=== PATIENT | male | born 1945 | race Caucasian/White ===

== ENCOUNTER 2025-02-17 05:58 | Emergency (ER) | payer MEDICARE, SELFPAY ==
--- NOTE | ~2025-02-17 | CT_ITS ---
EXAMINATION: CT brain wo con DATE: 02/17/2025 06:28 INDICATION: Fall with right frontal scalp hematoma. TECHNIQUE: Computed tomography (CT) of the head was performed without intravenous contrast. Sagittal and coronal reconstructions were performed. The mA was adjusted according to patient size. Iterative reconstruction technique was employed. The dose-length product was 681.00 mGy-cm. COMPARISON: None FINDINGS: Small right frontal scalp hematoma. No fracture. No acute intracranial hemorrhage, acute infarction o r abnormal extra axial fluid collection. There is mild scattered white matter hypoattenuation consist ent with chronic small vessel ischemic disease. Symmetric prominence of the sulci and ventricles cons istent with moderate to severe age-appropriate diffuse cerebral volume loss. No mass/mass effect. Com plete opacification of the right maxillary sinus which demonstrates thickened sclerotic [place] consist ent with chronic sinusitis. Small amount of mucus versus mucosal thickening at the dependent aspect o f the remaining sphenoid sinus change of prior bilateral ethmoidectomies, right-sided turbinectomy wi th resection of the anterior [place] of the bilateral sphenoid sinuses. Changes of bilateral intraocula r lens replacement. The orbits and mastoid air cells are normal. IMPRESSION: 1. No fracture or acute intracranial process. 2. Age-related changes including moderate to severe diffuse volume loss and mild scattered white rene er hypoattenuation consistent with chronic small vessel ischemic disease. 3. Postoperative change of the paranasal sinuses chronic right maxillary sinusitis. Reviewed, dictated and finalized at location A. IMPRESSION: 1. No fracture or acute intracranial process. 2. Age-related changes including moderate to severe diffuse volume loss and mil d scattered white matter hypoattenuation consistent with chronic small vessel i schemic disease. 3. Postoperative change of the paranasal sinuses chronic right maxillary sinusi tis.
--- NOTE | ~2025-02-17 | CT_ITS ---
EXAMINATION: CT cervical spine wo con DATE: 02/17/2025 06:29 INDICATION: Neck pain post fall one day prior TECHNIQUE: Computed tomography (CT) of the cervical spine was performed without intravenous contrast. Automated exposure control and iterative reconstruction technique were employed. The dose-length pro duct was 526.55 mGy-cm. COMPARISON: None FINDINGS: Slight dextrocurvature. 2 mm anterolisthesis of C3 on C4 and slight reversal of the more caudal cervi rohan spine. Severe osteoarthritis at the atlantoaxial articulation. Vertebral body heights are normal with anterior fusion at C6-C7. No acute fracture. There is moderate disc height loss at C5-C6, T2-3 a nd visualized portion of T3-T4. Mild disc height loss at C3-C4, C4-C5, C7-T1 and T1-T2. Mild central canal stenosis resulting from the spondylolisthesis at C3-C4, related to hypertrophic change at the f used C6-C7 disc space and small disc bulges at the intervening C4-C5 and C5-C6 levels. There is moder ate to severe multilevel bilateral cervical facet and uncovertebral osteoarthritis. This contributes to mild multilevel bilateral cervical neural foraminal stenosis. Atherosclerotic calcifications at th e bilateral carotid bulbs. Cervical soft tissues are otherwise unremarkable. Visualized apices of leana gs are clear. IMPRESSION: 1. Moderate to severe cervical spondylosis with no acute osseous abnormality. Reviewed, dictated and finalized at location A.
[2025-02-17 06:03] VITALS: BP 152/69; PULSE 67; RESP 18; TEMP 36.1; O2SAT 98
--- NOTE | 2025-02-17 06:03 | ED.HEATRA ---
HPI - Head Injury General Chief complaint: Fall Stated complaint: Altered mental status after fall Time Seen by Provider: 02/17/25 06:01 Source: patient Mode of arrival: wheelchair Limitations: dementia History of Present Illness HPI Narrative: Patient is an 79-year-old male from the nursing facility who walked right into a wall last night per his history. Nursing facility found him this morning with a goose egg on his right forehead. He is not on blood thinners beyond aspirin. He does have severe dementia. Patient does have a headache. MD Complaint: head injury and head pain Onset (ago): hour(s) ( In the past 6-10 hours) Mechanism of Injury: fall Place: home Loss of Consciousness: unsure Location of injury: frontal ( right forehead) and face Severity: mild Severity scale (1-10): 3 Quality: sharp and aching Radiation: none Other Injuries: none Context: on aspirin Associated symptoms: denies other symptoms Review of Systems Review of Systems: All systems reviewed & are unremarkable except as noted in HPI and below Constitutional: Constitutional: Reports no additional constitutional complaints Eyes: Eyes: Reports no additional eye complaints ENT: Reports system reviewed and no additional complaints, except as documented Cardiovascular: Cardiovascular: Reports no additional cardiovascular complaints Respiratory: Respiratory: Reports no additional respiratory complaints Gastrointestinal: Gastrointestinal: Reports no additional gastrointestinal complaints Genitourinary: Genitourinary: Reports no additional male genitourinary complaints Musculoskeletal: Musculoskeletal: Reports no additional musculoskeletal complaints Integumentary/Breasts: Skin/Breast: Reports system reviewed and no additional complaints, except as docu Neurologic: Reports system reviewed and no additional complaints, except as documented Psychiatric: Psychiatric: Reports no additional psychiatric complaints Endocrine: Endocrine: Reports no additional endocrine complaints Hematologic/Lymphatic: Hematologic/Lymphatic: Reports no additional hematologic/lymphatic complaints Allergic/Immunologic: Allergic/Immunologic: Reports no additional allergic/immunologic complaints Exam Const: General: healthy appearing Nutritional Appearance: well nourished Limitations: other limitations ( severe dementia) HENMT: Head: normal to inspection Ears: external ears normal Face/Nose/Sinus: Normal external nose present Eyes: Conjunctivae: conjunctivae normal Pupils: Equal, round and reactive pupils present EOM: EOMs intact bilaterally Neck: Neck: normal visual inspection Chest: Chest palpation & inspection: normal inspection of the chest Resp: Effort & Inspection: normal respiratory effort and not labored Auscultation: clear to auscultation bilaterally and no crackles Cardio: Rate: regular rate Rhythm: regular rhythm Heart sounds: no murmurs GI: Inspection: non-distended GI Palp: Yes Soft to palpation and No Tenderness to palpation present (GI) Auscultation: normal bowel sounds : General: Yes bladder normal to palpation Back/Spine/Pelvis: Back: no CVA tenderness Skin: General skin exam: normal color Rashes: no rashes Wounds: wound noted and wounds noted Other: right forehead has a large hematoma formation with localized ecchymosis and superficial laceration in the middle Neuro: General: moves all extremities, no meningeal signs and no focal motor deficits Cranial nerves: Yes CN's II-XII intact bilaterally Speech: normal speech Gait exam (Neuro): Normal gait present Extrem: General: normal to inspection Psych: Mental Status: mental status grossly normal Affect: normal affect Attitude: cooperative Course Vital Signs Vital signs: Vital Signs Temperature 36.1 C L 02/17/25 06:03 Pulse Rate 67 02/17/25 06:03 Respiratory Rate 18 02/17/25 06:03 Blood Pressure 152/69 H 02/17/25 06:03 Pulse Oximetry 98 02/17/25 06:03 Oxygen Delivery Room Air 02/17/25 06:03 Temperature 36.1 C L 02/17/25 06:03 Pulse Rate 67 02/17/25 06:03 Respiratory Rate 18 02/17/25 06:03 Blood Pressure 152/69 H 02/17/25 06:03 Pulse Oximetry 98 02/17/25 06:03 Oxygen Delivery Room Air 02/17/25 06:03 MDM - Head Injury MDM Narrative Medical decision making narrative: patient is an 79-year-old male with a fall and head injury last night at the nursing facility. We will do CT scans this time. Imaging Data Attestation: I personally reviewed and interpreted this imaging study as follows: Radiologist's impression: CT scan of the head is negative for acute process Discharge Plan Discharge Clinical Impression: Head injury, Fall Patient Disposition: Home Condition: Stable Instructions: Head Injury (ED) Patient Language: Kyrgyz Follow-up/Referrals: David Reyes MD [Primary Care Provider] -
--- OUTSIDE RECORDS SUMMARY | 2025-02-17 06:03 | XMS_ITS ---
Author Organization [facility] Care Team Providers Care Professional Tutor Name Role Phone Cesia Domínguez Unavailable Unavailable David Reyes Unavailable Unavailable Shruthi Zuñiga Unavailable Unavailable Chirag Earl Unavailable Unavailable Allergies and adverse reactions Code CodeSystem Substance Reaction Severity StartDate Concern Status 468048403 SNOMED CT Cephalosporins Unknown 02/02/2025 ac tive 2180 RXNORM ceFAZolin Unknown 02/02/2025 active Care Team Name Role Address Phone Organization Dates David Reyes PCP [address] [place], [address], [facility] (Office): : : : [facility] 02/02/2025 - present Cesia Domínguez [address] [place] [address], [address], [facility] (Cell): [facility] 02/02/2025 - present Shruthi Zuñiga [address], [place], [place], [facility], [place] (Office): [facility] 02/02/2025 - present Chirag Earl [address], [place], [address], [place] (Office): [facility] 02/02/2025 - present Goals Section Description Status Target Date Decrease risk of fall and/or minimize injuries from falls X 90 days Active 02/22/2025 Jose Daniel will participate in 5 activities of their choosing, per week, through the next review. Active 02/22/2025 Mr. Chin have no nutritio nal/weight problems during review period. Active 02/22/2025 My personal preferences will be assessed and addressed by facility staff as reasonable through the review date. Active Resident will continue to pe rform current level of ADL function through review date Active 02/22/2025 Resident will maintain accep table quality of life through next review Active 02/22/2025 Resident will participate wi th ADL's daily and ADL status will improve by target date Active 02/22/2025 Resident will remain safely in facility through next review Active 02/22/2025 Resident wishes will be hono red through next review Code Status reviewed: Active 02/22/2025 Resident wishes will be honored thru next review Active 02/22/2025 Residents spiritual needs wi ll be met, as identified by the resident through the next review. Active 02/22/2025 The resident will not have a n interruption in normal activities due to pain through next review Active 02/22/2025 The resident will receive tr eatment as ordered without complications Active 02/22/2025 The resident will verbalize adequate pain relief of pain or ability to cope with incompletely relieved pain through next review Active 02/22/2025 Will adjust to facility as e videnced by coming out of room thru next review Active 02/22/2025 Will adjust to facility as e videnced by participating in activities thru next review Active 02/22/2025 Functional Status Code Name Recorded Time Value Entered By Chair/xnc-iv-abqfk transfer 02/17/2025 Partial/moder ate assistance [facility] Eating 02/17/2025 Not assessed [facility] Feeding or Eating 02/16/2025 Independent bpittman Indicate the type of wheelch air or scooter used 02/17/2025 Not assessed [facility] Lying to sitting on side of bed 02/17/2025 Partial/m oderate assistance [facility] Oral hygiene 02/17/2025 Not assessed [facility] Personal hygiene 02/17/2025 Not assessed [facility] Roll left and right 02/17/2025 Not assessed [facility] Sit to lying 02/17/2025 Partial/moderate assistance [facility] Sit to stand 02/17/2025 Partial/moderate assistance [facility] Toilet transfer 02/17/2025 Not assessed [facility] Toileting hygiene 02/17/2025 Dependent [facility] Walk 10 feet 02/17/2025 Not assessed [facility] Walk 150 feet 02/17/2025 Not assessed [facility] Wheel 150 feet 02/17/2025 Not assessed [facility] Immunizations Immunization Status Vaccine Details Vaccine Code CodeSystem Date Notes TB 2 Step Mantoux Skin Test completed tuberculin skin test; unspecified formulation lotNumber: [id number] expiry: 10/27/2027 Mfg: TURBERSOL Given 0.1 ml Right Forearm intradermally Step 1 of Multi-step with next step required 98 CVX created date: 02/06/2025 consent date: 02/05/2025 administer ed date: 02/05/2025 Prevnar 20 completed Pneumococcal conjugate vaccine 20-valent (PCV20), polysaccharide [id number] conjugate, adjuvant, preservative free Given 0.5 ml intramuscularly 216 CVX created date: 02/09/2025 consent date: 02/08/2025 administer ed date: 02/09/2025 Educated by on 02/08/2025 COVID-19, mRNA, LNP-S, PF, 30 mcg/0.3 mL dose, bonilla-sucrose completed SARS-COV-2 (COVID-19) vaccine, mRNA, spike protein, LNP, preservative free, 30 mcg/0.3mL dose, bonilla-sucrose formulation expiry: 02/06/2026 Mfg: Comirnaty Given 0.3 ml Left Deltoid intramuscularly 217 CVX created date: 02/13/2025 consent date: 02/12/2025 administer ed date: 02/12/2025 Medications Section Medication Name Status Code CodeSystem Dose Route Frequency Admin Type Sig Text Start Date End Date Levothyroxine Sodium Oral Tablet 50 MCG active 539698 RXNORM 50 mcg Oral one time a day Routine Give 50 mcg by mouth one time a day for thyroi d 2024 - Furosemide Oral Tablet 80 MG aborted 915492 RXNORM 80 mg Oral one time a day Routine Give 80 mg by mouth one time a day for edema 02/08 Nystatin Powder active n/a n/a Topical as needed PRN Apply to affect ed area topica lly every 12 hours as needed for affect ed area 2024 - Potassium Chloride Jessica ER Oral Tablet Extended Release 20 MEQ aborted 322770 4 RXNORM 2 tablet Oral one time a day Routine Give 2 tablet by mouth one time a day for supple ment 02/08 Carvedilol Oral Tablet 12.5 MG active 19991127 RXNORM 12.5 mg Oral two times a day Routine Give 12.5 mg by mouth two times a day for HTN 2024 - Citalopram Hydrobromide Oral Tablet 40 MG aborted 259950 RXNORM 40 mg Oral one time a day Routine Give 40 mg by mouth one time a day for depres abhay/a nxiety 02/08 Betamethasone Valerate External Cream 0.1 % active 101406 RXNORM n/a n/a Topical two times a day Routine Apply to affect ed area topica lly two times a day for skin care 2024 - Magnesium Oxide Oral Tablet 400 MG aborted 1 tablet Oral one time a day Routine Give 1 tablet by mouth one time a day for supple ment 02/05 Insulin Glargine Subcutaneous Solution 100 UNIT/ML aborted 928203 RXNORM 25 unit Subcuta neous at bedtime Routine Inject 25 unit subcut aneous ly at bedtim e for DM 02/02 hydrOXYzine Pamoate Oral Capsule 25 MG aborted 592272 RXNORM 25 mg Oral as needed PRN Give 25 mg by mouth every 6 hours as needed for itchin g 02/06 Vitamin D3 Oral Tablet 25 MCG aborted 1 tablet Oral one time a day Routine Give 1 tablet by mouth one time a day for supple ment 02/08 Magnesium Oxide Tablet 400 MG aborted 869265 RXNORM 1 tablet Oral one time a day Routine Give 1 tablet by mouth one time a day for supple ment 02/08 Aspirin 81 Oral Tablet Chewable aborted 81 millig hector Oral one time a day Routine Give 81 millig hector by mouth one time a day for supple ment 02/08 Nystatin External Cream 617503 UNIT/GM active 868860 RXNORM n/a n/a Topical as needed PRN Apply to affect ed area topica lly every 12 hours as needed for dry skin 2024 - QUEtiapine Fumarate Oral Tablet 25 MG active 392285 RXNORM 12.5 mg Oral at bedtime Routine Give 12.5 mg by mouth at bedtim e for behavi ors 2024 - Atorvastatin Calcium Oral Tablet 20 MG active 459137 RXNORM 20 mg Oral at bedtime Routine Give 20 mg by mouth at bedtim e for choles terol 2024 - Artificial Tears Ophthalmic Ointment 83-15 % active 1 ribbon Ophthal sydney as needed PRN Instil l 1 ribbon in both eyes every 24 hours as needed for dry eyes 2024 - Gabapentin Oral Tablet 600 MG active 239752 RXNORM 600 mg Oral two times a day Routine Give 600 mg by mouth two times a day for neurop athy 2024 - Omeprazole Oral Capsule Delayed Release 40 MG aborted 20021105 RXNORM 40 mg Oral one time a day Routine Give 40 mg by mouth one time a day for GERD 02/08 Insulin Glargine-yfgn 100 UNIT/ML Solution pen-injector active 714787 1 RXNORM 25 unit Subcuta neous at bedtime Routine Inject 25 unit subcut aneous ly at bedtim e relate d to TYPE 2 DIABET ES MELLIT US WITH UNSPEC IFIED DIABET IC RETINO YAS WITHOU T MACULA R EDEMA (E11.3 19) 2024 - Methocarbamol Oral Tablet 1000 MG active 750453 4 RXNORM 1000 mg Oral four times a day Routine Give 1000 mg by mouth four times a day relate d to OTHER MUSCLE SPASM (M62.8 38) 2024 - hydrOXYzine Pamoate Oral Capsule 25 MG active 427945 RXNORM 25 mg Oral as needed PRN Give 25 mg by mouth every 6 hours as needed for itchin g for 180 Days 08/05 Prevnar 20 Intramuscular Suspension Prefilled Syringe 0.5 ML complete d 974760 4 RXNORM 1 dose Intramu scular at bedtime Routine Inject 1 dose intram uscula rly at bedtim e for immuni zation for 1 Day 02/10 Arexvy Intramuscular Suspension Reconstituted 120 MCG/0.5ML aborted 887441 9 RXNORM 1 dose Intramu scular at bedtime Routine Inject 1 dose intram uscula rly at bedtim e for immuni zation for 1 Day 02/17 Comirnaty Intramuscular Suspension Prefilled Syringe 30 MCG/0.3ML complete d 376364 1 RXNORM 1 dose Intramu scular at bedtime Routine Inject 1 dose intram uscula rly at bedtim e for immuni zation for 1 Day 02/14 Potassium Chloride Jessica ER Oral Tablet Extended Release 20 MEQ active 667168 4 RXNORM 2 tablet Oral in the morning Routine Give 2 tablet by mouth in the mornin g for supple ment 2024 - Vitamin D3 Oral Tablet 25 MCG active 1 tablet Oral in the morning Routine Give 1 tablet by mouth in the mornin g for supple ment 2024 - Citalopram Hydrobromide Oral Tablet 40 MG active 096727 RXNORM 40 mg Oral in the morning Routine Give 40 mg by mouth in the mornin g for depres abhay/a nxiety 2024 - Furosemide Oral Tablet 80 MG active 19761126 RXNORM 80 mg Oral in the morning Routine Give 80 mg by mouth in the mornin g for edema 2024 - Magnesium Oxide Tablet 400 MG active 19861226 RXNORM 1 tablet Oral in the morning Routine Give 1 tablet by mouth in the mornin g for supple ment 2024 - Omeprazole Oral Capsule Delayed Release 40 MG active 20021105 RXNORM 40 mg Oral in the morning Routine Give 40 mg by mouth in the mornin g for GERD 2024 - Aspirin 81 Oral Tablet Chewable active 81 millig hector Oral in the morning Routine Give 81 millig hector by mouth in the mornin g for supple ment 2024 - Arexvy Intramuscular Suspension Reconstituted 120 MCG/0.5ML active 133264 9 RXNORM 1 dose Intramu scular in the morning Routine Inject 1 dose intram uscula rly in the mornin g for immuni zation for 1 Day 02/18 Mental Status Section Date Assessment Total Score Description 02/04/2025 BIMS 06 severe cognitiv e impairment CAM 0 No delirium ind icated PHQ-9 09 mild depression Problems Problem # Description Date of onset Resolved Date Code CodeSystem Concern Status 1 ATHEROSCLEROTIC HEART DISEASE OF [place] CORONARY ARTERY WITHOUT ANGINA PECTORIS 02/03/[address] active 2 ATRIOVENTRICULAR BLOCK, SECOND DEGREE 02/03/[address] active 3 BENIGN PROSTATIC HYPERPLASIA WITHOUT LOWER URINARY TRACT SYMPTOMS 02/03/[address] active 4 BODY MASS INDEX [BMI] 35.0-35.9, ADULT 02/03/[address] active 5 CEREBRAL ISCHEMIA 02/03/[address] active 6 CHRONIC KIDNEY DISEASE, STAGE 3 UNSPECIFIED 02/03/[address] active 7 CHRONIC MAXILLARY SINUSITIS 02/03/[address] active 8 CHRONIC TOTAL OCCLUSION OF CORONARY ARTERY 02/03/[address] active 9 DEPRESSION, UNSPECIFIED 02/03/[address] active 10 DISORDER OF KIDNEY AND URETER, UNSPECIFIED 02/03/[address] active 11 GASTRO-ESOPHAGEAL REFLUX DISEASE WITHOUT ESOPHAGITIS 02/03/[address] active 12 GOUT, UNSPECIFIED 02/03/[address] active 13 HYPOKALEMIA 02/03/[address] active 14 MALIGNANT NEOPLASM OF UNSPECIFIED KIDNEY, EXCEPT RENAL PELVIS 02/03/[address] active 15 OTHER MUSCLE SPASM 02/03/[address] active 16 OTHER PERSISTENT ATRIAL FIBRILLATION 02/03/[address] active 17 OTHER SPECIFIED DISORDERS OF MUSCLE 02/03/[address] active 18 PEPTIC ULCER, SITE UNSPECIFIED, UNSPECIFIED ACUTE OR CHRONIC, WITHOUT HEMORRHAGE OR PERFORATION 02/03/[address] active 19 PRESENCE OF CARDIAC PACEMAKER 02/03/[address] active 20 REPEATED FALLS 02/03/[address] active 21 SENILE DEGENERATION OF BRAIN, NOT ELSEWHERE CLASSIFIED 02/03/[address] active 22 SICK SINUS SYNDROME 02/03/[address] active 23 TYPE 2 DIABETES MELLITUS WITH DIABETIC NEUROPATHY, UNSPECIFIED 02/03/[address] active 24 TYPE 2 DIABETES MELLITUS WITH UNSPECIFIED DIABETIC RETINOPATHY WITHOUT MACULAR EDEMA 02/03/[address] active 25 UNSPECIFIED DEMENTIA, UNSPECIFIED SEVERITY, WITHOUT BEHAVIORAL DISTURBANCE, PSYCHOTIC DISTURBANCE, MOOD DISTURBANCE, AND ANXIETY 02/03/[address] active 26 UNSPECIFIED DIASTOLIC (CONGESTIVE) HEART FAILURE 02/03/[address] active 27 UNSTEADINESS ON FEET 02/03/[address] active 28 VENOUS INSUFFICIENCY (CHRONIC) (PERIPHERAL) 02/03/[address] active Reason for Referral No Reasons for Referral Entered Social History Social History Observation Description Start Date End Date Code Code System Current Smoking Status Tobacco smoking consumption unknown 067805486 SNOMED CT Sex Assigned At Male 1945 [address][birth year]-4 [facility] Gender Identity Vital Signs Code Code System Vitals Name Values and Units Timing Information 2339-0 [facility] Blood Sugar Vuxfk=030.0 Units=mg/dL 02/17/2025 44591-4 [facility] Pain Level Value=4.0 02/17/2025 66943-5 [facility] O2 % BldC Oximetry Value=97.0 Units= % 02/16/2025 9279-1 [facility] Respiratory Rate Value=18.0 Units=/m in 02/16/2025 8462-4 [facility] Blood Pressure-Diastolic Value=67 Un its=mmHg 02/16/2025 8480-6 [facility] Blood Pressure-Systolic Rusaf=032 Un its=mmHg 02/16/2025 8310-5 [facility] Body Temperature Value=97.4 Units= F 02/16/2025 8867-4 [facility] Heart rate Value=66.0 Units=/min 92853-0 [facility] Weight Iahmf=117.0 Units=Lbs 07/2025 8302-2 [facility] Height Value=65.0 Units=Inches 02/02/2025
--- NOTE | 2025-02-17 06:38 | PC.NURSE ---
Received a call from KRISHAN Mckeon from [facility], she stated that the patient did not actually fall, their note states that around 18:00 last night patient was walking down the hallway and bumped the right side of his forehead on the door frame, he did not lose balance or fall, was walked back to his chair. The bruising was present from a different fall at a different time, not this occurrence. [facility] staff stated that he wasn't himself this morning so they sent him over for evaluation, not fall.
[2025-02-17 07:47] VITALS: BP 150/60; PULSE 60; RESP 18; TEMP 36.6; O2SAT 98
== END 2025-02-17 07:47 ==
LOC: CHSED 07:44
PROVIDERS: Emergency Provider Emergency Medicine; PCP Family Medicine
DX: S09.90XA Unspecified injury of head, initial encounter (principal); F03.90 Unspecified dementia, unspecified severity, without behavioral disturbance, psychotic disturbance, mood disturbance, and anxiety; Z79.82 Long term (current) use of aspirin; W19.XXXA Unspecified fall, initial encounter
CPT/HCPCS: 70450; 72125; 99284

== ENCOUNTER 2025-02-21 08:32 | Outpatient (CLI) | payer MEDICARE, SELFPAY ==
[2025-02-21 09:06] LABS: Basophils Absolute Auto 0.07 K/mm3 (0.00-0.10); Basophils Percent Auto 0.9 % (0.0-1.0); Eosinophils Absolute Auto 0.48 K/mm3 (0.02-0.50); Hematocrit 35.2 % (37.0-46.0); Hemoglobin 11.1 g/dL (12.4-15.3); Immature Granulocyte Absolute 0.09 K/mm3 (0.00-0.00); Immature Granulocyte Percent A 1.1 % (0.0-0.0); Lymphocytes Absolute Auto 1.46 K/mm3 (1.10-4.50); Lymphocytes Percent Auto 18.2 % (18.0-42.0); Mean Corpuscular HGB Conc 31.5 g/dL (32-36); Mean Corpuscular Volume 88.9 fL (78.0-102.0); Mean Platelet Volume 9.8 fl (8.7-11.0); Monocytes Absolute Auto 0.53 K/mm3 (0.10-0.90); Monocytes Percent Auto 6.6 % (2.0-11.0); Neutrophils Absolute Auto 5.38 K/mm3 (1.70-7.20); Neutrophils Percent Auto 67.2 % (50.0-70.0); Platelet Count Result 251 K/mm3 (150-420); Red Blood Count 3.96 M/mm3 (4.70-6.10); Red Cell Distribution Width 13.7 % (11.6-14.4)
[2025-02-21 10:15] LABS: Anion Gap 7 mmol/L (4-12); Blood Urea Nitrogen 33 mg/dL (9-20); Calcium 8.4 mg/dL (8.4-10.2); Carbon Dioxide 28 mmol/L (22-30); Chloride 103 mmol/L (98-107); Estimated Glomerular Filt Rate 45; Glucose 96 mg/dL (65-110); Osmolality Calculated 293 mOsm/kg (285-295); Potassium 4.1 mmol/L (3.4-5.0); Sodium 138 mmol/L (137-145)
[2025-02-21 15:43] LABS: Magnesium 1.9 mg/dL (1.6-2.3)
[2025-02-21 15:54] LABS: NT Pro B Type Natriuretic Pept 3780 pg/mL (19.9-100)
== END 2025-02-21 08:33 | disposition home or self-care (01) ==
LOC: CHSLAB 08:37
PROVIDERS: PCP Family Medicine; Visit Provider Family Medicine
DX: I10 Essential (primary) hypertension (principal); R53.81 Other malaise; M79.89 Other specified soft tissue disorders; I50.9 Heart failure, unspecified
CPT/HCPCS: 36415; 80048; 83735; 83880; 85025

== ENCOUNTER 2025-02-27 13:40 | Outpatient (CLI) | payer MEDICARE, SELFPAY ==
--- NOTE | ~2025-02-27 | US_ITS ---
EXAMINATION:US venous doppler LE RT INDICATION:Chronic venous hypertension TECHNIQUE: Multiple grayscale, color flow and Doppler images of the right lower extremity deep venous systems were obtained and reviewed. COMPARISON:No prior studies for comparison. FINDINGS: The common femoral, superficial femoral and popliteal veins demonstrate normal respiratory variation, augmentation and compressibility. Color flow is also seen within the posterior tibial, pe roneal, greater saphenous and profunda veins. Reflux is demonstrated in the right femoral vein. IMPRESSION: 1: No lower extremity deep venous thrombosis. Reviewed, dictated and finalized at location A.
--- NOTE | ~2025-02-27 | US_ITS ---
US arterial ankle brachial ind INDICATION: Chronic venous hypertension TECHNIQUE: Segmental pressures and plethysmographic and Doppler waveforms of the brachial and lower e xtremity arteries were obtained. COMPARISON: None. FINDINGS: Right and left brachial artery pressures of 139 mm Hg and 141 mm Hg, respectively, are concordant (no rmal difference <= 30 mmHg). The right ankle-brachial index (HILTON) is 1.09 (normal >= 0.9-1.0). The right great toe-brachial index (TBI) is 0.89 (normal >= 0.60). The left HILTON is 1.11. The left TBI is 0.79. IMPRESSION: 1. Normal ankle-brachial indices Reviewed, dictated and finalized at location A.
== END 2025-02-27 13:41 | disposition home or self-care (01) ==
PROVIDERS: PCP Family Medicine
DX: I87.311 Chronic venous hypertension (idiopathic) with ulcer of right lower extremity (principal); R09.89 Other specified symptoms and signs involving the circulatory and respiratory systems
CPT/HCPCS: 93922; 93971

== ENCOUNTER 2025-03-27 13:12 | Outpatient (CLI) | payer MEDICARE, SELFPAY ==
[2025-03-27 13:46] LABS: Hemoglobin A1C. 7.3 % (<5.7)
[2025-03-27 13:57] LABS: Alanine Aminotransferase 18 U/L (6-50); Albumin Level 3.5 g/dL (3.5-5.1); Alkaline Phosphatase 122 U/L (38-126); Anion Gap 6 mmol/L (4-12); Aspartate Amino Transferase 37 U/L (17-59); Bilirubin,Total 0.5 mg/dL (0.2-1.3); Blood Urea Nitrogen 32 mg/dL (9-20); Calcium 8.7 mg/dL (8.4-10.2); Carbon Dioxide 31 mmol/L (22-30); Chloride 99 mmol/L (98-107); Estimated Glomerular Filt Rate 37; Glucose 194 mg/dL (65-110); Osmolality Calculated 293 mOsm/kg (285-295); Potassium 4.6 mmol/L (3.4-5.0); Sodium 136 mmol/L (137-145); Total Protein 6.3 g/dL (6.3-8.2)
== END 2025-03-27 13:13 | disposition home or self-care (01) ==
LOC: CHSLAB 13:15
PROVIDERS: PCP Family Medicine; Visit Provider Family Medicine
DX: N18.30 Chronic kidney disease, stage 3 unspecified (principal); E11.65 Type 2 diabetes mellitus with hyperglycemia
CPT/HCPCS: 36415; 80053; 83036

== ENCOUNTER 2025-04-15 07:22 | Outpatient (NON) | payer MEDICARE, SELFPAY ==
--- OUTSIDE RECORDS SUMMARY | 2025-04-15 07:27 | XMS_ITS | Encounter Summary ---
Author Organization [facility] Address [address] [place] [address] Care Team Providers Care Editor Magazine Name Role Phone Eran Masterson MD Primary Care Provider [phone] Yvonne Mosqueda MD Unavailable Sohail Stafford MD Unavailable Unavail able Hailee Watts MD Unavailable [phone] Loni Ang MD Unavailable Monica Gauthier MD, Devin Unavailable [phone] Jori MATHIAS MD, Courtney Unavailable [phone] Noemi Huynh MD Unavailable Mario Salazar MD Unavailable [phone] Marti Arreola RN Unavailable Unavailable Encounter Details Date Type Department Care Team (Late st Contact Info) Description 09/23/2016 Abstract [facility] [address] [place] [address] Yvonne Mosqueda MD [address] [place] [address] Social History Tobacco Use Types Packs/Day Years Used Date Smoking Tobacco: Former Smokeless Tobacco: Current Chew Comments:Past smoker, regina hooper uses smokeless tobacco ([place]). Alcohol Use Standard Drinks/Week Comments No 0 (1 standard drink = 0.6 oz pur e alcohol) Sex and Gender Information Value Date Recorded Sex Assigned at Male 03/13/2019 9:11 AM CDT Legal Sex Male 10:43 PM CDT Gender Identity Male 03/13/2019 9:11 AM CDT Sexual Orientation Straight 01/28/2025 4: 06 AM CDT Occupation Industry Job Start Date Job End Date Retired Not on file Not on file Not on file documented as of this encounter Plan of Treatment Upcoming Encounters Date Type Department Care Team (Late st Contact Info) Description 06/27/2025 2:30 AM CDT Allied Health/Nurse Visit [facility] [address] [place] [address] Yvonne Mosqueda MD [address] [place] [address] documented as of this encounter Procedures Procedure Name Priority Date/Time Associated Diagnosis Comments CMP (OUTSIDE LAB) Routine 09/10/2016 documented in this encounter Results * CMP (OUTSIDE LAB) (09/10/2016) SODIUM S/P/B 140 POTASSIUM S/P/B 4.5 CHLORIDE S/P/B 94 BUN 30 CREATININE S/P/B 1.43 EGFR NON-AFR. AMER. 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 COVID-19 Rule Out 12/14/2020 12/14/2020 12/15/2020 8:06 PM CDT COVID-19 Rule Out 01/18/2021 01/18/2021 01/19/2021 4:32 PM CDT COVID-19 Rule Out 02/04/2021 02/04/2021 02/04/2021 7:31 PM CDT COVID-19 Rule Out 04/13/2021 04/13/2021 04/13/2021 6:31 PM CDT COVID-19 Rule Out 05/17/2021 05/17/2021 05/17/2021 8:43 PM CDT COVID-19 Rule Out 06/21/2021 06/21/2021 06/21/2021 9:20 PM CDT COVID-19 Rule Out 08/23/2021 08/23/2021 08/23/2021 7:52 PM STATIONARY ENGINEER APPRENTICE COVID-19 Rule Out 10/04/2021 10/04/2021 10/04/2021 8:30 PM STATIONARY ENGINEER APPRENTICE COVID-19 Rule Out 11/08/2021 11/08/2021 11/08/2021 6:51 PM STATIONARY ENGINEER APPRENTICE COVID-19 Rule Out 12/13/2021 12/13/2021 12/13/2021 7:13 PM CDT COVID-19 Rule Out 12/30/2021 12/30/2021 12/30/2021 8:06 PM CDT COVID-19 Rule Out 06/21/2022 06/21/2022 06/21/2022 9:41 PM CDT documented as of this encounter Care Teams Editor Magazine Relationship Specialty Start Date End Date Eran Masterson MD [address] [place] [address] PCP - General FAMILY PRACTICE 07/03/16 vYonne Mosqueda MD [address] [place] [address] CLINICAL CARDIAC ELECTROPHYSIOLOGY 07/03/16 Sohail Stafford MD [address] [place] [phone] CARDIOVASCULAR DISEASE 11/03/16 11/12/24 Hailee Watts MD [address] [place] [address] ENDOCRINOLOGY 09/13/19 05/18/22 Loni Ang MD [address] [place] [address] INTERNAL MEDICINE 09/13/19 11/25/20 Oscar Anderson MD [facility] NE[facility]OSURGERY [address] [place] [address] NEUROLOGICAL SURGERY 11/26/20 11/22/22 Theresa Hsieh III, MD [facility] DEPT OF SURGERY - NEUROSURGERY [address] [place] [address] Consulting Physician UROLOGY 01/22/21 11/22/22 Noemi Huynh MD [address] [place] [address] OTOLARYNGOLOGY 01/22/21 11/22/22 Mario Salazar MD [address] [place] [phone] UROLOGY 11/23/22 Marti Arreola, KRISHAN Registered Nurse CARE MANAGEMENT 01/29/25 02/26/25 documented as of this encounter
--- OUTSIDE RECORDS SUMMARY | 2025-04-15 07:27 | XMS_ITS | Encounter Summary ---
Author Organization [facility] Address [address] [place] [address] Care Team Providers Care Public Records Officer Name Role Phone Eran Masterson MD Primary Care Provider [phone] Yvonne Mosqueda MD Unavailable Sohail Stafford MD Unavailable Unavail able Hailee Watts MD Unavailable [phone] Loni Ang MD Unavailable Monica Gauthier MD, Devin Unavailable [phone] Jori MATHIAS MD, Courtney Unavailable [phone] Noemi Huynh MD Unavailable Mario Salazar MD Unavailable [phone] Marti Arreola RN Unavailable Unavailable Encounter Details Date Type Department Care Team (Late st Contact Info) Description 02/28/2014 Abstract [facility] AT [address] [place] [address] Sohail Stafford MD Social History Tobacco Use Types Packs/Day Years Used Date Smoking Tobacco: Former Smokeless Tobacco: Current Chew Comments:Past smoker, regnia hooper uses smokeless tobacco ([place]). Alcohol Use Standard Drinks/Week Comments No 0 [...] 06/27/2025 2:30 AM CDT Allied Health[facility] [address] [place] [phone] Yvonne Mosqueda MD [address] [place] [address] documented as of this encounter Visit Diagnoses Not on filedocumented [...] Rule Out 08/23/2021 08/23/2021 08/23/2021 7:52 PM DATA INTEGRATION ANALYST COVID-19 Rule Out 10/04/2021 10/04/2021 10/04/2021 8:30 PM DATA INTEGRATION ANALYST COVID-19 Rule Out 11/08/2021 11/08/2021 11/08/2021 6:51 PM DATA INTEGRATION ANALYST COVID-19 Rule Out 12/13/2021 12/13/2021 12/13/2021 7:13 PM CDT COVID-19 Rule Out 12/30/2021 12/30/2021 12/30/2021 8:06 PM CDT COVID-19 Rule Out 06/21/2022 06/21/2022 06/21/2022 9:41 PM CDT documented as of this encounter Care Teams Public Records Officer Relationship Specialty Start Date End Date Eran Masterson MD [address] [facility] [place] [address] PCP - General FAMILY PRACTICE 07/03/16 Yvonne Mosqueda MD [address] [place] [phone] CLINICAL CARDIAC ELECTROPHYSIOLOGY 07/03/16 Sohail Stafford MD [address] [place] [address] CARDIOVASCULAR DISEASE 11/03/16 11/12/24 Hailee Watts MD [address] [place], [place] [phone] ENDOCRINOLOGY 09/13/19 05/18/22 Loni Ang MD [address] [place], [place] [address] INTERNAL MEDICINE 09/13/19 11/25/20 Oscar Anderson MD [facility] - NEUROSURGERY [address] [place], [place] [address] NEUROLOGICAL SURGERY 11/26/20 11/22/22 Theresa Hsieh III, MD [facility] - NEUROSURGERY [address] [place], [place] [address] Consulting Physician UROLOGY 01/22/21 11/22/22 Noemi Huynh MD [address] [place] [address] OTOLARYNGOLOGY 01/22/21 11/22/22 Mario Salazar MD [address] [phone] UROLOGY 11/23/22 Marti Arreola RN Registered Nurse CARE MANAGEMENT 01/29/25 02/26/25 documented as of this encounter
--- OUTSIDE RECORDS SUMMARY | 2025-04-15 07:27 | XMS_ITS | Encounter Summary ---
Author Organization [facility] Address [address] [place] [address] Care Team Providers Care Help Desk Analyst Name Role Phone Eran Masterson MD Primary Care Provider [phone] Yvonne Mosqueda MD Unavailable Sohail Stafford MD Unavailable Unavail able Hailee Watts MD Unavailable [phone] Monica Gauthier MD, Devin Unavailable [phone] Jori MATHIAS MD, Courtney Unavailable [phone] Noemi Huynh MD Unavailable Mario Salazar MD Unavailable [phone] Marti Arreola RN Unavailable Unavailable Encounter Details Date Type Department Care Team (Late st Contact Info) Description 01/06/2022 Hospital Follow-up Call [facility] [address] [place] [address] Davina Walters, RN Social History Tobacco Use Types Packs/Day Years Used Date Smoking Tobacco: Former Cigarettes 3 3 1 11/09/1962 - 09/08/1966 Smokeless Tobacco: Former Chew Quit: 09/08/1963 Comments:Past smoker, regina hooper uses smokeless tobacco ([place]). Alcohol Use Standard Drinks/Week Comments No 0 (1 standard drink = 0.6 oz pur e alcohol) Education Answer Date Recorded What is the highest level of school you have completed or the highest degree you have received? 8th grade 09/08/2021 Sex and Gender Information Value Date Recorded Sex Assigned at Male 03/13/2019 9:11 AM CDT Legal Sex Male 10:43 PM CDT Gender Identity Male 03/13/2019 9:11 AM CDT Sexual Orientation Straight 01/28/2025 4: 06 AM CDT Occupation Industry Job Start Date Job End Date Retired Not on file Not on file Not on file COVID-19 Exposure Response Date Recorded In the last 10 days, have yo u been in contact with someone who was confirmed or suspected to have Coronavirus/COVID-19? No / Unsure 01/02/2022 10:25 AM CDT documented as of this encounter Functional Status * RETIRED Are you deaf or do you have serious difficulty hearing Answer Date of Assessment Author Status No 01/03/2022 2:00 AM CDT Activ e * RETIRED Are you blind or do you have serious difficulty seeing, even when wearing glasses? Answer Date of Assessment Author Status No 01/03/2022 2:00 AM CDT Activ e * Do you have serious difficulty walking or climbing stairs? Answer Date of Assessment Author Status No 01/03/2022 2:00 AM CDT Yefri Benitez RN Active * Do you have difficulty dressing or bathing? Answer Date of Assessment Author Status No 01/03/2022 2:00 AM CDT Yefri Benitez RN Active * Because of a physical, mental, or emotional condition, do you have difficulty doing errands alone such as visiting a doctor's office or shopping? Answer Date of Assessment Author Status No 01/03/2022 2:00 AM CDT Yefri Benitez RN Active documented as of this encounter Mental Status * Because of a physical, mental, or emotional condition, do you have serious difficulty concentrating, remembering, or making decisions? Answer Entry Date Author Status No 01/03/2022 2:00 AM SANDYT Yefri Benitez RN Active documented in this encounter Plan of Treatment Upcoming Encounters Date Type Department Care Team (Late st Contact Info) Description 06/27/2025 2:30 AM CDT Allied Health/Nurse Visit [facility] [address] [place] [phone] Yvonne Mosqueda MD [address] [place] [address] documented as of this encounter Goals Goal Patient Goal Type Associated Problems Recent Progress Patient-Stated? 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 COVID-19 Rule Out 06/21/2022 06/21/2022 06/21/2022 9:41 PM CDT documented as of this encounter Care Teams Help Desk Analyst Relationship Specialty Start Date End Date Eran Masterson MD [address] [facility] [place] [phone] PCP - General FAMILY PRACTICE 07/03/16 Yvonne Mosqueda MD [address] [place] [phone] CLINICAL CARDIAC ELECTROPHYSIOLOGY 07/03/16 Sohail Stafford MD [address] [place] [phone] CARDIOVASCULAR DISEASE 11/03/16 11/12/24 Hailee Watts MD [address] [address] ENDOCRINOLOGY 09/13/19 05/18/22 Oscar Anderson MD [facility] DEPT OF SURGERY - NEUROS[place] [address] NEUROLOGICAL SURGERY 11/26/20 11/22/22 Theresa Hsieh III, MD [facility] DEPT OF SURGERY - NEUROS[place]GERY [place] [address] Consulting Physician UROLOGY 01/22/21 11/22/22 Noemi Huynh MD [address] [place] [phone] OTOLARYNGOLOGY 01/22/21 11/22/22 Mario Salazar MD [address] [place] [phone] UROLOGY 11/23/22 Marti Arreola RN Registered Nurse CARE MANAGEMENT 01/29/25 02/26/25 documented as of this encounter
--- OUTSIDE RECORDS SUMMARY | 2025-04-15 07:27 | XMS_ITS | Encounter Summary ---
Author Organization [facility] Address [address] [place] [address] Care Team Providers Care Blood Bank Laboratory Technologist Name Role Phone Eran Masterson MD Primary Care Provider [phone] Yvonne Mosqueda MD Unavailable [facility] Unavailable Unavail able Hailee Watts MD Unavailable [phone] Loni Ang MD Unavailable Monica Gauthier MD, Devin Unavailable [phone] Jori MATHIAS MD, Courtney Unavailable [phone] Noemi Huynh MD Unavailable Mario Salazar MD Unavailable [phone] Marti Arreola RN Unavailable Unavailable Encounter Details Date Type Department Care Team (Late st Contact Info) Description 07/16/2016 Abstract [facility] AT [facility] [address] [place] [address] Yvonne Mosqueda MD [address] [place] [address] Social History Tobacco Use Types Packs/Day Years Used Date Smoking Tobacco: Former Smokeless Tobacco: Current Chew Comments:Past smoker, regina hooper uses smokeless tobacco ([place]). Alcohol Use Standard Drinks/Week Comments No 0 [...] 06/27/2025 2:30 AM CDT Allied Health/Nurse Visit [facility] [address] [place] [address] Yvonne Mosqueda MD [address] [place] [address] documented as of this encounter Procedures Procedure Name Priority Date/Time Associated Diagnosis Comments CMP (ABSTRACTED LAB) Routine 06/25/2016 documented in this encounter Results * CMP (ABSTRACTED LAB) (06/25/2016) POTASSIUM S/P/B 5.0 CHLORIDE S/P/B 102 CO2 25 BUN 40 CREATININE S/P/B 1.83 EGFR AFR. AMER. 42 EGFR NON-AFR. AMER. 36 CALCIUM S/P/B 9.1 GLUCOSE 58 TOTAL PROTEIN S/P/B 6.1 ALBUMIN S/P/B 4.0 3.5 - 5.0 AST 19 ALT 17 ALKALINE PHOSPHATASE S/P/B 96 BILIRUBIN TOTAL S/P/B 0.5 06/25/2016 us Eran Masterson MD LAB-OUTSIDE/ABSTRACTED Final R esult documented in this encounter Visit Diagnoses Not [...] Rule Out 08/23/2021 08/23/2021 08/23/2021 7:52 PM CDL SERVICE TECHNICIAN COVID-19 Rule Out 10/04/2021 10/04/2021 10/04/2021 8:30 PM CDL SERVICE TECHNICIAN COVID-19 Rule Out 11/08/2021 11/08/2021 11/08/2021 6:51 PM CDL SERVICE TECHNICIAN COVID-19 Rule Out 12/13/2021 12/13/2021 12/13/2021 7:13 PM CDT COVID-19 Rule Out 12/30/2021 12/30/2021 12/30/2021 8:06 PM CDT COVID-19 Rule Out 06/21/2022 06/21/2022 06/21/2022 9:41 PM CDT documented as of this encounter Care Teams Blood Bank Laboratory Technologist Relationship Specialty Start Date End Date Eran Masterson MD [address] [facility] [place] [address] PCP - General FAMILY PRACTICE 07/03/16 Yvonne Mosqueda MD [address] [place] [phone] CLINICAL CARDIAC ELECTROPHYSIOLOGY 07/03/16 Sohail Stafford MD [address] [place] [phone] CARDIOVASCULAR DISEASE 11/03/16 11/12/24 Hailee Watts MD [address] [place] [address] ENDOCRINOLOGY 09/13/19 05/18/22 Loni Ang MD [address] [place] [address] INTERNAL MEDICINE 09/13/19 11/25/20 Oscar Anderson MD [facility] DEPT OF SURGERY - NEUROSURGERY [address] [address] NEUROLOGICAL SURGERY 11/26/20 11/22/22 Theresa Hsieh III, MD [facility] DEPT OF SURGERY - NEUROSURGERY [address] [place] [address] Consulting Physician UROLOGY 01/22/21 11/22/22 Noemi Huynh MD [address] [place] [address] OTOLARYNGOLOGY 01/22/21 11/22/22 Mario Salazar MD [address] [place] [phone] UROLOGY 11/23/22 Marti Arreola RN Registered Nurse CARE MANAGEMENT 01/29/25 02/26/25 documented as of this encounter
--- OUTSIDE RECORDS SUMMARY | 2025-04-15 07:27 | XMS_ITS | Encounter Summary ---
Author Organization [facility] Address [address] [place] [address] Care Team Providers Care Magician/Illusionist Name Role Phone Eran Masterson MD Primary Care Provider [phone] Yvonne Mosqueda MD Unavailable [facility] Unavailable Unavail able Hailee Watts MD Unavailable [phone] Loni Ang MD Unavailable Monica Gauthier MD, Devin Unavailable [phone] Jori MATHIAS MD, Courtney Unavailable [phone] Noemi Huynh MD Unavailable Mario Salazar MD Unavailable [phone] Marti Arreola RN Unavailable Unavailable Encounter Details Date Type Department Care Team (Late st Contact Info) Description 12/11/2017 Abstract [facility] [address] [place] [address] , Leeanna Chavarria MD Social History Tobacco Use Types Packs/Day Years Used Date Smoking Tobacco: Former Smokeless Tobacco: Former Chew Comments:Past smoker, regina hooper uses smokeless tobacco ([place]). Alcohol Use Standard Drinks/Week Comments No 0 [...] 06/27/2025 2:30 AM CDT Allied Health/Nurse Visit [facility] [address] [place] [address] Yvonne Mosqueda MD [address] [place] [address] documented as of this encounter [...] Rule Out 08/23/2021 08/23/2021 08/23/2021 7:52 PM USER INTERFACE ENGINEER COVID-19 Rule Out 10/04/2021 10/04/2021 10/04/2021 8:30 PM USER INTERFACE ENGINEER COVID-19 Rule Out 11/08/2021 11/08/2021 11/08/2021 6:51 PM USER INTERFACE ENGINEER COVID-19 Rule Out 12/13/2021 12/13/2021 12/13/2021 7:13 PM CDT COVID-19 Rule Out 12/30/2021 12/30/2021 12/30/2021 8:06 PM CDT COVID-19 Rule Out 06/21/2022 06/21/2022 06/21/2022 9:41 PM CDT documented as of this encounter Care Teams Magician/Illusionist Relationship Specialty Start Date End Date Eran Masterson MD [address] [facility] [place] [address] PCP - General FAMILY PRACTICE 07/03/16 Yvonne Mosqueda MD [address] [place] [address] CLINICAL CARDIAC ELECTROPHYSIOLOGY 07/03/16 Sohail Stafford MD [address] [place] [address] CARDIOVASCULAR DISEASE 11/03/16 11/12/24 Hailee Watts MD [address] [place], [place] [address] ENDOCRINOLOGY 09/13/19 05/18/22 Loni Ang MD [address] [place], [place] [address] INTERNAL MEDICINE 09/13/19 11/25/20 Oscar Anderson MD [facility] - NEUROSURGERY [address] [place], [place] [address] NEUROLOGICAL SURGERY 11/26/20 11/22/22 Theresa Hsieh III, MD [facility] - NEUROSURGERY [address] [place], [place] [address] Consulting Physician UROLOGY 01/22/21 11/22/22 Noemi Huynh MD [address] [place] [address] OTOLARYNGOLOGY 01/22/21 11/22/22 Mario Salazar MD [address] [phone] UROLOGY 11/23/22 Marti Arreola RN Registered Nurse CARE MANAGEMENT 01/29/25 02/26/25 documented as of this encounter
--- OUTSIDE RECORDS SUMMARY | 2025-04-15 07:27 | XMS_ITS | Clinical Summary ---
Author Organization [facility] Address [address] [place] [address] Care Team Providers Care Burn Nurse Name Role Phone Eran Peña MD Primary Care Provider [phone] Yvonne Mosqueda MD Unavailable Rosario Galvan MD Unavailable [phone] Allergies Active Allergy Reactions Criticality Noted Date Comments Cefazolin Rash Low 06/12/2016 Cephalosporins Unknown 11/29/2020 Tolerates Augmentin and zosyn Medications nystatin cream Apply topically 2 (two) times daily as needed for Dry skin. Active gabapentin (NEURONTIN) 600 MG tablet Take 1 tablet (600 mg total) by mouth 2 (two) times daily. Active carvedilol 12.5 MG tablet Take 1 tablet (12.5 mg total) by mouth 2 (two) times daily. 60 tablet 6 1 Active aspirin 81 MG chewable tablet Chew 1 tablet (81 mg total) by mouth daily. Active atorvastatin (LIPITOR) 20 MG tablet Take 1 tablet (20 mg total) by mouth nightly at bedtime. Active levothyroxine (SYNTHROID) 25 MCG tablet Take 2 tablets (50 mcg total) by mouth daily. 3 Active omeprazole (PRILOSEC) 40 MG capsule Take 1 capsule (40 mg total) by mouth daily. 4 Active citalopram (CELEXA) 40 MG tablet Take 1 tablet (40 mg total) by mouth daily. Active furosemide (LASIX) 40 MG tablet Take 2 tablets (80 mg total) by mouth daily. Active QUEtiapine (SEROQUEL) 25 MG tablet Take 0.5 tablets (12.5 mg total) by mouth nightly at bedtime. Active vitamin D3 (CHOLECALCIFERO L) 25 mcg tablet Take 1 tablet (25 mcg total) by mouth daily. Active insulin glargine (LANTUS) 100 UNIT/ML injection (PEN) Inject 25 Units into the skin nightly at bedtime. Active magnesium oxide (MAG-OX) 400 (240 Mg) MG tablet Take 1 tablet (400 mg total) by mouth daily. Active methocarbamol (ROBAXIN) 500 MG tablet Take 2 tablets (1,000 mg total) by mouth 4 (four) times daily. Active nystatin (MYCOSTATIN) powder Apply topically 2 (two) times daily. Active betamethasone valerate cream (VALISONE) 0.1 % cream Apply topically 2 (two) times daily. Active artificial tears (LUBRIFRESH PM) 83-15 % ophthalmic ointment Place into both eyes as needed. Active hydrOXYzine (VISTARIL) 25 MG capsule Take 1 capsule (25 mg total) by mouth every 6 (six) hours as needed for Itching. Active potassium chloride CR (KLOR-CON M) 20 MEQ tablet Take 2 tablets (40 mEq total) by mouth daily. 90 tablet 3 Active Active Problems Problem Noted Date Diagnosed Date Acute on chronic renal insufficiency 01/29/2025 Hypokalemia 01/28/2025 Falls frequently 01/28/2025 Benign prostatic hyperplasia 11/10/2024 Dementia 11/10/2024 Depression 11/10/2024 Diabetic neuropathy ([facility]) 11/10/2024 Diabetic retinopathy associa duglas with type 2 diabetes mellitus ([facility]) 11/10/2024 Bryon hematuria 11/10/2024 Gastroesophageal reflux disease 11/10/2024 Renal cell carcinoma ([facility]) Type 2 diabetes mellitus ([facility]) 11/10 Overview (11/10/2024): Jun 04, 2020 Entered By: YONNY MANTILLA Comment: no longer on insulin or pills after losing 125# Vitamin D deficiency 11/10/2024 Carcinoma of prostate ([facility]) 03/01/20 24 Renal mass 04/16/2023 Right kidney mass 01/18/2023 Malignant neoplasm of colon, unspecified part of colon ([facility]) 10/06/2022 Severe sepsis ([facility]) 06/21/2022 GI bleed 06/21/2022 Presence of Amulet left atrial appendage closure device 01/03/2022 Fecal occult blood test positive 09/09/2021 Acute posterior epistaxis 04/24/2021 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 02/14/2021 Coronary artery disease invo lving [place] coronary artery of [place] heart without angina pectoris 02/07/2021 Other retention of urine 12/11/2020 Overview (12/11/2020): Added automatically from request for surgery [id number] Atrial flutter ([facility]) 11/14/2019 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 ([facility]) 07/09/2019 Secondary male hypogonadism 07/09/2019 Biventricular cardiac pacemaker in situ 09/17/20 17 2nd degree atrioventricular block 08/27/2016 Persistent atrial fibrillation ([facility]) 08/11/2016 Sinus node dysfunction ([facility]) 016 Muscle weakness 12/27/2012 Hypertension Hyperlipidemia Stage 3 chronic kidney disease Heart failure with preserved ejection fraction ([facility]) Resolved Problems Problem Noted Date Diagnosed Date Resolved Date Fall 01/28/2025 01/28/2025 Overview (01/28/2025): Patient has fallen multiple times recently. Family concerned regarding safety at home. 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/19/2022 11/10/2024 Symptomatic anemia 09/08/2021 rn long term care current use of antiarrhythmic drug 6 11/10/2024 Chronic anticoagulation 07/03/201610/28 Nonischemic cardiomyopathy ([facility] HHS/HCC) 12/17/2017 Diastolic heart failure ([facility]) 12/17/2017 Encounters Date Type Department Care Team Description 02/28/2025 1:15 AM CDT [facility] [address] [place] [address] Yvonne Mosqueda MD 02/27/2025 Patient Outreach [address] [phone] Marti Arreola RN Hospital Follow Up (Discharge to [facility] 02/02/2025 from [facility]) 02/27/2025 Patient Outreach [address] [phone] Marti Arreola RN Hospital Follow Up (Discharge SFL 02/02/2025. Client currently in Rehab.) 02/14/2025 Patient Outreach [address] [phone] Marti Arreola RN 02/13/2025 Patient Outreach [address] [phone] Marti Arreola RN 02/06/2025 Patient Outreach [address] [address] Marti Arreola, [facility] (Discharged to [facility] 02/02/25. Weekly contact with rehab facility for update.) 02/05/2025 Patient Outreach [address] [address] Tonia Lora, RN TCM (TCM SFL 01/28/25-02/02/25) 01/29/2025 Patient Outreach [address] [address] Marti Arreola, KRISHAN Hospital Follow Up ([facility] admission notification) 01/28/2025 1:10 AM CDT - 02/02/2025 11:56 AM CDT Hospital Encounter [facility] [address] [place] [address] Rosario Yanez DO Wujek, Eran Bland MD Fall Discharge Disposition: [facility] Facility 01/28/2025 Travel from Last 3 Months Immunizations Immunization Administration Dates Next Due Influenza Adult (Generic) 07/22/2021,,08/23/2019,2017,09/10/2017 PFIZER COVID-19 (ORIGINAL FORMULATION, PURPLE CAP) mRNA, LNP-S, PF, 30 MCG/0.3 ML DOSE 07/31/2021,11/20/2020,2020 Td, Adsorbed, Preservative F ree, Adult Use, Lf Unspecified 04/01/2020 Tdap (Boostrix) 04/29/2022 Family History Medical History Relation Comments Diabetes Brother Heart Disease Father Hypertension Father [place] Father Heart Disease Mother Hypertension Mother [place] Mother Coronary artery disease Other Relation Status Comments Brother Father Maternal Grandfather Maternal Grandmother Mother Other Other Positive for pre mature coronary artery disease Paternal Grandfather Paternal Grandmother Social History Tobacco Use Types Packs/Day Years Used Date Smoking Tobacco: Former Cigarettes 3 3 1 11/09/1962 - 09/08/1966 Smokeless Tobacco: Former Chew Quit: 09/08/1963 Tobacco Cessation:Counseling Given: Not Answered Alcohol Use Standard Drinks/Week Comments No 0 (1 standard drink = 0.6 oz pur e alcohol) B1300 Health Literacy Answer Date Recor ded How often do you need to hav e someone help you when you read instructions, pamphlets, or other written material from your doctor or pharmacy? Often 01/28/2025 [facility] Utilities Answer Date Recorded In the past 12 months has e [employer], gas, oil, or water Cynny threatened to shut off services in your home? No 01/28/2025 Humiliation, Afraid, Rape, and Kick questionnair e Answer Date Recorded Within the last year, have y ou been afraid of your partner or ex-partner? No 01/28/2025 Within the last year, have y ou been humiliated or emotionally abused in other ways by your partner or ex-partner? No Within the last year, have y ou been kicked, hit, slapped, or otherwise physically hurt by your partner or ex-partner? No 01/28/2025 Within the last year, have y ou been raped or forced to have any kind of sexual activity by your partner or ex-partner? No 01/28/2025 Social Connection and Isolation Panel [NHANES] A nswer Date Recorded In a typical week, how many times do you talk on the phone with family, friends, or neighbors? Once a week 01/28/2025 How often do you get together with friends or re latives? Once a week 01/28/2025 How often do you attend mandaen or shinto serv ices? Never 01/28/2025 Do you belong to any clubs o r organizations such as mandaen groups, unions, fraternal or athletic groups, or school groups? No 01/28/2025 How often do you attend meet ings of the clubs or organizations you belong to? Never 01/28/2025 Are you , , di vorced, , never , or living with a partner? 01/28/2025 AUDIT-C Answer Date Recorded Q1: How often do you have a drink containing alcohol? Never 01/28/2025 Q2: How many drinks containi ng alcohol do you have on a typical day when you are drinking? Patient does not drink Q3: How often do you have si x or more drinks on one occasion? Never 01/28/2025 Overall Financial Resource Strain (CARDIA) Answe r Date Recorded How hard is it for you to pa y for the very basics like food, housing, medical care, and heating? Not hard at all 01/28/2025 PHQ-2 Answer Date Recorded PHQ-2 Score - If the patient scores above 3, please move on to questions 3-9 0 02/18/2022 [facility] [place] of Occupat ional Health - Occupational Stress Questionnaire Answer Date Recorded Do you feel stress - tense, restless, nervous, or anxious, or unable to sleep at night because your mind is troubled all the time - these days? To some extent 01/28/2025 Exercise Vital Sign Answer Date Recorde d On average, how many days pe r week do you engage in moderate to strenuous exercise (like a brisk walk)? 0 days 01/28/2025 On average, how many minutes do you engage in exercise at this level? 0 min 01/28/2025 Hunger Vital Sign Answer Date Recorded Within the past 12 months, y ou worried that your food would run out before you got the money to buy more. Never true 01/29/20 25 Within the past 12 months, t he food you bought just didn't last and you didn't have money to get more. Never true 01/28/2025 PRAPARE - Transportation Answer Date Re corded In the past 12 months, has l ack of transportation kept you from medical appointments or from getting medications? No 12/2024 In the past 12 months, has l ack of transportation kept you from meetings, work, or from getting things needed for daily living? No 01/28/2025 Housing Stability Vital Sign Answer Lb e Recorded In the last 12 months, was t here a time when you were not able to pay the mortgage or rent on time? No 04/17/2023 In the last 12 months, how many places have you lived? 1 04/17/2023 In the last 12 months, was t here a time when you did not have a steady place to sleep or slept in a nursing home (including now)? No 04/17/2023 Housing Stability Vital Sign Answer Lb e Recorded In the last 12 months, was t here a time when you were not able to pay the mortgage or rent on time? No 01/28/2025 In the past 12 months, how m any times have you moved where you were living? 1 01/28/2025 At any time in the past 12 m [place], were you homeless or living in a nursing home (including now)? No 01/28/2025 Education Answer Date Recorded What is the [...] file Not on file Not on file Last Filed Vital Signs Vital Sign Reading Time Taken Comments Blood Pressure 126/67 02/02/2025 9:03 AM CDT Pulse 70 02/02/2025 9:03 AM CDT Temperature 35.2 C (95.3 F) 02/02/2025 5:00 AM CDT Respiratory Rate 18 02/02/2025 9:03 AM CDT Oxygen Saturation 95% 02/02/2025 9:03 AM CDT Inhaled Oxygen Concentration - - Weight 95.4 kg (210 lb 6.4 oz) 02/02/2025 5:00 A M CDT Height 165.1 cm (5' 5) 01/28/2025 1:41 AM CDT Body Mass Index 35.01 01/28/2025 1:41 AM CDT Plan of Treatment Upcoming Encounters Date Type Department Care Team (Late st Contact Info) Description 06/27/2025 2:30 AM CDT Allied Health/Nurse Visit [facility] [address] [place] [phone] Yvonne Mosqueda MD [address] [place] [phone] Health Maintenance Due Date Last Done Comments ASCVD LDL 1944 ASCVD Statin 1944 Kidney Health Evaluation 1944 Lipid Panel 1944 Diabetes: Retinopathy Eye Exam 1962 Annual Medicare Wellness Visit 2009 RSV Immunization or 60+ Years (1 - 1-dose 75+ series) 2019 Hemoglobin A1C 12/22/2022 06/24/2022, 06/0 11/2021, 10/12/2019, Additional history exists COVID-19 Vaccine ( season) 2024 07/23/2022, 07/31/2021, 11/20/2020, Additional history exists PHQ-2 (Physician [place]) 09/27/2024 DTaP, Tdap and Td Vaccines (4 - Td or Tdap) 04/29/2032 04/29/2022, 04/01/2020, 01/07/2016, Additional history exists Pneumococcal Vaccine: 50+ Years Completed 09/03/2021, 06/12/2016, 05/28/2002 Zoster Vaccines Completed 02/04/2022, 04/2021, 05/03/2012 AAA SCREENING Completed 10/01/2022, 11/2021, 06/21/2022, Additional history exists Colorectal Cancer Screening Colonoscopy (10 Years) Discontinued 07/14/2023, 07/14/2023, 06/26/2022, Additional history exists Meningococcal B Vaccine Aged Out No l onger eligible based on patient's age to complete this topic Meningococcal Vaccine Aged Out No gurmeet leandro eligible based on patient's age to complete this topic RSV Immunizations Under 20 Months Aged Out No longer eligible based on patient's age to complete this topic Goals Goal Patient Goal Type Associated Problems Recent Progress Patient-Stated? Author Medications - able to self-administer medications General Marita Hanks RN Health - patient able to perform ADLs independently General Marita Hanks RN Patient will return to prior living situation and remain independent in ADLs upon discharge from hospital General Marita Hanks RN Family - family caregiver with be involved in care transitions and discharge planning Lifestyle Malinda Babin RN Family - family caregiver with be involved in care transitions and discharge planning Lifestyle No Malinda Barillas RN Medical Devices Implanted Type Area Open Claims Representative Device Identifier Shelf Expiration Date Model / Serial / Lot Barakat Amplatzer Amulet Left Atrial Appendage Occluder- [id number] Implanted:04/2022 by Yvonne Mosqueda MD (Quantity not on file) Closure Device Heart [employer] 06/26/2026 [id number] / / [id number] St Brad Dual Chamber Pacemaker Implanted:06/29 by Yvonne Mosqueda MD (Quantity not on file) Pacemaker [facility] [employer] - DIV [employer] BRAD [id number] / [id number] / Barakat Quadra Allure Biv Ppm-06/21/2024 Implanted:05/29 by Yvonne Mosqueda MD (Quantity not on file) Pacemaker BARAKAT PACER 09/26/2025 [id number] / [id number] / Agent Hemostatic Surgiflo 8 Ml Kit - [id number] Implanted:Qty: 1 on 04/16/2023 by Rosario Galvan MD at [facility] Sealant Right: Kidney [employer] 05/27/2024 [id number] / / [id number] Right Ventricular Lead Replacement- Implanted:07/29 by Yvonne Mosqueda MD (Quantity not on file) Explanted Type Area Open Claims Representative Device Identifier Shelf Expiration Date Model / Serial / Lot St Brad Bi-Ventricular Pacemaker- 016 Implanted:2015 by Yvonne Mosqueda MD (Quantity not on file) Explanted:2023 by Yvonne Mosqueda MD (Quantity not on file) Procedures Procedure Name Priority Date/Time Associated Diagnosis Comments XR CHEST PORTABLE STAT 02/02/2025 8:1 4 AM CDT COMPREHENSIVE METABOLIC PANEL Routine 02/02/2025 5:39 AM CDT CBC W/DIFF AUTOMATED Routine 02/02/2025 5:39 AM CDT MAGNESIUM Routine 02/02/2025 5:39 AM CDT CBC W/DIFF AUTOMATED Routine 02/01/2025 4:40 AM CDT BASIC METABOLIC PANEL Routine 02/01/2025 4:40 AM CDT CBC W/DIFF AUTOMATED Routine 01/31/2025 4:56 AM CDT BASIC METABOLIC PANEL Routine 01/31/2025 4:56 AM CDT MAGNESIUM Routine 01/30/2025 5:17 AM CDT BASIC METABOLIC PANEL Routine 01/30/2025 5:17 AM CDT CBC W/DIFF AUTOMATED Routine 01/30/2025 5:17 AM CDT CBC W/DIFF AUTOMATED Routine 01/29/2025 8:26 AM CDT BASIC METABOLIC PANEL Routine 01/29/2025 8:26 AM CDT ECG 12-LEAD STAT 01/28/2025 1:38 PM CDT BASIC METABOLIC PANEL STAT 01/28/2025 7:10 AM CDT CBC W/DIFF AUTOMATED STAT 01/28/2025 7:10 AM CDT ECG 12-LEAD STAT 01/28/2025 2:[address] HEAD WO CON STAT 01/28/2025 2:19 AM CDT XR CHEST PORTABLE STAT 01/28/2025 2:1 9 AM CDT HC URINALYSIS AUTO W/MICRO STAT 01/28/2025 2:05 AM CDT CBC W/DIFF AUTOMATED STAT 01/28/2025 1:53 AM CDT BETA-HYDROXYBUTYRATE STAT 01/28/2025 1:34 AM CDT TROPONIN, QUANT STAT 01/28/2025 1:28 AM CDT COMPREHENSIVE METABOLIC PANEL STAT 01/28/2025 1:28 AM CDT COLONOSCOPY Routine 07/14/2023 11:[address] ABD+PEL WWO CON Routine 10/01/2022 2: 31 PM [employer] Hematuria, microscopic HEMOGLOBIN, GLYCOSYLATED Routine 06/24/2022 9:18 AM CDT from Last 3 Months or Most Recently Relevant to Health Maintenance Results * XR CHEST PORTABLE (02/02/2025 8:14 AM CDT) Only the most recent of2 resultswithin the time period is included. Anatomical Region Laterality Modality Chest Radiographic Dede ging 02/02/2025 8:18 AM CDT Impressions 02/02/2025 8:19 AM CDT IMPRESSION: No acute findings Ordered By: ERAN PEÑA Interpreted By: Niels Mcdonald MD, 02/02/2025 8:18 AM Narrative 02/02/2025 8:19 AM CDT [address] [place] [address] SINGLE VIEW OF THE CHEST Clinical history: Possible aspiration Comparison: January 28, 2025 A single view of the chest demonstrates the cardiac silhouette to be stable in size and appearance. A multilead pacemaker stable from a left-sided approach. The pulmonary vessels appear normal. The Lungs are clear. No consolidations or effusions are seen. Procedure Note Niels Mcdonald MD - 02/02/[address] [place] [address] SINGLE VIEW OF THE CHEST Clinical history: Possible aspiration Comparison: January 28, 2025 A single view of the chest demonstrates the cardiac silhouette to bestable in size and appearance. A multilead pacemaker stable from aleft-sided approach. The pulmonary vessels appear normal. The Lungs areclear. No consolidations or effusions are seen. IMPRESSION: No acute findings Ordered By: ERAN PEÑA Interpreted By: Niels Mcdonald MD, 02/02/2025 8:18 AM us Eran Peña MD GENERAL IMAGING Final Result * (ABNORMAL) COMPREHENSIVE METABOLIC PANEL (02/02/2025 5:39 AM CDT) Only the most recent of2 resultswithin the time period is included. SODIUM S/P/B 137 136 - 145 MMOL/L 02/02/2025 6:19 AM CDT [facility] POTASSIUM S/P/B 3.4(L) 3.5 - 5.1 MMOL/L 02/02/2025 6:19 AM [facility] CHLORIDE S/P/B 98 98 - 107 MMOL/L 02/02/2025 6:19 AM [facility] CO2 34.4(H) 21.0 - 32.0 MMOL/L 02/02/2025 6:19 AM [facility] GLUCOSE 186(H) 70 - 99 MG/DL 02/02/2025 6:19 AM [facility] Comment: FASTING GLUCOSE 100 TO 125 MG/DL IS CONSISTENT WITH IMPAIRED FASTING GLUCOSE. FASTING GLUCOSE >125 MG/DL IS CONSISTENT WITH DIABETES. RANDOM GLUCOSE >200 MG/DL WITH HYPERGLYCEMIC SYMPTOMS IS CONSISTENT WITH DIABETES. PER ADA GUIDELINES BUN 50(H) 6 - 24 MG/DL 02/02/2025 6:19 AM [facility] CREATININE S/P/B 2.52(H) 0.70 - 1.30 MG/DL 02/02/2025 6:19 AM [facility] CALCIUM S/P/B 9.0 8.4 - 10.5 MG/DL 02/02/2025 6:19 AM [facility] BILIRUBIN TOTAL S/P/B 0.5 0.2 - 1.0 MG/DL 02/02/2025 6:19 AM [facility] Comment: THIS ASSAY IS NOT RECOMMENDED FOR PATIENTS UNDERGOING TREATMENT WITH ELTROMBOPAG DUE TO THE POTENTIAL FOR FALSELY ELEVATED RESULTS. ALKALINE PHOSPHATASE S/P/B 119(H) 45 - 115 U/L 02/02/2025 6:19 AM [facility] AST 30 15 - 37 U/L 02/02/2025 6:19 AM [facility] ALT 20 16 - 63 U/L 02/02/2025 6:19 AM [facility] TOTAL PROTEIN S/P/B 6.8 6.4 - 8.2 G/DL 02/02/2025 6:19 AM [facility] ALBUMIN S/P/B 3.1(L) 3.4 - 5.0 G/DL 02/02/2025 6:19 AM CDT [facility] ANION GAP 4.6(L) 5.0 - 15.0 MMOL/L 02/02/2025 6:19 AM CDT [facility] OSMOLALITY (CALC) 302 MOSM/KG 025 6:19 AM CDT [facility] Comment:REFERENCE RANGE NOT ESTABLISHED GFR ESTIMATE 25(L) >89 ML/MIN/1. 73 M2 02/02/2025 6:19 AM CDT [facility] GFR NOTES GFR REFERENCE S: 02/02/2025 6:19 AM CDT [facility] Comment: THE ESTIMATED GFR IS CALCULATED USING THE 2020 CKD-EPI EQUATION. THE FOLLOWING CATEGORIES FOR GRADING RENAL FUNCTION ARE RECOMMENDED BY THE INTERNATIONAL SOCIETY OF NEPHROLOGY (KDIGO 2012 CLINICAL PRACTICE GUIDELINE). G1,NORMAL OR HIGH: >89 ml/min/1.73 m2 G2,MILDLY DECREASED: 60-89 ml/min/1.73 m2 G3A,MILDLY TO MODERATELY DECREASED: 45-59 ml/min/1.73 m2 G3B,MODERATELY TO SEVERELY DECREASED: 30-44 ml/min/1.73 m2 G4,SEVERELY DECREASED: 15-29 ml/min/1.73 m2 G5,KIDNEY FAILURE: <15 ml/min/1.73 m2 02/02/2025 5:39 AM CDT Eran Peña MD LABORATORY Final Result [facility] [address] [place] [address], * (ABNORMAL) CBC W/DIFF AUTOMATED (02/02/2025 5:39 AM CDT) Only the most recent of7 resultswithin the time period is included. WBC 6.71 4.00 - 10.80 x10'3/uL 02/02/2025 6:03 AM CDT [facility] RBC 4.06(L) 4.50 - 6.10 x10'6/uL 02/02/2025 6:03 AM CDT [facility] HGB 11.6(L) 13.0 - 18.0 G/DL 02/02/2025 6:03 AM CDT [facility] HCT 35.0(L) 37.0 - 52.0 % 02/02/2025 6:03 AM CDT [facility] MCV 86.2 78.0 - 100.0 FL 02/02/2025 6:03 AM CDT [facility] MCH 28.6 27.0 - 31.0 PG 02/02/2025 6:03 AM CDT [facility] MCHC 33.1 33.0 - 36.0 G/DL 02/02/2025 6:03 AM CDT [facility] RDW 13.0 11.5 - 14.5 % 02/02/2025 6:03 AM CDT [facility] PLT 227 150 - 350 x10'3/uL 02/02/2025 6:03 AM CDT [facility] MPV 10.2 7.4 - 10.4 FL 02/02/2025 6:03 AM CDT [facility] CBC COMMENT NORMAL REFERENCE RANGE NOT ESTABLISHED FOR THE PROPORTIONAL LEUKOCYTE DIFFERENTIAL. 02/02/2025 6:03 AM CDT [facility] NEUTROPHILS % 57.7 % 02/02/2025 6:03 AM CDT [facility] LYMPHOCYTES % 25.5 % 02/02/2025 6:03 AM CDT [facility] MONOCYTES % 9.1 % 02/02/2025 6:03 AM CDT [facility] EOSINOPHILS % 5.5 % 02/02/2025 6:03 AM CDT [facility] BASOPHILS % 1.0 % 02/02/2025 6:03 AM CDT [facility] IMMATURE GRANS % 1.2 % 02/03/20 6:03 AM CDT [facility] NRBC % 0.0 % 02/02/2025 6:03 AM CDT [facility] ABS. NEUTROPHILS 3.87 1.60 - 8.30 x10'3/uL 02/02/2025 6:03 AM CDT [facility] ABS. LYMPHOCYTES 1.71 0.80 - 4.70 x10'3/uL 02/02/2025 6:03 AM CDT [facility] ABS. MONOCYTES 0.61 0.00 - 1.50 x10'3/uL 02/02/2025 6:03 AM CDT [facility] ABS. EOSINOPHILS 0.37 0.00 - 0.40 x10'3/uL 02/02/2025 6:03 AM CDT [facility] ABS. BASOPHILS 0.07 0.00 - 0.20 x10'3/uL 02/02/2025 6:03 AM CDT [facility] ABS. IMMATURE GRANULOCYTES 0.08(H) 0.00 - 0.03 x10'3/uL 02/02/2025 6:03 AM CDT [facility] ABS. NUCLEATED RBC'S 0.00 0.00 - 0.01 x10'3/uL 02/02/2025 6:03 AM CDT [facility] 02/02/2025 5:3 9 AM CDT us Eran Peña MD LABORATORY Final Result Performing Organization Address City/[facility]/[place]IP [place] [address], * (ABNORMAL) MAGNESIUM (02/02/2025 5:39 AM CDT) Only the most recent of2 resultswithin the time period is included. MAGNESIUM 1.7(L) 1.8 - 2.4 MG/DL 02/02/2025 6:19 AM CDT [facility] 02/02/2025 5:39 AM CDT us Eran Peña MD LABORATORY Final Result Performing Organization Address City/[facility]/ZIP Co de Phone Number [facility] [place] [address], [place] [phone] * (ABNORMAL) BASIC METABOLIC PANEL (02/01/2025 4:40 AM CDT) Only the most recent of5 resultswithin the time period is included. SODIUM S/P/B 136 136 - 145 MMOL/L 02/01/2025 5:32 AM CDT [facility] POTASSIUM S/P/B 3.6 3.5 - 5.1 MMOL/L 02/01/2025 5:32 AM CDT [facility] Comment:SLIGHT HEMOLYSIS, RE SULT MAY BE AFFECTED. CHLORIDE S/P/B 96(L) 98 - 107 MMOL/L 02/01/2025 5:32 AM CDT [facility] CO2 34.2(H) 21.0 - 32.0 MMOL/L 02/01/2025 5:32 AM CDT [facility] GLUCOSE 169(H) 70 - 99 MG/DL 02/01/2025 5:32 AM T [facility] Comment: FASTING GLUCOSE 100 TO 125 MG/DL IS CONSISTENT WITH IMPAIRED FASTING GLUCOSE. FASTING GLUCOSE >125 MG/DL IS CONSISTENT WITH DIABETES. RANDOM GLUCOSE >200 MG/DL WITH HYPERGLYCEMIC SYMPTOMS IS CONSISTENT WITH DIABETES. PER ADA GUIDELINES BUN 47(H) 6 - 24 MG/DL 02/01/2025 5:32 AM CDT [facility] CREATININE S/P/B 2.38(H) 0.70 - 1.30 MG/DL 02/01/2025 5:32 AM CDT [facility] CALCIUM S/P/B 9.5 8.4 - 10.5 MG/DL 02/01/2025 5:32 AM T [facility] ANION GAP 5.8 5.0 - 15.0 MMOL/L 02/01/2025 5:32 AM T [facility] OSMOLALITY (CALC) 298 MOSM/KG 025 5:32 AM T [facility] Comment:REFERENCE RANGE NOT ESTABLISHED GFR ESTIMATE 27(L) >89 ML/MIN/1. 73 M2 02/01/2025 5:32 AM CDT [facility] GFR NOTES GFR REFERENCE S: 02/01/2025 5:32 AM CDT [facility] Comment: THE ESTIMATED GFR IS CALCULATED USING THE 2020 CKD-EPI EQUATION. THE FOLLOWING CATEGORIES FOR GRADING RENAL FUNCTION ARE RECOMMENDED BY THE INTERNATIONAL SOCIETY OF NEPHROLOGY (KDIGO 2012 CLINICAL PRACTICE GUIDELINE). G1,NORMAL OR HIGH: >89 ml/min/1.73 m2 G2,MILDLY DECREASED: 60-89 ml/min/1.73 m2 G3A,MILDLY TO MODERATELY DECREASED: 45-59 ml/min/1.73 m2 G3B,MODERATELY TO SEVERELY DECREASED: 30-44 ml/min/1.73 m2 G4,SEVERELY DECREASED: 15-29 ml/min/1.73 m2 G5,KIDNEY FAILURE: <15 ml/min/1.73 m2 02/01/2025 4:40 AM CDT us Eran Peña MD LABORATORY Final Result Performing Organization Address City/State/[facility] Co de Phone Number [facility] [address] [place], [place] [id number], * ECG 12 lead (01/28/2025 1:38 PM CDT) Only the most recent of2 resultswithin the time period is included. 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 Analyst: : 1945 Requested By: ERAN PEÑA Order Number: [id number] Reading MD: Bob Perez Measurements Intervals Burket Rate: 95 P: 121 ID: 164 QRS: 115 QRSD: 183 T: -32 QT: 399 QTc: 502 Interpretive Statements ELECTRONIC VENTRICULAR PACEMAKER ABNORMAL ECG Procedure Note Bob Perez MD - 05/06/[address] [place] [address] Test Date: 2025-01-28 Pat Name: JIA CHIN Department: 3 Room: [facility] Gender: Male 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 No acute intracranial abnormality. 2. Prominent atrophy and moderate small vessel ischemic disease. Superimposed acute infarct not excluded. 3. Right maxillary mucosal sinus disease 4. Anterior right scalp contusion Referred By: Interpreted By: Mike Boss MD, 01/28/2025 2:27 AM Narrative 01/28/2025 2:29 AM CDT [address] [place] [address] EXAMINATION: CT of the head EXAM DATE/TIME: 01/28/2025 2:19 AM REASON FOR EXAM: fall R forhead cotnusion Increasing falls over the past couple weeks most recently today COMPARISON: Head CT 12/10/2024 TECHNIQUE: Axial CT images of the brain are obtained from skull base through vertex without the use of IV contrast agent. A dose lowering technique was used for this procedure, which may include, but is not limited to, dose reduction technique, automated exposure control, iterative reconstruction, ALARA (As Low As Reasonably Achievable), or Image Gently techniques. FINDINGS: No acute hemorrhage or large territory infarct. Ventricles are significantly enlarged with prominent bilateral sulci indicated extensive diffuse symmetric parenchymal volume loss. There are scattered areas of hypodensities in the periventricular deep white matter which are nonspecific but likely secondary to moderate small vessel ischemic disease. There are no extra-axial fluid collections. There is no mass, mass effect, or midline shift. There is no depressed skull fracture. Visualized paranasal sinuses show near complete opacification of the right maxillary sinus. Remainder paranasal sinuses grossly clear. Prior uncinectomy and partial ethmoidectomy. Visualized orbital contents show bilateral lens extractions and are otherwise unremarkable. Anterior right scalp contusion.. ===== Procedure Note Mike Boss MD - 01/28/[address] [place] [address] EXAMINATION: CT of the head EXAM DATE/TIME: 01/28/2025 2:19 AM REASON FOR EXAM: fall R forhead cotnusion Increasing falls over the past couple weeks most recently today COMPARISON: Head CT 12/10/2024 TECHNIQUE: Axial CT images of the brain are obtained from skull basethrough vertex without the use of IV contrast agent. A dose loweringtechnique was used for this procedure, which may include, but is notlimited to, dose reduction technique, automated exposure control,iterative reconstruction, ALARA (As Low As Reasonably Achievable), orImage Gently techniques. FINDINGS: No acute hemorrhage or large territory infarct. Ventricles aresignificantly enlarged with prominent bilateral sulci indicated extensivediffuse symmetric parenchymal volume loss. There are scattered areas ofhypodensities in the periventricular deep white matter which arenonspecific but likely secondary to moderate small vessel ischemicdisease. There are no extra-axial fluid collections. There is no mass,mass effect, or midline shift. There is no depressed skull fracture.Visualized paranasal sinuses show near complete opacification of the rightmaxillary sinus. Remainder paranasal sinuses grossly clear. Prioruncinectomy and partial ethmoidectomy. Visualized orbital contents showbilateral lens extractions and are otherwise unremarkable. Anterior rightscalp contusion.. ===== IMPRESSION: ===== 1. No acute intracranial abnormality. 2. Prominent atrophy and moderate small vessel ischemic disease.Superimposed acute infarct not excluded. 3. Right maxillary mucosal sinus disease 4. Anterior right scalp contusion Referred By: Interpreted By: Mike Boss MD, 01/28/2025 2:27 AM Rosario Yanez DO CT Final Result * URINALYSIS (01/28/2025 2:05 AM CDT) COLOR (U) YELLOW 01/28/2025 2:30 AM CDT [facility] TRANSPARENCY CLEAR 01/28/2025 2:30 AM CDT [facility] SPECIFIC GRAVITY (U) 1.010 1.000 - 1.025 01/28/2025 2:30 AM CDT [facility] U PH 6.0 5.0 - 8.0 01/28/2025 2:30 AM CDT [facility] LEUKOCYTES (U) NEGATIVE NEGATIVE 01/28/2025 2:30 AM CDT [facility] NITRITES NEGATIVE NEGATIVE 01/28/2025 2:30 AM CDT [facility] PROTEIN RANDOM (U) NEGATIVE NEGATIVE 01/28/2025 2:30 AM CDT [facility] GLUCOSE (U) NEGATIVE NEGATIVE 01/28/2025 2:30 AM CDT [facility] KETONES MG/DL (U) NEGATIVE NEGATIVE 01/28/2025 2:30 AM CDT [facility] UROBILINOGEN 0.2 <1.0 EU/DL 01/28/2025 2:30 AM CDT [facility] BILIRUBIN (U) NEGATIVE NEGATIVE 01/28/2025 2:30 AM CDT [facility] BLOOD (U) NEGATIVE NEGATIVE 01/28/2025 2:30 AM CDT [facility] WBC/HPF 0-5 0 - 5 /HPF 01/28/2025 2:30 AM CDT [facility] EPI/LPF OCCASIONAL /LPF 01/28/2025 2:30 AM CDT [facility] BACTERIA (U) 1+ /HPF 01/28/2025 2:30 AM CDT [facility] MUCUS PRESENT 01/28/2025 2:30 AM CDT [facility] OTHER CASTS (U) HYALINE /LPF 2:30 AM CDT [facility] Comment:0-5 URINE SPECIMEN OBTAINED BY CLEAN CATCH PROCEDURE / Unknown 01/28/2025 2:05 AM CDT us Rosario Yanez DO URINE ORDERABLES [place] [address], * BETA-HYDROXYBUTYRATE (01/28/2025 1:34 AM CDT) BETA-HYDROXYBUT YRATE 0.2 0.0 - 0.3 MMOL/L 01/28/2025 1:43 AM CDT [facility] 01/28/2025 1:34 AM CDT us Rosario Yaenz DO LABORATORY Final Result Performing Organization Address City/[facility]/ZIP Co de Phone Number [facility] [address] [place] [address], * TROPONIN, QUANT (01/28/2025 1:28 AM CDT) TROPONIN I HIGH SENSITIVITY 12 0 - 76 ng/L 01/28/2025 2:20 AM CDT [facility] 01/28/2025 1:28 AM CDT us Rosario Yanez DO LABORATORY Final Result [facility] [place] [address], * Colonoscopy (07/14/2023 11:45 AM CDT) Bryce Tran [facility] GI PROCEDURE ORDERAB LES Final Result * CT ABD+PEL WWO CON (10/01/2022 2:31 PM [employer]) Anatomical Region Laterality Modality Abdomen Computed Tomogra phy 10/03/2022 10:4 4 AM [employer] Impressions 10/03/2022 10:51 AM [employer] Impression: 1. A 4 cm solid enhancing mass lesion is again seen involving the upper pole of the right kidney. 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 2. No suspicious lymphadenopathy is identified. Referred By: ROSARIO GALVAN Interpreted By: Nolberto Zimmerman MD, 10/03/2022 10:44 AM Narrative 10/03/2022 10:51 AM [employer] Examination: CT ABD+PEL WWO CON Clinical Information: Microscopic hematuria. Comparison:CT 06/21/2022. Technique: IV contrast: 94 mL Isovue 370. Oral contrast: None. Technical comments: Standard urogram technique. Dose reduction: This CT exam was performed using one or more of the following dose reduction techniques: Automated exposure control, adjustment of the mA and/or kV according to patient size, and/or use of iterative reconstruction technique. Findings: LOWER CHEST Heart is normal in size. Lung bases are clear. No pleural or pericardial effusions. UPPER ABDOMEN Liver and bile ducts: No focal liver lesion. Portal vein and hepatic veins are patent. No biliary dilatation. Gallbladder: Surgically absent. Pancreas: Unremarkable. Spleen: Normal in size and contour. RETROPERITONEUM Adrenals: No adrenal mass. Kidneys: No nephrolithiasis, ureteral stones or hydronephrosis. There is a rounded solid enhancing mass lesion with likely central necrosis involving the upper pole the right kidney (series 4 image 62). This appears similar to the previous study from May 2022 and measures 4.0 x 3.8 x 3.7 cm. This is concerning for a primary renal neoplasm. The opacified renal collecting systems and ureters demonstrate no distinct urothelial abnormality. Lymph nodes: No lymphadenopathy in the abdomen or pelvis. BOWEL AND PERITONEUM Bowel: Normal in caliber and wall thickness. Surgical changes of the right colon. Scattered sigmoid diverticula. No inflammatory changes are identified. Free air or fluid: None. 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 PELVIS The urinary bladder is decompressed by Pablo catheter and not well evaluated. BONES/SOFT TISSUES No significant lesion. Procedure Note Nolberto Zimmerman MD - 10/03/2022 Examination: CT ABD+PEL WWO CON Clinical Information: Microscopic hematuria. Comparison:CT 06/21/2022. Technique: IV contrast: 94 mL Isovue 370. Oral contrast: None. Technical comments: Standard urogram technique. Dose reduction: This CT exam was performed using one or more of thefollowing dose reduction techniques: Automated exposure control,adjustment of the mA and/or kV according to patient size, and/or use ofiterative reconstruction technique. Findings: LOWER CHEST Heart is normal in size. Lung bases are clear. No pleural or pericardialeffusions. UPPER ABDOMEN Liver and bile ducts: No focal liver lesion. Portal vein and hepaticveins are patent. No biliary dilatation. Gallbladder: Surgically absent. Pancreas: Unremarkable. Spleen: Normal in size and contour. RETROPERITONEUM Adrenals: No adrenal mass. Kidneys: No nephrolithiasis, ureteral stones or hydronephrosis. There is arounded solid enhancing mass lesion with likely central necrosis involvingthe upper pole the right kidney (series 4 image 62). This appears similarto the previous study from May 2022 and measures 4.0 x 3.8 x 3.7 cm.This is concerning for a primary renal neoplasm. The opacified renalcollecting systems and ureters demonstrate no distinct urothelialabnormality. Lymph nodes: No lymphadenopathy in the abdomen or pelvis. BOWEL AND PERITONEUM Bowel: Normal in caliber and wall thickness. Surgical changes of the rightcolon. Scattered sigmoid diverticula. No inflammatory changes areidentified. Free air or fluid: None. 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 PELVIS The urinary bladder is decompressed by Pablo catheter and not wellevaluated. BONES/SOFT TISSUES No significant lesion. Impression: 1. A 4 cm solid enhancing mass lesion is again seen involving the upperpole of the right kidney. This appears similar to the previous study fromMay 2022 and remains concerning for primary renal neoplasm. 2. No suspicious lymphadenopathy is identified. Referred By: ROSARIO GALVAN Interpreted By: Nolberto Zimmerman MD, 10/03/2022 10:44 AM Rosario Galvan MD CT Final Result * (ABNORMAL) HEMOGLOBIN, GLYCOSYLATED (06/24/2022 9:18 AM CDT) HGB A1C 6.9(H) <5.7 % 06/24/2022 10:57 AM CDT [facility] ESTIMATED AVG GLUCOSE 151(H) 74 - 114 MG/DL 06/24/2022 10:57 AM CDT [facility] 06/24/2022 9:18 AM CDT Dinesh Sharif MD LABORATORY Final Res ult [facility] [address] [place] [address], [id number] from Last 3 Months or Most Recently Relevant to Health Maintenance Additional Health Concerns Infection Onset Date Last Indicated 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 08/20/2017 Insurance [facility] [employer]ET[employer] Advance Directives * DNR (Latest Code Status on File) Date Activated Date Inactivated Comments 01/28/2025 12:35 PM 02/02/2025 2:06 PM * Full Code Date Activated Date Inactivated Comments 04/16/2023 6:51 PM 04/18/2023 2:39 PM * Full Code Date Activated Date Inactivated Comments 06/21/2022 11:13 PM 07/09/2022 3:07 PM * Full Code Date Activated Date Inactivated Comments 05/20/2022 4:29 PM 05/27/2022 4:51 PM * Full Code Date Activated Date Inactivated Comments 05/19/2022 9:10 PM 05/20/2022 4:29 PM Care Teams Burn Nurse Relationship Specialty Start Date End Date Wujek, Eran A, MD [address] [place] [phone] PCP - General FAMILY PRACTICE 07/03/16 Yvonne Mosqueda MD [address] [place] [phone] CLINICAL CARDIAC ELECTROPHYSIOLOGY 07/03/16 Rosario Galvan MD [address] [place] [phone] UROLOGY 11/23/22
--- OUTSIDE RECORDS SUMMARY | 2025-04-15 07:27 | XMS_ITS | Encounter Summary ---
Author Organization [facility] Address [facility] [place] [address] Care Team Providers Care Spare Parts Clerk Name Role Phone Eran Masterson MD Primary Care Provider [phone] Yvonne Mosqueda MD Unavailable Sohail Stafford MD Unavailable Unavail able Hailee Watts MD Unavailable [phone] Loni Ang MD Unavailable Monica Gauthier MD, Devin Unavailable [phone] Jori MATHIAS MD, Courtney Unavailable [phone] Noemi Huynh MD Unavailable Mario Salazar MD Unavailable [phone] Marti Arreola RN Unavailable Unavailable Encounter Details Date Type Department Care Team (Late st Contact Info) Description 03/04/2019 Abstract [facility]FL CONVERSION [address] [place] [address] , Generic Conversion, Social History Tobacco Use Types Packs/Day Years Used Date Smoking Tobacco: Former Smokeless Tobacco: Former Chew Comments:Past smoker, regina hooper uses smokeless tobacco ([place]). Alcohol Use Standard Drinks/Week Comments No 0 [...] 06/27/2025 2:30 AM CDT Allied Health/Nurse Visit [facility] [address] [place] [address] Yvonne Mosqueda MD [address] [place] [address] documented as of this encounter [...] Rule Out 08/23/2021 08/23/2021 08/23/2021 7:52 PM HEEL VARNISHER COVID-19 Rule Out 10/04/2021 10/04/2021 10/04/2021 8:30 PM HEEL VARNISHER COVID-19 Rule Out 11/08/2021 11/08/2021 11/08/2021 6:51 PM HEEL VARNISHER COVID-19 Rule Out 12/13/2021 12/13/2021 12/13/2021 7:13 PM CDT COVID-19 Rule Out 12/30/2021 12/30/2021 12/30/2021 8:06 PM CDT COVID-19 Rule Out 06/21/2022 06/21/2022 06/21/2022 9:41 PM CDT documented as of this encounter Care Teams Spare Parts Clerk Relationship Specialty Start Date End Date Eran Masterson MD [address] [facility] [place] [address] PCP - General FAMILY PRACTICE 07/03/16 Yvonne Mosqueda MD [address] [place] [address] CLINICAL CARDIAC ELECTROPHYSIOLOGY 07/03/16 Sohail Stafford MD [address] [place] [address] CARDIOVASCULAR DISEASE 11/03/16 11/12/24 Hailee Watts MD [address] [place], [place] [address] ENDOCRINOLOGY 09/13/19 05/18/22 Loni Ang MD [address] [place], [place] [phone] INTERNAL MEDICINE 09/13/19 11/25/20 Oscar Anderson MD [facility] - NE[facility]OSURGERY [address] [place], [place] [phone] NEUROLOGICAL SURGERY 11/26/20 11/22/22 Theresa Hsieh III, MD [facility] - NE[facility]OSURGERY [address] [place], [place] [address] Consulting Physician UROLOGY 01/22/21 11/22/22 Noemi Huynh MD [address] [place] [address] OTOLARYNGOLOGY 01/22/21 11/22/22 Mario Salazar MD [address] [address] UROLOGY 11/23/22 Marti Arreola RN Registered Nurse CARE MANAGEMENT 01/29/25 02/26/25 documented as of this encounter
--- OUTSIDE RECORDS SUMMARY | 2025-04-15 07:27 | XMS_ITS | Encounter Summary ---
Author Organization [facility] Address [address] [place] [address] Care Team Providers Care Reel Slitter Name Role Phone Eran Masterson MD Primary Care Provider [phone] Yvonne Mosqueda MD Unavailable [facility] MD Unavailable Unavail able Hailee Watts MD Unavailable [phone] Monica Gauthier MD, Oscar Unavailable [phone] Jori MATHIAS MD, Courtney Unavailable [phone] Noemi Huynh MD Unavailable Mario Salazar MD Unavailable [phone] Marti Arreola RN Unavailable Unavailable Encounter Details Date Type Department Care Team (Late st Contact Info) Description 01/01/2022 Hospital Orders Only [facility] Anesthesia [address] [place] [address] Mimi Roberts Anesthesia Record Procedure Summary Procedure Name Responsible Anesthesiologist Anesthesia Start Time Anesthesia Stop Time XA LEFT ATRIAL APPENDAGE CLOSURE Ling Scott DO 01/02/22 1503 01/02/22 1703 Events Date Time Event Comment 01/02/2022 1209 1209 AN Anesthesia Prepped 1503 An Start Patient ID and consent checked and patient reassessed. 1503 An Start Data 1510 Preoxygenation 1519 An Induction The patient was reevaluated immediately before moderate or deep sedation use and before anesthesia induction. 1523 An Intubation 1530 Anesthesia Ready 1539 an miller now 1617 Quick Note ACT 297 1630 Quick Note ACT 362 1654 An Extubation 1700 an stop data 1703 Post Anesthetic Care Handoff I completed my handoff to the receiving nurse during which we: 1. Identified the patient 2. Identified the responsible provider 3. Reviewed the pertinent medical history 4. Discussed the surgical course 5. Reviewed intra-op anesthesia management and issues during anesthesia 6. Set expectations for post-procedure period 7. Allowed opportunity for questions and acknowledgement of understanding. 1702 An Stop Meds * Agents No agents on file. * Blood No blood administrations on file. Lines, Drains, and Airways Type Details Placement Removal Pablo Catheter 12/17/20; 1101; No; Obstruction - Urinary retention/Bladder outlet obstruction; 1; Hand hygiene performed, Site cleansed with sterile antiseptic, Sterile gloves, drape and lubricant used, Catheter inserted using aseptic technique, Anchoring device applied, Drainage bag secured below level of bladder, Closed system maintained, Pablo care post catheter insertion; Stat lock; Non-latex, Straight-tip; 18 Fr. 12/17/20 1101 by Marquita Silva RN 05/19/22 0000 by Taihr Pride RN Peripheral IV Placement Date: 01/02/22; Placement Time: 1205; Placed Outside of This Facility?: No; Size: 22 G; Orientation: Right; Location: Forearm; Site Prep: Alcohol; Local Anesthetic: None; Inserted By: Buster BETTENCOURT; Insertion attempts: 1; Ultrasound-guided Placement?: No; Patient Tolerance: Tolerated well; Removal Date: 01/03/22; Removal Time: 1015; Removal Reason: Patient Discharged 01/02/22 1205 by Esther Goins MD,PHD 01/03/22 1015 by Meli Carpenter RN ETT Placement Date: 01/02/22; Placement Time: 1523; Placed Outside of This Facility?:No; Mask Ventilate: Easy; Size (mm) : 7.5; Endotracheal: Oral; Blade Type: MAC 4; Placement Method: Video Laryngoscope (see comments); View Grade: 1; Viewable Anatomy: Epiglottis, Arytenoid, Vocal cords; Insertion Attempts: 1; Placement Verified By: Capnography, Auscultation, Chest Rise; Placed By: WET WHEELER; Removal Date: 01/02/22; Removal Time: 16501/02/22 1523 by Raina Davidson CRNA 01/02/22 1654 by Autumn Baca CRNA Arterial Line Placement Date: 01/02/22; Placement Time: 1539 (created via procedure documentation); Placed Outside of This Facility?: No; Size: 20; Orientation: Right; Location: Radial; Site Prep: Chlorhexidine; Local Anesthetic: None; Insertion Attempts: 2; Patient Tolerance: Tolerated well; Removal Date: 01/02/22; Removal Time: 1751; Removal Reason: Therapy Completed 01/02/22 1539 by Esther Goins MD,PHD 01/02/22 175 by Pearl Graham RN Power injectable Peripheral IV Placement Date: 01/02/22; Placement Time: 1540 (created via procedure documentation); Placed Outside of This Facility?: No; Size: 20 G; Orientation: Left; Location: Hand; Site Prep: Chlorhexidine; Local Anesthetic: None; Insertion attempts: 1; Ultrasound-guided Placement?: No; Patient Tolerance: Tolerated well; Removal Date: 01/03/22; Removal Time: 1015; Removal Reason: Patient Discharged 01/02/22 1540 by Esther Goins MD,PHD 01/03/22 1015 by Meli Carpenter RN Peripheral IV Placement Date: 01/02/22; Placement Time: 1541 (created via procedure documentation); Placed Outside of This Facility?: No; Size: 18 G; Orientation: Right; Location: Antecubital; Site Prep: Chlorhexidine; Local Anesthetic: None; Insertion attempts: 1; Ultrasound-guided Placement?: Yes; Patient Tolerance: Tolerated well; Removal Date: 01/03/22; Removal Time: 1015; Removal Reason: Patient Discharged 01/02/22 1541 by Esther Goins MD,PHD 01/03/22 1015 by Meli Carpenter RN documented in this encounter Social History Tobacco Use Types Packs/Day Years Used Date Smoking Tobacco: Former Cigarettes 3 3 1 11/09/1962 - 09/08/1966 Smokeless Tobacco: Former Chew Quit: 09/08/1963 Comments:Past smoker, regina hooper uses smokeless tobacco ([place]). Alcohol Use Standard Drinks/Week Comments No 0 [...] as of this encounter Functional Status * Question Answer Date of Assessment Author Status Do you have serious difficulty walking or climbing stairs? No 01/03/2022 2:00 AM Yefri Gross RN Act marcel * Question Answer Date of Assessment Author Status Do you have difficulty dressing or bathing? No 01/03/2022 2:00 AM Yefri Gross RN Active Because of a physical, mental, or emotional condition, do you have difficulty doing errands alone such as visiting a doctor's office or shopping? 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 Answer Date of Assessment Author Status No 09/08/2021 7:06 PM SENIOR CHEMICAL PROCESS ENGINEER Activ e * Do you have serious difficulty walking or climbing stairs? Answer Date of Assessment Author Status Yes 09/08/2021 7:06 PM Zoya Parisi RN Active * Do you have difficulty dressing or bathing? Answer Date of Assessment Author Status No 09/08/2021 7:06 PM Zoya Parisi RN Active * Because of a physical, mental, or emotional condition, do you have difficulty doing errands alone such as visiting a doctor's office or shopping? Answer Date of Assessment Author Status Yes 09/08/2021 7:06 PM Zoya Parisi RN Active * Calculated C-SSRS Risk Score (Lifetime/Recent) Answer Date of Assessment Author Status No Risk Indicated 01/02/2022 11:13 AM SANDYT Timothy Ann RN Active * [place] Suicide Severity Rating Scale (Screener/Recent Self-Report) Question Answer Date of Assessment Author Status 1. Wish to be (Past 1 Month) No 01/02/2022 11:13 AM SANDYT Isabela Ann RN Ac tive 2. Non-Specific Active Suicidal Thoughts (Past 1 Month) No 01/02/2022 11:13 AM SANDYT Isabela Ann RN Ac tive 6. Suicidal Behavior (Lifetime) No 01/02/2022 11:13 AM SANDYT Isabela Ann RN Ac tive documented as of this encounter Mental Status * Question Answer Entry Date Author Status Because of a physical, mental, or emotional condition, do you have serious difficulty concentrating, remembering, or making decisions? No 01/03/2022 2:00 AM CDT Yefri Benitez RN Active * Because of a physical, mental, or emotional condition, do you have serious difficulty concentrating, remembering, or making decisions? Answer Entry Date Author Status No 09/08/2021 7:06 PM Zoya Parisi RN Active documented in this encounter Plan of Treatment Upcoming Encounters Date Type Department Care Team (Late st Contact Info) Description 06/27/2025 2:30 AM CDT Allied Health/Nurse Visit [facility] [address] [place] [address] Yvonne Mosqueda MD [address] [place] [phone] documented as of this encounter Goals Goal Patient Goal Type Associated Problems Recent Progress Patient-Stated? Author Medications - able to self-administer medications General No Marita Lin RN Health - patient able to perform ADLs independently General No Delia, Marita A, RN Patient will return to prior living situation and remain independent in ADLs upon discharge from hospital 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 COVID-19 Rule Out 06/21/2022 06/21/2022 06/21/2022 9:41 PM CDT documented as of this encounter Care Teams Reel Slitter Relationship Specialty Start Date End Date Eran Masterson MD [address] [place] [address] PCP - General FAMILY PRACTICE 07/03/16 Yvonne Mosqueda MD [address] [place] [phone] CLINICAL CARDIAC ELECTROPHYSIOLOGY 07/03/16 Sohail Stafford MD [address] [place] [address] CARDIOVASCULAR DISEASE 11/03/16 11/12/24 Hailee Watts MD [address] [place] [address] ENDOCRINOLOGY 09/13/19 05/18/22 Oscar Anderson MD [facility] DEPT OF SURGERY - NEUROSURGERY [address] [place] [address] NEUROLOGICAL SURGERY 11/26/20 11/22/22 Theresa Hsieh III, MD [facility] DEPT OF SURGERY - NEUROSURGERY [address] [place] [address] Consulting Physician UROLOGY 01/22/21 11/22/22 Noemi Huynh MD [address] [place] [address] [phone] OTOLARYNGOLOGY 01/22/21 11/22/22 Mario Salazar MD [address] [place] [phone] UROLOGY 11/23/22 Marti Arreola RN Registered Nurse CARE MANAGEMENT 01/29/25 02/26/25 documented as of this encounter
[2025-04-15 07:30] LABS: Add Urine Microscopic? NO; Appearance Urine Clear (Clear); Glucose Urine UA Negative (Negative); Leukocyte Esterase Ur Negative LEU/UL (Negative); Nitrate Urine Negative (Negative); Specific Grav Ur <= 1.005 (1.010-1.020)
== END 2025-04-15 07:23 | disposition home or self-care (01) ==
LOC: CHSLAB 07:24
PROVIDERS: PCP Family Medicine; Visit Provider Family Medicine
DX: N39.0 Urinary tract infection, site not specified (principal)
CPT/HCPCS: 81003

== ENCOUNTER 2025-04-19 09:08 | Outpatient (CLI) | payer MEDICARE, SELFPAY ==
--- OUTSIDE RECORDS SUMMARY | 2025-04-19 09:15 | XMS_ITS | Encounter Summary ---
Author Organization [facility] Address [facility] [place] [address] Care Team Providers Care Wool Shearing Supervisor Name Role Phone Eran Masterson MD Primary Care Provider [phone] Yvonne Mosqueda MD Unavailable Sohail Stafford MD Unavailable Unavail able Hailee Watts MD Unavailable [phone] Loni Ang MD Unavailable Monica Gauthier MD, Devin Unavailable [phone] Jori MATHIAS MD, Courtney Unavailable [phone] Noemi Huynh MD Unavailable Mario Salazar MD Unavailable [phone] Marti Arreola RN Unavailable Unavailable Encounter Details Date Type Department Care Team (Late st Contact Info) Description 03/04/2019 Abstract [facility] [address] [place] [address] , Generic Conversion, Social History Tobacco Use Types Packs/Day Years Used Date Smoking Tobacco: Former Smokeless Tobacco: Former Chew Comments:Past smoker, regina hooper uses smokeless tobacco ([place]). Alcohol Use Standard Drinks/Week Comments No 0 [...] 06/27/2025 2:30 AM CDT Allied Health/Nurse Visit [facility] [address] [place] [address] Yvonne Mosqueda MD [address] [place] [address] documented as of this encounter [...] Rule Out 08/23/2021 08/23/2021 08/23/2021 7:52 PM HORIZONTAL RESAW OPERATOR COVID-19 Rule Out 10/04/2021 10/04/2021 10/04/2021 8:30 PM HORIZONTAL RESAW OPERATOR COVID-19 Rule Out 11/08/2021 11/08/2021 11/08/2021 6:51 PM HORIZONTAL RESAW OPERATOR COVID-19 Rule Out 12/13/2021 12/13/2021 12/13/2021 7:13 PM CDT COVID-19 Rule Out 12/30/2021 12/30/2021 12/30/2021 8:06 PM CDT COVID-19 Rule Out 06/21/2022 06/21/2022 06/21/2022 9:41 PM CDT documented as of this encounter Care Teams Wool Shearing Supervisor Relationship Specialty Start Date End Date Eran Masterson MD [address] [place] [address] PCP - General FAMILY PRACTICE 07/03/16 Yvonne Mosqueda MD [address] [place] [address] CLINICAL CARDIAC ELECTROPHYSIOLOGY 07/03/16 Sohail Stafford MD [address] [place] [address] CARDIOVASCULAR DISEASE 11/03/16 11/12/24 Hailee Watts MD [address] [place], [place] [address] ENDOCRINOLOGY 09/13/19 05/18/22 Loni Ang MD [address] [place], [place] [address] INTERNAL MEDICINE 09/13/19 11/25/20 Oscar Anderson MD [facility] DEPT OF SURGERY - NEUROSURGERY [address] [place], [place] [phone] NEUROLOGICAL SURGERY 11/26/20 11/22/22 Theresa Hsieh III, MD [facility] DEPT OF SURGERY - NEUROSURGERY [address] [place], [place] [address] Consulting Physician UROLOGY 01/22/21 11/22/22 Noemi Huynh MD [address] [place] [address] OTOLARYNGOLOGY 01/22/21 11/22/22 Mario Salazar MD [address] [address] UROLOGY 11/23/22 Marti Arreola RN Registered Nurse CARE MANAGEMENT 01/29/25 02/26/25 documented as of this encounter
--- OUTSIDE RECORDS SUMMARY | 2025-04-19 09:15 | XMS_ITS | Encounter Summary ---
Author Organization [facility] Address [address] [place] [address] Care Team Providers Care Psychological Anthropologist Name Role Phone Eran Masterson MD Primary Care Provider [phone] Yvonne Mosqueda MD Unavailable [facility] sher MD Unavailable Unavail able Hailee Watts MD Unavailable [phone] Loni Ang MD Unavailable Monica Gauthier MD, Devin Unavailable [phone] Jori MATHIAS MD, Courtney Unavailable [phone] Noemi Huynh MD Unavailable Mario Salazar MD Unavailable [phone] Marti Arreola RN Unavailable Unavailable Encounter Details Date Type Department Care Team (Late st Contact Info) Description 09/23/2016 Abstract [facility] [address] [place] [address] Yvonne Mosqueda MD [address] [place] [address] Social History Tobacco Use Types Packs/Day Years Used Date Smoking Tobacco: Former Smokeless Tobacco: Current Chew Comments:Past smoker, regina hooper uses smokeless tobacco ([place]). Alcohol Use Standard Drinks/Week Comments No 0 [...] 06/27/2025 2:30 AM CDT Allied Health/Nurse Visit [facility] [address] [place] [address] Yvonne Mosqueda MD [address] [place] [address] documented as of this encounter [...] Rule Out 08/23/2021 08/23/2021 08/23/2021 7:52 PM SALES INTERN COVID-19 Rule Out 10/04/2021 10/04/2021 10/04/2021 8:30 PM SALES INTERN COVID-19 Rule Out 11/08/2021 11/08/2021 11/08/2021 6:51 PM SALES INTERN COVID-19 Rule Out 12/13/2021 12/13/2021 12/13/2021 7:13 PM CDT COVID-19 Rule Out 12/30/2021 12/30/2021 12/30/2021 8:06 PM CDT COVID-19 Rule Out 06/21/2022 06/21/2022 06/21/2022 9:41 PM CDT documented as of this encounter Care Teams Psychological Anthropologist Relationship Specialty Start Date End Date Eran Masterson MD [address] [facility] [place] [address] PCP - General FAMILY PRACTICE 07/03/16 Yvonne Mosqueda MD [address] [place] [address] CLINICAL CARDIAC ELECTROPHYSIOLOGY 07/03/16 Sohail Stafford MD [address] [place] [phone] CARDIOVASCULAR DISEASE 11/03/16 11/12/24 Hailee Watts MD [address] [place] [address] ENDOCRINOLOGY 09/13/19 05/18/22 Loni Ang MD [address] [place] [address] INTERNAL MEDICINE 09/13/19 11/25/20 Oscar Anderson MD [facility] DEPT OF SURGERY - NEUROSURGERY [address] [place] [address] NEUROLOGICAL SURGERY 11/26/20 11/22/22 Theresa Hsieh III, MD [facility] DEPT OF SURGERY - NEUROSURGERY [address] [place] [address] Consulting Physician UROLOGY 01/22/21 11/22/22 Noemi Huynh MD [address] [place] [address] OTOLARYNGOLOGY 01/22/21 11/22/22 Mario Salazar MD [address] [place] [phone] UROLOGY 11/23/22 Marti Arreola, KRISHAN Registered Nurse CARE MANAGEMENT 01/29/25 02/26/25 documented as of this encounter
--- OUTSIDE RECORDS SUMMARY | 2025-04-19 09:15 | XMS_ITS | Encounter Summary ---
Author Organization [facility] Address [address] [place] [address] Care Team Providers Care Quality Engineer Medical Device Name Role Phone Eran Masterson MD Primary Care Provider [phone] Yvonne Mosqueda MD Unavailable [facility] MD Unavailable Unavail able Hailee Watts MD Unavailable [phone] Loni Ang MD Unavailable Monica Gauthier MD, Devin Unavailable [phone] Jori MATHIAS MD, Courtney Unavailable [phone] Noemi Huynh MD Unavailable Mario Salazar MD Unavailable [phone] Marti Arreola RN Unavailable Unavailable Encounter Details Date Type Department Care Team (Late st Contact Info) Description 12/11/2017 Abstract [facility] [address] [place] [address] , Leeanna Chavarria MD Social History Tobacco Use Types Packs/Day Years Used Date Smoking Tobacco: Former Smokeless Tobacco: Former Chew Comments:Past smoker, regina hooper uses smokeless tobacco ([place]). Alcohol Use Standard Drinks/Week Comments No 0 [...] 06/27/2025 2:30 AM CDT Allied Health/Nurse Visit [facility] [address] [place] [address] Yvonne Mosqueda MD [address] [place] [address] documented as of this encounter [...] Rule Out 08/23/2021 08/23/2021 08/23/2021 7:52 PM SENIOR INVESTMENT MANAGER COVID-19 Rule Out 10/04/2021 10/04/2021 10/04/2021 8:30 PM SENIOR INVESTMENT MANAGER COVID-19 Rule Out 11/08/2021 11/08/2021 11/08/2021 6:51 PM SENIOR INVESTMENT MANAGER COVID-19 Rule Out 12/13/2021 12/13/2021 12/13/2021 7:13 PM CDT COVID-19 Rule Out 12/30/2021 12/30/2021 12/30/2021 8:06 PM CDT COVID-19 Rule Out 06/21/2022 06/21/2022 06/21/2022 9:41 PM CDT documented as of this encounter Care Teams Quality Engineer Medical Device Relationship Specialty Start Date End Date Eran Masterson MD [address] [place] [address] PCP - General FAMILY PRACTICE 07/03/16 Yvonne Mosqueda MD [address] [place] [address] CLINICAL CARDIAC ELECTROPHYSIOLOGY 07/03/16 Sohail Stafford MD [address] [place] [address] CARDIOVASCULAR DISEASE 11/03/16 11/12/24 Hailee Watts MD [address] [place], [place] [address] ENDOCRINOLOGY 09/13/19 05/18/22 Loni Ang MD [address] [place], [place] [phone] INTERNAL MEDICINE 09/13/19 11/25/20 Oscar Anderson MD [facility] DEPT OF SURGERY - NEUROSURGERY [address] [place], [place] [address] NEUROLOGICAL SURGERY 11/26/20 11/22/22 Theresa Hsieh III, MD [facility] DEPT OF SURGERY - NEUROSURGERY [address] [place], [place] [address] Consulting Physician UROLOGY 01/22/21 11/22/22 Noemi Huynh MD [address] [place] [address] OTOLARYNGOLOGY 01/22/21 11/22/22 Mario Salazar MD [address] [phone] UROLOGY 11/23/22 Marti Arreola RN Registered Nurse CARE MANAGEMENT 01/29/25 02/26/25 documented as of this encounter
--- OUTSIDE RECORDS SUMMARY | 2025-04-19 09:16 | XMS_ITS | Encounter Summary ---
Author Organization [facility] Address [address] [place] [address] Care Team Providers Care Assistant City Attorney Name Role Phone Eran Masterson MD Primary Care Provider [phone] Yvonne Mosqueda MD Unavailable [facility] MD Unavailable Unavail able Hailee Watts MD Unavailable [phone] Loni Ang MD Unavailable Monica Gauthier MD, Devin Unavailable [phone] Jori MATHIAS MD, Courtney Unavailable [phone] Noemi Huynh MD Unavailable Mario Salazar MD Unavailable [phone] Marti Arreola RN Unavailable Unavailable Encounter Details Date Type Department Care Team (Late st Contact Info) Description 07/16/2016 Abstract [facility] [address] [place] [address] Yvonne Mosqueda MD [address] [place] [address] Social History Tobacco Use Types Packs/Day Years Used Date Smoking Tobacco: Former Smokeless Tobacco: Current Chew Comments:Past smoker, regina hooper uses smokeless tobacco ([place]). Alcohol Use Standard Drinks/Week Comments No 0 [...] 06/27/2025 2:30 AM CDT Allied Health/Nurse Visit [facility] [address] [place] [address] Yvonne Mosqueda MD [address] [place] [address] documented as of this encounter [...] Rule Out 08/23/2021 08/23/2021 08/23/2021 7:52 PM BELL CLERK COVID-19 Rule Out 10/04/2021 10/04/2021 10/04/2021 8:30 PM BELL CLERK COVID-19 Rule Out 11/08/2021 11/08/2021 11/08/2021 6:51 PM BELL CLERK COVID-19 Rule Out 12/13/2021 12/13/2021 12/13/2021 7:13 PM CDT COVID-19 Rule Out 12/30/2021 12/30/2021 12/30/2021 8:06 PM CDT COVID-19 Rule Out 06/21/2022 06/21/2022 06/21/2022 9:41 PM CDT documented as of this encounter Care Teams Assistant City Attorney Relationship Specialty Start Date End Date Eran Masterson MD [address] [facility] [place] [address] PCP - General FAMILY PRACTICE 07/03/16 Yvonne Mosqueda MD [address] [place] [phone] CLINICAL CARDIAC ELECTROPHYSIOLOGY 07/03/16 Sohail Stafford MD [address] [place] [phone] CARDIOVASCULAR DISEASE 11/03/16 11/12/24 Hailee Watts MD [address] [place] [address] ENDOCRINOLOGY 09/13/19 05/18/22 Loni Ang MD [address] [place] [address] INTERNAL MEDICINE 09/13/19 11/25/20 Oscar Anderson MD [facility] DEPT OF SURGERY - NEUROSURGERY [address] [address] NEUROLOGICAL SURGERY 11/26/20 11/22/22 Theresa Hsieh III, MD [facility] DEPT OF SURGERY - NEUROSURGERY [address] [place] [address] Consulting Physician UROLOGY 01/22/21 11/22/22 Noemi Huynh MD [address] [place] [address] OTOLARYNGOLOGY 01/22/21 11/22/22 Mario Salazar MD [address] [place] [phone] UROLOGY 11/23/22 Marti Arreola RN Registered Nurse CARE MANAGEMENT 01/29/25 02/26/25 documented as of this encounter
--- OUTSIDE RECORDS SUMMARY | 2025-04-19 09:16 | XMS_ITS | Encounter Summary ---
Author Organization [facility] Address [address] [place] [address] Care Team Providers Care Corporate Paralegal Name Role Phone Eran Masterson MD Primary Care Provider [phone] Yvonne Mosqueda MD Unavailable Sohail Stafford MD Unavailable Unavail able Hailee Watts MD Unavailable [phone] Loni Ang MD Unavailable Monica Gauthier MD, Devin Unavailable [phone] Jori MATHIAS MD, Courtney Unavailable [phone] Noemi Huynh MD Unavailable Mario Salazar MD Unavailable [phone] Marti Arreola RN Unavailable Unavailable Encounter Details Date Type Department Care Team (Late st Contact Info) Description 02/28/2014 Abstract [facility] AT [address] [place] [address] Sohail Stafford MD Social History Tobacco Use Types Packs/Day Years Used Date Smoking Tobacco: Former Smokeless Tobacco: Current Chew Comments:Past smoker, regina hooper uses smokeless tobacco (Clarence). Alcohol Use Standard Drinks/Week Comments No 0 [...] 06/27/2025 2:30 AM CDT [facility] [address] [place] [phone] Yvonne Mosqueda MD [address] [place] [address] documented as of this encounter [...] Rule Out 08/23/2021 08/23/2021 08/23/2021 7:52 PM MACHINE CLIPPER COVID-19 Rule Out 10/04/2021 10/04/2021 10/04/2021 8:30 PM MACHINE CLIPPER COVID-19 Rule Out 11/08/2021 11/08/2021 11/08/2021 6:51 PM MACHINE CLIPPER COVID-19 Rule Out 12/13/2021 12/13/2021 12/13/2021 7:13 PM CDT COVID-19 Rule Out 12/30/2021 12/30/2021 12/30/2021 8:06 PM CDT COVID-19 Rule Out 06/21/2022 06/21/2022 06/21/2022 9:41 PM CDT documented as of this encounter Care Teams Corporate Paralegal Relationship Specialty Start Date End Date Eran Masterson MD [address] [place] [address] PCP - General FAMILY PRACTICE 07/03/16 Yvonne Mosqueda MD [address] [place] [phone] CLINICAL CARDIAC ELECTROPHYSIOLOGY 07/03/16 Sohail Stafford MD [address] [place] [address] CARDIOVASCULAR DISEASE 11/03/16 11/12/24 Hailee Watts MD [address] [place], [place] [phone] ENDOCRINOLOGY 09/13/19 05/18/22 Loni Ang MD [address] [place], [place] [phone] INTERNAL MEDICINE 09/13/19 11/25/20 Oscar Anderson MD [facility] - NEUROSURGERY [address] [place], [place] [address] NEUROLOGICAL SURGERY 11/26/20 11/22/22 Theresa Hsieh III, MD [facility] - NEUROSURGERY [address] [place], [place] [address] Consulting Physician UROLOGY 01/22/21 11/22/22 Noemi Huynh MD [address] [place] [phone] OTOLARYNGOLOGY 01/22/21 11/22/22 Mario Salazar MD [address] [phone] UROLOGY 11/23/22 Marti Arreola RN Registered Nurse CARE MANAGEMENT 01/29/25 02/26/25 documented as of this encounter
--- OUTSIDE RECORDS SUMMARY | 2025-04-19 09:16 | XMS_ITS | Encounter Summary ---
Author Organization [facility] Address [address] [place] [address] Care Team Providers Care Women Specialist Name Role Phone Eran Masterson MD Primary Care Provider [phone] Yvonne Mosqueda MD [facility]available [facility] Unavailable Unavail able Hailee Watts MD Unavailable [phone] Monica Gauthier MD, Devin Unavailable [phone] Jori MATHIAS MD, Courtney Unavailable [phone] Noemi Huynh MD Unavailable Mario Salazar MD Unavailable [phone] Marti Arreola RN Unavailable Unavailable Encounter Details Date Type Department Care Team (Late st Contact Info) Description 01/06/2022 Hospital Follow-up Call [facility] Cardiovascular Care Unit [address] [place] [address] Davina Walters, RN Social History Tobacco Use Types Packs/Day Years Used Date Smoking Tobacco: Former Cigarettes 3 3 1 11/09/1962 - 09/08/1966 Smokeless Tobacco: Former Chew Quit: 09/08/1963 Comments:Past smoker, regina hooper uses smokeless tobacco (Anza). Alcohol Use Standard Drinks/Week Comments No 0 [...] 06/27/2025 2:30 AM CDT Allied Health/Nurse Visit [facility] [address] [place] [phone] Yvonne Mosqueda MD [address] [place] [address] documented as of this encounter [...] documented as of this encounter Care Teams Women Specialist Relationship Specialty Start Date End Date Earn Masterson MD [address] [place] [phone] PCP - General FAMILY PRACTICE 07/03/16 Yvonne Mosqueda MD [address] [place] [phone] CLINICAL CARDIAC ELECTROPHYSIOLOGY 07/03/16 Sohail Stafford MD [address] [place] [phone] CARDIOVASCULAR DISEASE 11/03/16 11/12/24 Hailee Watts MD [address] [place] [address] ENDOCRINOLOGY 09/13/19 05/18/22 Oscar Anderson MD [facility] DEPT OF SURGERY - [place] [address] [place] [place] [address] NEUROLOGICAL SURGERY 11/26/20 11/22/22 Theresa Hsieh III, MD [facility] DEPT OF SURGERY - [place] [place] [address] Consulting Physician UROLOGY 01/22/21 11/22/22 Noemi Huynh MD [address] [place] [phone] OTOLARYNGOLOGY 01/22/21 11/22/22 Mario Salazar MD [address] [place] [phone] UROLOGY 11/23/22 Marti Arreola RN Registered Nurse CARE MANAGEMENT 01/29/25 02/26/25 documented as of this encounter
--- OUTSIDE RECORDS SUMMARY | 2025-04-19 09:16 | XMS_ITS | Clinical Summary ---
Author Organization [facility] Address [address] [place] [address] Care Team Providers Care Editor Trade Journal Name Role Phone Eran Peña MD Primary Care Provider [phone] Yvonne Mosqueda MD Unavailable Rosario Galvan MD Unavailable [phone] Allergies Active Allergy Reactions Criticality Noted [...] 11/10/2024 Dementia 11/10/2024 Depression 11/10/2024 Diabetic neuropathy ([facility]) 11/10/2024 Diabetic retinopathy associa duglas with type 2 diabetes mellitus ([facility]) 11/10/2024 Bryon hematuria 11/10/2024 Gastroesophageal reflux disease 11/10/2024 Renal cell carcinoma ([facility]) Type 2 diabetes mellitus ([facility]) 11/10 Overview (11/10/2024): Jun 04, 2020 Entered By: YONNY MANTILLA Comment: no longer on insulin or pills after losing 125# Vitamin D deficiency 11/10/2024 Carcinoma of prostate ([facility]) 03/01/20 24 Renal mass 04/16/2023 Right kidney mass 01/18/2023 Malignant neoplasm of colon, unspecified part of colon ([facility]) 10/06/2022 Severe sepsis ([facility]) 06/21/2022 GI bleed 06/21/2022 Presence of Amulet left atrial appendage closure device 01/03/2022 Fecal occult blood test positive 09/09/2021 Acute posterior epistaxis 04/24/2021 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 02/14/2021 Coronary artery disease invo lving [place] coronary artery of [place] heart without angina pectoris 02/07/2021 Other retention of urine 12/11/2020 Overview (12/11/2020): Added automatically from request for surgery [id number] Atrial flutter ([facility]) 11/14/2019 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 ([facility]) 07/09/2019 Secondary male hypogonadism 07/09/2019 Biventricular cardiac pacemaker in situ 09/17/20 17 2nd degree atrioventricular block 08/27/2016 Persistent atrial fibrillation ([facility]) 08/11/2016 Sinus node dysfunction ([facility]) 016 Muscle weakness 12/27/2012 Hypertension Hyperlipidemia Stage 3 chronic kidney disease Heart failure with preserved ejection fraction ([facility]) Resolved Problems Problem Noted Date Diagnosed Date Resolved Date Fall 01/28/2025 01/28/2025 Overview (01/28/2025): Patient has fallen multiple times recently. Family concerned regarding safety at home. 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 6 11/10/2024 Chronic anticoagulation 07/03/201610/28 Nonischemic cardiomyopathy ([facility] HHS/HCC) 12/17/2017 Diastolic heart failure ([facility] H[facility]) 12/17/2017 Encounters Date Type Department Care Team Description 02/28/2025 1:15 AM CDT [facility] [address] [place] [address] Yvonne Mosqueda MD 02/27/2025 Patient Outreach [address] [phone] Marti Arreola RN Hospital Follow Up (Discharge to [facility] 02/02/2025 from [facility]) 02/27/2025 Patient Outreach [address] [address] Marti Arreola RN Hospital Follow Up (Discharge SFL 02/02/2025. Client currently in Rehab.) 02/14/2025 Patient Outreach [address] [phone] Marti Arreola RN 02/13/2025 Patient Outreach [address] [address] Marti Arreola RN 02/06/2025 Patient Outreach [address] [address] Marti Arreola, [facility] (Discharged to [facility] 02/02/25. Weekly contact with rehab facility for update.) 02/05/2025 Patient Outreach [address] [address] Tonia Lora, RN TCM (TCM SFL 01/28/25-02/02/25) 01/29/2025 Patient Outreach [address] [phone] Marti Arreola, KRISHAN Hospital Follow Up ([facility] admission notification) 01/28/2025 1:10 AM CDT - 02/02/2025 11:56 AM CDT Hospital Encounter [facility] [address] [place] [address] Rosario Yanez DO Wujek, Eran Bland MD Fall Discharge Disposition: Group Home Facility 01/28/2025 Travel from Last 3 Months Immunizations Immunization Administration Dates Next Due Influenza Adult (Generic) 07/22/2021,,08/23/2019,2017,09/10/2017 PFIZER COVID-19 (ORIGINAL FORMULATION, PURPLE CAP) mRNA, LNP-S, PF, 30 MCG/0.3 ML DOSE 07/31/2021,11/20/2020,2020 Td, Adsorbed, Preservative F ree, Adult Use, Lf Unspecified 04/01/2020 Tdap (Boostrix) 04/29/2022 Family History Medical History Relation Comments Diabetes Brother Heart Disease Father Hypertension Father [place] Father Heart Disease Mother Hypertension Mother [place] Mother Coronary artery disease Other Relation Status [...] from your doctor or pharmacy? Often 01/28/2025 [facility] Utilities Answer Date Recorded In the past 12 months has e [employer], gas, oil, or water [employer] threatened to shut off services in your [...] week 01/28/2025 How often do you attend protestant or synagogue serv ices? Never 01/28/2025 Do you belong to any clubs o r organizations such as protestant groups, unions, fraternal or athletic groups, or [...] move on to questions 3-9 0 02/18/2022 [facility] of Occupat ional Health - Occupational Stress [...] place to sleep or slept in a senior living (including now)? No 04/17/2023 Housing Stability Vital Sign Answer Lb e Recorded In the last 12 months, was t here a time when you were not able to pay the mortgage or rent on time? No 01/28/2025 In the past 12 months, how m any times have you moved where you were living? 1 01/28/2025 At any time in the past 12 m [facility], were you homeless or living in a senior living (including now)? No 01/28/2025 Education Answer Date [...] 06/27/2025 2:30 AM CDT Allied Health/Nurse Visit [facility] [address] [place] [phone] Yvonne Mosqueda MD [address] [place] [phone] Health Maintenance Due Date Last Done Comments [...] 07/31/2021, 11/20/2020, Additional history exists PHQ-2 (Physician Lummi) 09/27/2024 DTaP, Tdap and Td Vaccines (4 [...] Barillas RN Medical Devices Implanted Type Area Life Science Teacher Device Identifier Shelf Expiration Date Model / Serial / Lot Barakat Amplatzer Amulet Left Atrial Appendage Occluder- [id number] Implanted:04/2022 by Yvonne Mosqueda MD (Quantity not on file) Closure Device Heart [employer]AKAT VASCULAR 06/26/2026 [id number] / / [id number] St Brad Dual Chamber Pacemaker Implanted:06/29 by Yvonne Mosqueda MD (Quantity not on file) Pacemaker [facility] - DIV [facility] BRAD [id number] / [id number] / Barakat Quadra Allure Biv Ppm-06/21/2024 Implanted:05/29 by Yvonne Mosqueda MD (Quantity not on file) Pacemaker BARAKAT PACER 09/26/2025 [id number] / [id number] / Agent Hemostatic Surgiflo 8 Ml Kit - [id number] Implanted:Qty: 1 on 04/16/2023 by Rosario Galvan MD at [facility] Sealant Right: Kidney [employer] 05/27/2024 [id number] / / [id number] Right Ventricular Lead Replacement- Implanted:07/29 by Yvonne Mosqueda MD (Quantity not on file) Explanted Type Area Life Science Teacher Device Identifier Shelf Expiration Date Model / [...] WWO CON Routine 10/01/2022 2: 31 PM ROLLER SKATER Hematuria, microscopic HEMOGLOBIN, GLYCOSYLATED Routine 06/24/2022 9:18 [...] 8:18 AM Narrative 02/02/2025 8:19 AM CDT [address] [place] [address] SINGLE VIEW OF THE CHEST Clinical history: Possible aspiration Comparison: January 28, 2025 A single view of the chest demonstrates the cardiac silhouette to be stable in size and appearance. A multilead pacemaker stable from a left-sided approach. The pulmonary vessels appear normal. The Lungs are clear. No consolidations or effusions are seen. Procedure Note Niels Mcdonald MD - 02/02/[address] [place] [address] SINGLE VIEW OF THE CHEST Clinical history: [...] - 145 MMOL/L 02/02/2025 6:19 AM CDT [facility] POTASSIUM S/P/B 3.4(L) 3.5 - 5.1 MMOL/L 02/02/2025 6:19 AM [facility] CHLORIDE S/P/B 98 98 - 107 MMOL/L 02/02/2025 6:19 AM [facility] CO2 34.4(H) 21.0 - 32.0 MMOL/L 02/02/2025 6:19 AM [facility] GLUCOSE 186(H) 70 - 99 MG/DL 02/02/2025 6:19 AM [facility] Comment: FASTING GLUCOSE 100 TO 125 MG/DL IS CONSISTENT WITH IMPAIRED FASTING GLUCOSE. FASTING GLUCOSE >125 MG/DL IS CONSISTENT WITH DIABETES. RANDOM GLUCOSE >200 MG/DL WITH HYPERGLYCEMIC SYMPTOMS IS CONSISTENT WITH DIABETES. PER ADA GUIDELINES BUN 50(H) 6 - 24 MG/DL 02/02/2025 6:19 AM [facility] CREATININE S/P/B 2.52(H) 0.70 - 1.30 MG/DL 02/02/2025 6:19 AM [facility] CALCIUM S/P/B 9.0 8.4 - 10.5 MG/DL 02/02/2025 6:19 AM [facility] BILIRUBIN TOTAL S/P/B 0.5 0.2 - 1.0 MG/DL 02/02/2025 6:19 AM [facility] Comment: THIS ASSAY IS NOT RECOMMENDED FOR PATIENTS UNDERGOING TREATMENT WITH ELTROMBOPAG DUE TO THE POTENTIAL FOR FALSELY ELEVATED RESULTS. ALKALINE PHOSPHATASE S/P/B 119(H) 45 - 115 U/L 02/02/2025 6:19 AM [facility] AST 30 15 - 37 U/L 02/02/2025 6:19 AM [facility] ALT 20 16 - 63 U/L 02/02/2025 6:19 AM [facility] TOTAL PROTEIN S/P/B 6.8 6.4 - 8.2 G/DL 02/02/2025 6:19 AM [facility] ALBUMIN S/P/B 3.1(L) 3.4 - 5.0 G/DL 02/02/2025 6:19 AM CDT [facility] ANION GAP 4.6(L) 5.0 - 15.0 MMOL/L 02/02/2025 6:19 AM CDT [facility] OSMOLALITY (CALC) 302 MOSM/KG 025 6:19 AM CDT [facility] Comment:REFERENCE RANGE NOT ESTABLISHED GFR ESTIMATE 25(L) >89 ML/MIN/1. 73 M2 02/02/2025 6:19 AM CDT [facility] GFR NOTES GFR REFERENCE S: 02/02/2025 6:19 AM CDT [facility] Comment: THE ESTIMATED GFR [...] Peña MD LABORATORY Final Result [facility] [address] [place] [address], * (ABNORMAL) CBC W/DIFF AUTOMATED (02/02/2025 5:39 AM CDT) Only the most recent of7 resultswithin the time period is included. WBC 6.71 4.00 - 10.80 x10'3/uL 02/02/2025 6:03 AM CDT [facility] RBC 4.06(L) 4.50 - 6.10 x10'6/uL 02/02/2025 6:03 AM CDT [facility] HGB 11.6(L) 13.0 - 18.0 G/DL 02/02/2025 6:03 AM CDT [facility] HCT 35.0(L) 37.0 - 52.0 % 02/02/2025 6:03 AM CDT [facility] MCV 86.2 78.0 - 100.0 FL 02/02/2025 6:03 AM CDT [facility] MCH 28.6 27.0 - 31.0 PG 02/02/2025 6:03 AM CDT [facility] MCHC 33.1 33.0 - 36.0 G/DL 02/02/2025 6:03 AM CDT [facility] RDW 13.0 11.5 - 14.5 % 02/02/2025 6:03 AM CDT [facility] PLT 227 150 - 350 x10'3/uL 02/02/2025 6:03 AM CDT [facility] MPV 10.2 7.4 - 10.4 FL 02/02/2025 6:03 AM CDT [facility] CBC COMMENT NORMAL REFERENCE RANGE NOT ESTABLISHED FOR THE PROPORTIONAL LEUKOCYTE DIFFERENTIAL. 02/02/2025 6:03 AM CDT [facility] NEUTROPHILS % 57.7 % 02/02/2025 6:03 AM CDT [facility] LYMPHOCYTES % 25.5 % 02/02/2025 6:03 AM CDT [facility] MONOCYTES % 9.1 % 02/02/2025 6:03 AM CDT [facility] EOSINOPHILS % 5.5 % 02/02/2025 6:03 AM CDT [facility] BASOPHILS % 1.0 % 02/02/2025 6:03 AM CDT [facility] IMMATURE GRANS % 1.2 % 02/03/20 6:03 AM CDT [facility] NRBC % 0.0 % 02/02/2025 6:03 AM CDT [facility] ABS. NEUTROPHILS 3.87 1.60 - 8.30 x10'3/uL 02/02/2025 6:03 AM CDT [facility] ABS. LYMPHOCYTES 1.71 0.80 - 4.70 x10'3/uL 02/02/2025 6:03 AM CDT [facility] ABS. MONOCYTES 0.61 0.00 - 1.50 x10'3/uL 02/02/2025 6:03 AM CDT [facility] ABS. EOSINOPHILS 0.37 0.00 - 0.40 x10'3/uL 02/02/2025 6:03 AM CDT [facility] ABS. BASOPHILS 0.07 0.00 - 0.20 x10'3/uL 02/02/2025 6:03 AM CDT [facility] ABS. IMMATURE GRANULOCYTES 0.08(H) 0.00 - 0.03 x10'3/uL 02/02/2025 6:03 AM CDT [facility] ABS. NUCLEATED RBC'S 0.00 0.00 - 0.01 x10'3/uL 02/02/2025 6:03 AM CDT [facility] 02/02/2025 5:3 9 AM CDT us Eran Peña MD LABORATORY Final Result Performing Organization Address City/[facility]/ZIP [place] [address], * (ABNORMAL) MAGNESIUM (02/02/2025 5:39 AM CDT) Only the most recent of2 resultswithin the time period is included. MAGNESIUM 1.7(L) 1.8 - 2.4 MG/DL 02/02/2025 6:19 AM CDT [facility] 02/02/2025 5:39 AM CDT us Eran Peña MD LABORATORY Final Result Performing Organization Address City/[facility]/ZIP Co de Phone Number [facility] [place] [address], [place] [phone] * (ABNORMAL) BASIC METABOLIC PANEL (02/01/2025 4:40 AM CDT) Only the most recent of5 resultswithin the time period is included. SODIUM S/P/B 136 136 - 145 MMOL/L 02/01/2025 5:32 AM CDT [facility] POTASSIUM S/P/B 3.6 3.5 - 5.1 MMOL/L 02/01/2025 5:32 AM CDT [facility] Comment:SLIGHT HEMOLYSIS, RE SULT MAY BE AFFECTED. CHLORIDE S/P/B 96(L) 98 - 107 MMOL/L 02/01/2025 5:32 AM CDT [facility] CO2 34.2(H) 21.0 - 32.0 MMOL/L 02/01/2025 5:32 AM CDT [facility] GLUCOSE 169(H) 70 - 99 MG/DL 02/01/2025 5:32 AM T [facility] Comment: FASTING GLUCOSE 100 TO 125 MG/DL IS CONSISTENT WITH IMPAIRED FASTING GLUCOSE. FASTING GLUCOSE >125 MG/DL IS CONSISTENT WITH DIABETES. RANDOM GLUCOSE >200 MG/DL WITH HYPERGLYCEMIC SYMPTOMS IS CONSISTENT WITH DIABETES. PER ADA GUIDELINES BUN 47(H) 6 - 24 MG/DL 02/01/2025 5:32 AM CDT [facility] CREATININE S/P/B 2.38(H) 0.70 - 1.30 MG/DL 02/01/2025 5:32 AM CDT [facility] CALCIUM S/P/B 9.5 8.4 - 10.5 MG/DL 02/01/2025 5:32 AM T [facility] ANION GAP 5.8 5.0 - 15.0 MMOL/L 02/01/2025 5:32 AM T [facility] OSMOLALITY (CALC) 298 MOSM/KG 025 5:32 AM T [facility] Comment:REFERENCE RANGE NOT ESTABLISHED GFR ESTIMATE 27(L) >89 ML/MIN/1. 73 M2 02/01/2025 5:32 AM CDT [facility] GFR NOTES GFR REFERENCE S: 02/01/2025 5:32 AM CDT [facility] Comment: THE ESTIMATED GFR [...] MD LABORATORY Final Result Performing Organization Address City/State/[facility] Co de Phone Number [facility] [address] [place], [place] [id number], * ECG 12 lead (01/28/2025 1:38 PM CDT) Only the most recent of2 resultswithin the time period is included. 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 Education: : 1945 Requested By: ERAN PEÑA Order Number: [id number] Reading MD: Bob Perez Measurements Intervals Mckean Rate: 95 P: 121 MI: 164 QRS: 115 QRSD: 183 T: -32 QT: 399 QTc: 502 Interpretive Statements ELECTRONIC VENTRICULAR PACEMAKER ABNORMAL ECG Procedure Note Bob Perez MD - 05/06/[address] [place] [address] Test Date: 2025-01-28 Pat Name: JIA CHIN Department: 3 Room: [facility] 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 [address] EXAMINATION: CT of the head EXAM DATE/TIME: [...] YELLOW 01/28/2025 2:30 AM CDT [facility] TRANSPARENCY CLEAR 01/28/2025 2:30 AM CDT [facility] SPECIFIC GRAVITY (U) 1.010 1.000 - 1.025 01/28/2025 2:30 AM CDT [facility] U PH 6.0 5.0 - 8.0 01/28/2025 2:30 AM CDT [facility] LEUKOCYTES (U) NEGATIVE NEGATIVE 01/28/2025 2:30 AM CDT [facility] NITRITES NEGATIVE NEGATIVE 01/28/2025 2:30 AM CDT [facility] PROTEIN RANDOM (U) NEGATIVE NEGATIVE 01/28/2025 2:30 AM CDT [facility] GLUCOSE (U) NEGATIVE NEGATIVE 01/28/2025 2:30 AM CDT [facility] KETONES MG/DL (U) NEGATIVE NEGATIVE 01/28/2025 2:30 AM CDT [facility] UROBILINOGEN 0.2 <1.0 EU/DL 01/28/2025 2:30 AM CDT [facility] BILIRUBIN (U) NEGATIVE NEGATIVE 01/28/2025 2:30 AM CDT [facility] BLOOD (U) NEGATIVE NEGATIVE 01/28/2025 2:30 AM CDT [facility] WBC/HPF 0-5 0 - 5 /HPF 01/28/2025 2:30 AM CDT [facility] EPI/LPF OCCASIONAL /LPF 01/28/2025 2:30 AM CDT [facility] BACTERIA (U) 1+ /HPF 01/28/2025 2:30 AM CDT [facility] MUCUS PRESENT 01/28/2025 2:30 AM CDT [facility] OTHER CASTS (U) HYALINE /LPF 2:30 AM CDT [facility] Comment:0-5 URINE SPECIMEN OBTAINED BY CLEAN CATCH PROCEDURE / Unknown 01/28/2025 2:05 AM CDT us Rosario Yanez DO URINE ORDERABLES [place] [address], * BETA-HYDROXYBUTYRATE (01/28/2025 1:34 AM CDT) BETA-HYDROXYBUT YRATE 0.2 0.0 - 0.3 MMOL/L 01/28/2025 1:43 AM CDT [facility] 01/28/2025 1:34 AM CDT us Rosario Yanez DO LABORATORY Final Result Performing Organization Address City/[facility]/ZIP Co de Phone Number [facility] [address] [place] [address], * TROPONIN, QUANT (01/28/2025 1:28 AM CDT) TROPONIN I HIGH SENSITIVITY 12 0 - 76 ng/L 01/28/2025 2:20 AM CDT [facility] 01/28/2025 1:28 AM CDT us Rosario Yanez DO LABORATORY Final Result [facility] [place] [address], * Colonoscopy (07/14/2023 11:45 AM CDT) Bryce Tran [facility] GI PROCEDURE ORDERAB LES Final Result * CT ABD+PEL WWO CON (10/01/2022 2:31 PM ROLLER SKATER) Anatomical Region Laterality Modality Abdomen Computed Tomogra phy 10/03/2022 10:4 4 AM ROLLER SKATER Impressions 10/03/2022 10:51 AM ROLLER SKATER Impression: 1. A 4 cm solid enhancing mass lesion is again seen involving the upper pole of the right kidney. 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 2. No suspicious lymphadenopathy is identified. Referred By: ROSARIO GALVAN Interpreted By: Nolberto Zimmerman MD, 10/03/2022 10:44 AM Narrative 10/03/2022 10:51 AM ROLLER SKATER Examination: CT ABD+PEL WWO CON Clinical Information: [...] No suspicious lymphadenopathy is identified. Referred By: ORSARIO GALVAN Interpreted By: Nolberto Zimmerman MD, 10/03/2022 10:44 AM Rosario Galvan MD CT Final Result * (ABNORMAL) HEMOGLOBIN, GLYCOSYLATED (06/24/2022 9:18 AM CDT) HGB A1C 6.9(H) <5.7 % 06/24/2022 10:[address] [facility] ESTIMATED AVG GLUCOSE 151(H) 74 - 114 MG/DL 06/24/2022 10:[address] [facility] 06/24/2022 9:18 AM CDT Dinesh Sharif MD LABORATORY Final Res ult 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
--- OUTSIDE RECORDS SUMMARY | 2025-04-19 09:16 | XMS_ITS | Encounter Summary ---
Author Organization [facility] Address [address] [place] [address] Care Team Providers Care Electronic Equipment Maint Tech Name Role Phone Eran Masterson MD Primary Care Provider [phone] Yvonne Mosqueda MD Unavailable [facility] hospitalSohail sher MD Unavailable Unavail able Hailee Watts MD Unavailable [phone] Monica Gauthier MD, Oscar Unavailable [phone] Jori MATHIAS MD, Courtney Unavailable [phone] Noemi Huynh MD Unavailable Mario Salazar MD Unavailable [phone] Marti Arreola RN Unavailable Unavailable Encounter Details Date Type Department Care Team (Late st Contact Info) Description 01/01/[address] [facility] Anesthesia [address] [place] [address] Mimi Roberts Anesthesia Record Procedure Summary Procedure [...] by Marquita Silva RN 05/19/22 0000 by Tahir Pride RN Peripheral IV Placement Date: 01/02/22; [...] By: Capnography, Auscultation, Chest Rise; Placed By: DIE SINKER; Removal Date: 01/02/22; Removal Time: 16501/02/22 1523 [...] Comments:Past smoker, regina hooper uses smokeless tobacco ([place]). 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 [address] [place] [address] Yvonne Mosqueda MD [address] [place] [address] documented as of this encounter Goals Goal [...] documented as of this encounter Care Teams Electronic Equipment Maint Tech Relationship Specialty Start Date End Date Eran Masterson MD [address] [place] [address] PCP - General FAMILY PRACTICE 07/03/16 Yvonne Mosqueda MD [address] [place] [address] CLINICAL CARDIAC ELECTROPHYSIOLOGY 07/03/16 Sohail Stafford MD [address] [place] [address] CARDIOVASCULAR DISEASE 11/03/16 11/12/24 Hailee Watts MD [address] [place] [address] ENDOCRINOLOGY 09/13/19 05/18/22 Oscar Anderson MD [facility] DEPT OF SURGERY - NEUROSURGERY [address] [place] [address] NEUROLOGICAL SURGERY 11/26/20 11/22/22 Theresa Hsieh III, MD [facility] DEPT OF SURGERY - NEUROSURGERY [address] [place] [address] Consulting Physician UROLOGY 01/22/21 11/22/22 Noemi Huynh MD [address] [place] [id number] OTOLARYNGOLOGY 01/22/21 11/22/22 Mario Salazar MD [address] [place] [phone] UROLOGY 11/23/22 Marti Arreola RN Registered Nurse CARE MANAGEMENT 01/29/25 02/26/25 documented as of this encounter
[2025-04-19 10:06] LABS: Hemoglobin A1C 6.9 % (<5.7)
[2025-04-19 10:52] LABS: Anion Gap 10 mmol/L (4-12); Blood Urea Nitrogen 25 mg/dL (9-20); Calcium 8.5 mg/dL (8.4-10.2); Carbon Dioxide 22 mmol/L (22-30); Chloride 104 mmol/L (98-107); Estimated Glomerular Filt Rate 48; Glucose 139 mg/dL (65-110); Osmolality Calculated 288 mOsm/kg (285-295); Potassium 4.1 mmol/L (3.4-5.0); Sodium 136 mmol/L (137-145)
== END 2025-04-19 09:09 | disposition home or self-care (01) ==
PROVIDERS: PCP Family Medicine; Visit Provider Family Medicine
DX: E11.9 Type 2 diabetes mellitus without complications (principal); I48.19 Other persistent atrial fibrillation; I87.2 Venous insufficiency (chronic) (peripheral)
CPT/HCPCS: 36415; 80048; 83036

== ENCOUNTER 2025-05-25 11:42 | Outpatient (CLI) | payer MEDICARE, SELFPAY ==
--- NOTE | ~2025-05-25 | XR_ITS ---
EXAM/ PROCEDURE: XR shoulder RT min 2V - 05/25/2025 11:50 CDT HISTORY: 79 years old Male with Chronic Rt. shoulder pain COMPARISON: None available TECHNIQUE: Three view(s) FINDINGS/ IMPRESSION: There are no fractures or dislocations.Joint space narrowing, subchondral sclerosis, subchondral cyst formation and osteophyte formation, compatible with mild osteoarthritis. Reviewed, dictated and finalized at location N.
== END 2025-05-25 11:43 | disposition home or self-care (01) ==
LOC: CHSIMG 11:44
PROVIDERS: PCP Family Medicine; Visit Provider Family Medicine
DX: M25.511 Pain in right shoulder (principal); M89.8X1 Other specified disorders of bone, shoulder
CPT/HCPCS: 73030

== ENCOUNTER 2025-07-04 07:11 | Outpatient (NON) | payer MEDICARE, SELFPAY ==
[2025-07-04 07:26] LABS: Hematocrit 35.6 % (37.0-46.0); Hemoglobin 11.3 g/dL (12.4-15.3); Mean Corpuscular HGB Conc 31.7 g/dL (32-36); Mean Corpuscular Hemoglobin 27.0 pg (27.0-31.0); Mean Corpuscular Volume 85.0 fL (78.0-102.0); Platelet Count Result 186 K/mm3 (150-420); Red Blood Count 4.19 M/mm3 (4.70-6.10); White Blood Count 4.3 K/mm3 (4.8-10.8)
[2025-07-04 07:40] LABS: Alanine Aminotransferase 13 U/L (6-50); Albumin Level 4.0 g/dL (3.5-5.1); Alkaline Phosphatase 105 U/L (38-126); Anion Gap 11 mmol/L (4-12); Aspartate Amino Transferase 28 U/L (17-59); Bilirubin,Total 0.7 mg/dL (0.2-1.3); Blood Urea Nitrogen 41 mg/dL (9-20); Calcium 9.2 mg/dL (8.4-10.2); Carbon Dioxide 27 mmol/L (22-30); Chloride 100 mmol/L (98-107); Estimated Glomerular Filt Rate 30; Glucose 124 mg/dL (65-110); Osmolality Calculated 297 mOsm/kg (285-295); Potassium 4.1 mmol/L (3.4-5.0); Sodium 138 mmol/L (137-145); Total Protein 7.6 g/dL (6.3-8.2)
== END 2025-07-04 07:12 | disposition home or self-care (01) ==
LOC: CHSLAB 07:13
PROVIDERS: PCP Family Medicine; Visit Provider Family Medicine
DX: I67.82 Cerebral ischemia (principal); G31.1 Senile degeneration of brain, not elsewhere classified; I87.2 Venous insufficiency (chronic) (peripheral)
CPT/HCPCS: 36415; 80053; 85027

== ENCOUNTER 2025-07-22 11:33 | Emergency (ER) | payer MEDICARE, SELFPAY ==
--- OUTSIDE RECORDS SUMMARY | 2025-03-15 09:00 | XMS_ITS ---
Author Organization [facility] Address [address] [place], [place] [address] Care Team Providers Care Benefits Officer Name Role Phone JOVI PADRON Unavailable [phone] David Reyes Unavailable Unavailable Allergies Allergen (clinical drug ingredient) Drug/Non Drug Allergy documented on EMR Reaction Allergy Type Onset Date Status cefazolin ceFAZolin Unknown Drug Allergy Active REASON FOR VISIT *General care Medications Medication SIG (Take, Route, Frequency, Duration) Notes Start Date End Date Status Betamethasone Valerate 0.1 % External; D uration: 10 Days Active Atorvastatin Calcium 20 MG Oral; Duration: 30 Days Active Omeprazole 40 MG Oral; Duration: 30 Days Active QUEtiapine Fumarate 25 MG Oral; Duration: 30 Days Active Basaglar KwikPen 100 UNIT/ML Subcutaneou s; Duration: 22 Days Active Furosemide 80 MG Oral; Duration: 30 Days Active Citalopram Hydrobromide 40 MG Oral; Duration: 30 Days Acti ve Levothyroxine Sodium 50 MCG Oral; Duration: 30 Days Active Gabapentin 600 MG Oral; Duration: 30 Days Active Carvedilol 12.5 MG Oral; Duration: 30 Days Active Social History Tobacco Use: Social History Observation Description Date Details (start date - stop date) Never Smoker NA - NA Tobacco Control (Standard) Question Answer Notes Tobacco use: Nonsmoker Vital Signs Height 65 in 03/15/2025 Weight 211 lbs 03/15/2025 BMI 35.11 kg/m2 03/15/2025 Height-cm 165.1 cm 03/15/2025 Weight-kg 95.71 kg 03/15/2025 Encounters Encounter Location Date Provider Diagnosis [address] [id number] 03/15/2025 JOVI PADRON Ingrowing nail L60.0 ; Tinea unguium B35.1 ; Atherosclerosis of [place] arteries of extremities with intermittent claudication, bilateral [...] to pink healthy tissue 03/15/2025 Atherosclerosis of [place] arteries of extremities with intermittent claudication, bilateral [...] length to pink healthy tissue Atherosclerosis of [place] ar teries of extremities with intermittent claudication, [...] physician for potential diuretic management if needed. Progress Notes * Jose Daniel CHINDOB: 5 (79 yo M)Acc No.[id number]:03/15/2025 Progress Notes Patient: Jose Daniel FONTANEZ Provider: Estrada PADRON :1945 A ge:79 Y S ex:Male Date:03/15/2025 Address:[address] [place] [address] Subjective: * Chief Complaints: * 1 . *General care. * HPI: H PI: General care P atient presents to the office for diabetic foot care. Patient states that their nails are thickened, elongated and painful. Patient states that it is aggravated by shoe gear. Onset is gradual., Patient denies taking blood thinners., Date last seen by Dr. Reyes was 02/2025., Initials [facility]. * ROS: G eneral / Constitutional: [...] loss of strength, pain. * Medical History: A rtificial joint, Cancer, Leg/Feet cramps, Open Sores, Diabetic. * Surgical History: D enies Past Surgical History. * Hospitalization/Major Diagno stic Procedure: D enies Past Hospitalization. * Family History: N o Family History documented.. * Social History: T obacco Use: T obacco Control (Standard) T obacco use: N onsmoker. * Medications: T aking Carvedilol 12.5 MG Tablet Oral , Taking Gabapentin 600 MG Tablet Oral , Taking Levothyroxine Sodium 50 MCG Tablet Oral , Taking Citalopram Hydrobromide 40 MG Tablet Oral , Taking Furosemide 80 MG Tablet Oral , Taking Omeprazole 40 MG Capsule Delayed Release Oral , Taking Atorvastatin Calcium 20 MG Tablet Oral , Taking Betamethasone Valerate 0.1 % Cream External , Taking QUEtiapine Fumarate 25 MG Tablet Oral , Taking Basaglar KwikPen 100 UNIT/ML Solution Pen-injector Subcutaneous , Medication List reviewed and reconciled with the patient * Allergies: c eFAZolin: Allergy. Objective: * Vitals: W t: 211 lbs, [...] unguium - B35.1 ?3. A therosclerosis of [place] arteries of extremities with intermittent claudication, bilateral [...] pink healthy tissue? 3. A therosclerosis of [place] arteries of extremities with intermittent claudication, bilateral [...] Immunization record has been reviewed and updated. * Billing Information: * Visit Code: 18102 Office Visit, New Pt., Level 3. * Procedure Codes: * Electronic signature of ALFRED PADRON DPM on 07/22/2025 at 12:00 PM CDT Sign off status: Pending * Provider: Estrada PADRON Date: 0 03/15/2025 Generated for Raj bowling/Evy/Scout on: 1 12:00 PM CDT History and Physical Notes * HPI (History [...]
--- OUTSIDE RECORDS SUMMARY | 2025-05-17 05:10 | XMS_ITS ---
Author Organization [facility] Address [address] [place], [place] [id number] Care Team Providers Care Hazmat Technician Name Role Phone JOVI PADRON Unavailable [phone] David Reyes Unavailable Unavailable REASON FOR VISIT *General care Encounters Encounter Location Date Provider Diagnosis [address] [id number] 05/17/2025 JOVI PADRON Plan Of Treatment No Information Progress Notes * LILAJose Daniel CHARLESDOB: 5 (79 yo M)Acc No.[id number]:05/17/2025 Patient: Jose Daniel FONTANEZ Provider: Estrada PADRON :1945 A ge:79 Y S ex:Male Date:05/17/2025 Address:[address] [place], [place] [id number] Subjective: * Chief Complaints: * 1 . *General care. * Medical History: Objective: * Vitals: Assessment: Plan: * Treatment: * Billing Information: * Visit Code: * Procedure Codes: * Electronic signature of ALFRED PADRON DPM on 07/22/2025 at 12:00 PM CDT Sign off status: Pending * Provider: Estrada PADRON Date: 0 05/17/2025 Generated for Raj bowling/Evy/Tiagoitting on: 1 12:00 PM CDT
[2025-07-22] VITALS (13 sets, daily range): BP systolic 120–132; BP diastolic 57–66; PULSE 60; RESP 16; TEMP 36.5; O2SAT 97–100
--- NOTE | ~2025-07-22 | US_ITS ---
RIGHT LOWER EXTREMITY VENOUS DUPLEX Clinical History: pain and swelling COMPARISON: 02/27/2025 TECHNIQUE: Grayscale, color, duplex/spectral Doppler sonography right leg FINDINGS: Right leg common femoral, femoral, popliteal, and calf veins compressible and color Doppler patent. Normal augmentation with distal compression. No internal echoes. IMPRESSION: 1. No right leg DVT. Reviewed, dictated and finalized at location R. IMPRESSION: 1. No right leg DVT.
--- NOTE | 2025-07-22 11:42 | ED.LOWEXIN ---
HPI - Extremity Injury (Lower) General Chief Complaint: Extremity Injury, Lower Stated Complaint: right leg pain/swelling Time Seen by Provider: 07/22/25 11:36 History of Present Illness HPI Narrative: 79-year-old male with a past medical history including CHF, severe dementia, diabetes. Patient presents to the emergency department today with right leg pain and swelling. Denies any traumatic injuries. Is able to ambulate and pivot. Denies any falls. States the pain started today but EMS report from nursing staff states that has been going on for longer. Mild redness to the right lower extremity but no weepage or drainage. No significant pitting edema or swelling. Able to wiggle the toes and move the entirety of the extremity without pain but has pain with palpation of the posterior calf. Was otherwise in his normal state of health per senior care report. Patient denies any chest pain, shortness a breath, fever, chills, abdominal pain, loss of consciousness or falls. Related Data Allergies Allergy/AdvReac Type Severity Reaction Status Date / Time cefazolin Allergy Unknown Verified 07/22/25 11:47 Cephalosporins Allergy Unknown Verified 07/22/25 11:47 Review of Systems Review of Systems: As reviewed above in HPI Exam Narrative: GENERAL: [Well-appearing, well-nourished, and in no acute distress.] HEAD: [Normocephalic, atraumatic.] EYES: [PERRLA and EOMI.] ENT: Nares clear, no rhinorrhea or epistaxis. Mucous membranes moist. NECK: Supple. CHEST: [Clear to auscultation. No respiratory distress.] HEART: [Regular rate and rhythm]. No murmur heard. [Normal peripheral pulses.] ABDOMEN: [Soft, nondistended], [nontender], [No rigidity or guarding] EXTREMITIES: No calf asymmetry but he does have pain with tenderness in the posterior right calf with no palpable edema. No pain with range of motion of the hip knee or ankle. Plantar and ankle dorsiflexion 5/5 bilaterally. Able to wiggle the toes without any discoloration of the digits. Mild redness to the right anterior sheets but no pitting edema, purulence, drainage, warmth or tenderness. SKIN: Warm, dry, no rash. NEURO: Moving all extremities without difficulty or asymmetry. Answering questions appropriately. Alert and oriented at baseline PSYCH: [Normal mood and affect.] Course Vital Signs Vital signs: Vital Signs Temperature 36.5 C 07/22/25 11:42 Pulse Rate 60 07/22/25 11:42 Respiratory Rate 16 07/22/25 11:42 Blood Pressure 132/66 07/22/25 11:42 Pulse Oximetry 99 07/22/25 11:42 Oxygen Delivery Room Air 07/22/25 11:42 Temperature 36.5 C 07/22/25 11:42 Pulse Rate 60 07/22/25 11:42 Respiratory Rate 16 07/22/25 14:02 Blood Pressure 127/62 07/22/25 14:02 Pulse Oximetry 97 07/22/25 14:02 Oxygen Delivery Room Air 07/22/25 11:42 MDM - Extremity Injury (Lower) MDM Narrative Medical decision making narrative: 79-year-old male with a past medical history including CHF, severe dementia, diabetes. Patient presents to the emergency department today with right leg pain and swelling. Denies any traumatic injuries. Is able to ambulate and pivot. Denies any falls. States the pain started today but EMS report from nursing staff states that has been going on for longer. Mild redness to the right lower extremity but no weepage or drainage. No significant pitting edema or swelling. Able to wiggle the toes and move the entirety of the extremity without pain but has pain with palpation of the posterior calf. Was otherwise in his normal state of health per senior care report. Patient denies any chest pain, shortness a breath, fever, chills, abdominal pain, loss of consciousness or falls. No calf asymmetry but he does have pain with tenderness in the posterior right calf with no palpable edema. No pain with range of motion of the hip knee or ankle. Plantar and ankle dorsiflexion 5/5 bilaterally. Able to wiggle the toes without any discoloration of the digits. Mild redness to the right anterior sheets but no pitting edema, purulence, drainage, warmth or tenderness. Patient is hemodynamically stable with normal vital signs. Low suspicion DVT and no clinical signs of cellulitis. Will obtain DVT rule out ultrasound and basic laboratory studies. Ultrasound negative for DVT. Laboratory studies at baseline without any acute derangements. Safe for discharge back to facility at this time. Medical Records Attestation: I reviewed the patient's medical records. Lab Data Attestation: I reviewed the patient's lab results. 07/22/25 12:27 07/22/25 12:27 Labs: Lab Results 07/22/25 Range/Units 12:27 WBC 5.1 (4.5-10.0) K/mm3 RBC 4.05 L (4.6-6.20) M/mm3 Hgb 11.0 L (14.0-18.0) g/dL Hct 33.5 L (42.0-52.0) % MCV 82.7 (80-100) fl MCH 27.2 (26-34) pg MCHC 32.8 (32-36) g/dl RDW 13.6 (11.5-14.5) % Plt Count 156 (150-375) k/mm3 MPV 10.0 (7.4-10.4) fl Immature Gran % (Auto) 1.0 H (0-0.5) % Neut % (Auto) 53.7 (45.5-73.1) % Lymph % (Auto) 28.4 (18.3-44.2) % [place] % (Auto) 9.8 H (2.6-8.5) % Eos % (Auto) 5.9 H (0-4.4) % Baso % (Auto) 1.2 (0.2-1.2) % Lymph # (Auto) 1.45 (0.9-3.2) K/mm3 [place] # (Auto) 0.5 (0.1-0.6) K/mm3 Eos # (Auto) 0.3 (0-0.3) K/mm3 Baso # (Auto) 0.1 (0.0-0.1) K/mm3 Abs Immat Gran (auto) 0.05 H (0.00-0.031) K/mm3 Absolute Neuts (auto) 2.7 (1.3-6.7) K/mm3 Absolute Nucleated RBC 0.000 (0.0-0.012) K/mm3 Nucleated RBC % 0.0 (0.0-0.2) % PT 14.1 (11.1-14.7) Seconds INR 1.1 APTT 32.2 (22.3-36.8) Seconds Sodium 135 L (137-145) mmol/L Potassium 3.6 (3.4-5.0) mmol/L Chloride 95 L (98-107) mmol/L Carbon Dioxide 33 H (22-30) mmol/L Anion Gap 7 (4-12) mmol/L BUN 42 H (9-20) mg/dL Creatinine 1.86 H (0.7-1.3) mg/dL Estim Creat Clear Calc 34 ml/min Estimated GFR 35 L (59 - ) Glucose 171 H (65-110) mg/dL Calcium 8.6 (8.4-10.2) mg/dL Imaging Data Attestation: I personally reviewed and interpreted this imaging study as follows: My impression: Impressions Venous Doppler Study 07/22/25 12:32 IMPRESSION: 1. No right leg DVT. Discharge Plan Discharge Clinical Impression: Pain of right calf Patient Disposition: Home Condition: Stable Instructions: Antibiotic Form Additional Instructions: Ultrasound shows no evidence of deep venous thrombosis. Likely muscle spasm or strain. No signs of infection. Laboratory studies at baseline without any acute changes. Follow-up with regular primary care provider. Tylenol and ibuprofen for any aches or pains. Return with any emergent concerns. Patient Language: [place] Islander Follow-up/Referrals: David Reyes MD [Primary Care Provider, Internal Medicine] Time of Disposition: 13:14
--- OUTSIDE RECORDS SUMMARY | 2025-07-22 12:00 | XMS_ITS | Encounter Summary ---
Author Organization [facility] Address [address] [place] [address] Care Team Providers Care Shaper Set Up Operator Name Role Phone Eran Masterson MD Primary Care Provider [phone] Yvonne Mosqueda MD Unavailable [facility] hospitalS[facility]ail sher MD Unavailable Unavail able Hailee Watts MD Unavailable [phone] Monica Gauthier MD, Oscar Unavailable [phone] Jori MATHIAS MD, Courtney Unavailable [phone] Noemi Huynh MD Unavailable Mario Salazar MD Unavailable [phone] Marti Arreola RN Unavailable Unavailable Encounter Details Date Type Department Care Team (Late st Contact Info) Description 01/01/2022 Hospital Orders Only [facility] Anesthesia [address] [place] [address] Mimi Roberts Anesthesia Record Procedure Summary Procedure [...] By: Capnography, Auscultation, Chest Rise; Placed By: CONTOUR PATH TAPE MILL OPERATOR; Removal Date: 01/02/22; Removal Time: 16501/02/22 1523 [...] Comments:Past smoker, regina hooper uses smokeless tobacco ([place]). Alcohol Use Standard Drinks/Week Comments No 0 [...] Assessment Author Status No 09/08/2021 7:06 PM CORRECTIONAL CORPORAL Activ e * RETIRED Are you blind or do you have serious difficulty seeing, even when wearing glasses? Answer Date of Assessment Author Status No 09/08/2021 7:06 PM CORRECTIONAL CORPORAL Activ e * Do you have serious [...] Assessment Author Status Yes 09/08/2021 7:06 PM CORRECTIONAL CORPORAL Zoya Woodruff RN Active * Calculated C-SSRS Risk Score (Lifetime/Recent) Answer Date of Assessment Author Status No Risk Indicated 01/02/2022 11:13 AM Timothy Rodriguez RN Active * [place] Suicide Severity Rating Scale (Screener/Recent Self-Report) Question Answer Date of Assessment Author Status 1. Wish to be (Past 1 Month) No 01/02/2022 11:13 AM Isabela Rodriguez RN Ac tive 2. Non-Specific Active Suicidal Thoughts (Past 1 Month) No 01/02/2022 11:13 AM Isabela Rodriguez RN Ac tive 6. Suicidal Behavior (Lifetime) No 01/02/2022 11:13 AM Isabela Rodriguez RN Ac tive documented as of this encounter Mental Status * Question Answer Entry Date Author Status Because of a physical, mental, or emotional condition, do you have serious difficulty concentrating, remembering, or making decisions? No 01/03/2022 2:00 AM Yefri Gross RN Active * Because of a physical, mental, or emotional condition, do you have serious difficulty concentrating, remembering, or making decisions? Answer Entry Date Author Status No 09/08/2021 7:06 PM Zoya Parisi RN Active documented in this encounter Plan of Treatment Upcoming Encounters Date Type Department Care Team (Late st Contact Info) Description 10/05/2025 1:30 AM CORRECTIONAL CORPORAL Allied Health/Nurse Visit [facility] [address] [place] [address] Yvonne Mosqueda MD [address] [place] [address] 11/21/2025 12:30 PM CORRECTIONAL CORPORAL Allied Health/Nurse Visit [facility] [address] [place] [address] Jimena Valle, DRUM TESTER [address] [facility]. [address] [place] [address] 11/21/2025 1:00 PM CORRECTIONAL CORPORAL Office Visit [facility] [address] [place] [address] Jimena Valle, DRUM TESTER [address] [facility] [address] [place] [id number] documented as of this encounter Goals Goal Patient Goal Type Associated Problems Recent Progress Patient-Stated? 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 COVID-19 Rule Out 06/21/2022 06/21/2022 06/21/2022 9:41 PM CDT documented as of this encounter Care Teams Shaper Set Up Operator Relationship Specialty Start Date End Date Eran Masterson MD [address] [facility] [place] [address] PCP - General FAMILY PRACTICE 07/03/16 Yvonne Mosqueda MD [address] [place] [address] CLINICAL CARDIAC ELECTROPHYSIOLOGY 07/03/16 Sohail Stafford MD [address] [place] [address] CARDIOVASCULAR DISEASE 11/03/16 11/12/24 Hailee Watts MD [address] [place] [address] ENDOCRINOLOGY 09/13/19 05/18/22 Oscar Anderson MD [facility] DEPT OF SURGERY - NEUROSURGERY [id number] [place] [address] NEUROLOGICAL SURGERY 11/26/20 11/22/22 Theresa Hsieh III, MD [facility] DEPT OF SURGERY - NEUROSURGERY [address] [place] [address] Consulting Physician UROLOGY 01/22/21 11/22/22 Noemi Huynh MD [address] [place] [address] OTOLARYNGOLOGY 01/22/21 11/22/22 Mario Salazar MD [address] [place] [phone] UROLOGY 11/23/22 Marti Arreola RN Registered Nurse CARE MANAGEMENT 01/29/25 02/26/25 documented as of this encounter
--- OUTSIDE RECORDS SUMMARY | 2025-07-22 12:00 | XMS_ITS | Encounter Summary ---
Author Organization [facility] Address [address] [place] [address] Care Team Providers Care Sales Development Associate Name Role Phone Eran Masterson MD Primary Care Provider [phone] Yvonne Mosqueda MD Unavailable Sohail Stafford MD Unavailable Unavail able Hailee Watts MD Unavailable [phone] Monica Gauthier MD, Devin Unavailable [phone] Jori MATHIAS MD, Courtney Unavailable [phone] Noemi Huynh MD Unavailable Mario Salazar MD Unavailable [phone] Marti Arreola RN Unavailable Unavailable Encounter Details Date Type Department Care Team (Late st Contact Info) Description 01/06/2022 Hospital Follow-up Call [facility] [address] [place] [address] Davina Walters, RN Social History Tobacco Use Types Packs/Day Years Used Date Smoking Tobacco: Former Cigarettes 3 3 1 11/09/1962 - 09/08/1966 Smokeless Tobacco: Former Chew Quit: 09/08/1963 Comments:Past smoker, regina hooper uses smokeless tobacco ([place]). Alcohol Use Standard Drinks/Week Comments No 0 [...] Assessment Author Status No 01/03/2022 2:00 AM SANDYT Yefri Benitez RN Active * Because of [...] st Contact Info) Description 10/05/2025 1:30 AM NETWORK SYSTEMS INTEGRATOR Allied Health/Nurse Visit [facility] [address] [place] [address] Yvonne Mosqueda MD [address] [place] [address] 11/21/2025 12:30 PM NETWORK SYSTEMS INTEGRATOR Allied Health/Nurse Visit [facility] [address] [place] [address] Jimena Valle NP [address] [address] 11/21/2025 1:00 PM NETWORK SYSTEMS INTEGRATOR Office Visit [facility] [address] [place] [address] Jimena Valle NP [address] [phone] documented as of this encounter Goals Goal [...] documented as of this encounter Care Teams Sales Development Associate Relationship Specialty Start Date End Date Eran Masterson MD [address] [facility] [place] [address] PCP - General FAMILY PRACTICE 07/03/16 Yvonne Mosqueda MD [address] [place] [address] CLINICAL CARDIAC ELECTROPHYSIOLOGY 07/03/16 Sohail Stafford MD [address] [place] [address] CARDIOVASCULAR DISEASE 11/03/16 11/12/24 Hailee Watts MD [address] [place] [address] ENDOCRINOLOGY 09/13/19 05/18/22 Oscar Anderson MD [facility] DEPT OF SURGERY - NEUROSURGERY [address] [place] [address] NEUROLOGICAL SURGERY 11/26/20 11/22/22 Theresa Hsieh III, MD [facility] DEPT OF SURGERY - NEUROSURGERY [address] [place] [address] Consulting Physician UROLOGY 01/22/21 11/22/22 Noemi Huynh MD [address] [place] [address] OTOLARYNGOLOGY 01/22/21 11/22/22 Mario Salazar MD [address] [place] [phone] UROLOGY 11/23/22 Marti Arreola RN Registered Nurse CARE MANAGEMENT 01/29/25 02/26/25 documented as of this encounter
--- OUTSIDE RECORDS SUMMARY | 2025-07-22 12:00 | XMS_ITS | Encounter Summary ---
Author Organization [facility] Address [address] [place] [address] Care Team Providers Care Junior Programmer Analyst Name Role Phone Eran Masterson MD Primary Care Provider [phone] Yvonne Mosqueda MD Unavailable [facility] hospitalS[facility]ail sher MD Unavailable Unavail able Hailee Watts MD Unavailable [phone] Loni Ang MD Unavailable Monica Gauthier MD, Devin Unavailable [phone] Jori MATHIAS MD, Courtney Unavailable [phone] Noemi Huynh MD Unavailable Mario Salazar MD Unavailable [phone] Marti Arreola RN Unavailable Unavailable Encounter Details Date Type Department Care Team (Late st Contact Info) Description 12/11/2017 Abstract [facility] CON[facility] [address] [place] [address] , Leeanna Chavarria MD Social History Tobacco Use Types Packs/Day Years Used Date Smoking Tobacco: Former Smokeless Tobacco: Former Chew Comments:Past smoker, regina hooper uses smokeless tobacco ([place]). Alcohol Use Standard Drinks/Week Comments No 0 [...] Upcoming Encounters Date Type Department Care Team ([facility] st Contact Info) Description 10/05/2025 1:30 AM STORAGE ADMINISTRATOR Allied Health/Nurse Visit [facility] [address] [place] [address] Yvonne Mosqueda MD [address] [place] [address] 11/21/2025 12:30 PM STORAGE ADMINISTRATOR Allied Health/Nurse Visit [facility] [address] [place] [address] Jimena Valle EVAPORATOR OPERATOR MOLASSES [address] [facility] [place] [address] 11/21/2025 1:00 PM STORAGE ADMINISTRATOR Office Visit [facility] [address] [place] [address] Jimena Valle, EVAPORATOR OPERATOR MOLASSES [address] [facility] [place] [address] documented as of this encounter Visit Diagnoses [...] Rule Out 08/23/2021 08/23/2021 08/23/2021 7:52 PM STORAGE ADMINISTRATOR COVID-19 Rule Out 10/04/2021 10/04/2021 10/04/2021 8:30 PM STORAGE ADMINISTRATOR COVID-19 Rule Out 11/08/2021 11/08/2021 11/08/2021 6:51 PM STORAGE ADMINISTRATOR COVID-19 Rule Out 12/13/2021 12/13/2021 12/13/2021 7:13 PM CDT COVID-19 Rule Out 12/30/2021 12/30/2021 12/30/2021 8:06 PM CDT COVID-19 Rule Out 06/21/2022 06/21/2022 06/21/2022 9:41 PM CDT documented as of this encounter Care Teams Junior Programmer Analyst Relationship Specialty Start Date End Date Eran Masterson MD [address] [facility] [place] [phone] PCP - General FAMILY PRACTICE 07/03/16 Yvonne Mosqueda MD [address] [place] [address] CLINICAL CARDIAC ELECTROPHYSIOLOGY 07/03/16 Sohail Stafford MD [address] [place] [address] CARDIOVASCULAR DISEASE 11/03/16 11/12/24 Hailee Watts MD [address] [place] [address] ENDOCRINOLOGY 09/13/19 05/18/22 Loni Ang MD [address] [place] [address] INTERNAL MEDICINE 09/13/19 11/25/20 Oscar Anderson MD [facility] DEPT OF SURGERY - NEUROSURGERY [address] [place] [address] NEUROLOGICAL SURGERY 11/26/20 11/22/22 Theresa Hsieh III, MD [facility] DEPT OF SURGERY - NEUROSURGERY [address] [place] [address] Consulting Physician UROLOGY 01/22/21 11/22/22 Noemi Huynh MD [address] [place] [address] OTOLARYNGOLOGY 01/22/21 11/22/22 Mario Salazar MD [address] [place] [phone] UROLOGY 11/23/22 Marti Arreola RN Registered Nurse CARE MANAGEMENT 01/29/25 02/26/25 documented as of this encounter
--- OUTSIDE RECORDS SUMMARY | 2025-07-22 12:00 | XMS_ITS | Patient Health Record ---
Author Organization [facility] Address [address] [place], [place] [address] Care Team Providers Care Rolling Mill Plugger Name Role Phone JOVI PADRON Unavailable [phone] David Reyes Unavailable Unavailable Allergies Allergen (clinical drug ingredient) Drug/Non Drug Allergy documented on EMR Reaction Allergy Type Onset Date Status cefazolin ceFAZolin Unknown Drug Allergy Active Reason For Referral No Information Medications Medication SIG (Take, Route, Frequency, Duration) Notes Start Date End Date Status Betamethasone Valerate 0.1 % External; D uration: 10 Days Active Atorvastatin Calcium 20 MG Oral; Duration: 30 Days Active Omeprazole 40 MG Oral; Duration: 30 Days Active Furosemide 80 MG Oral; Duration: 30 Days Active QUEtiapine Fumarate 25 MG Oral; Duration: 30 Days Active Basaglar KwikPen 100 UNIT/ML Subcutaneou s; Duration: 22 Days Active Citalopram Hydrobromide 40 MG Oral; [...] Answer Notes Tobacco use: Nonsmoker Vital Signs Height-cm 165.1 cm 03/15/2025 Weight-kg 95.71 kg 03/15/2025 Height 65 in 03/15/2025 Weight 211 lbs 03/15/2025 BMI 35.11 kg/m2 03/15/2025 Encounters Encounter Location Date Provider Diagnosis [address] [id number] 03/15/2025 JOVI PADRON Ingrowing nail L60.0 ; Tinea unguium B35.1 ; 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, bilateral [...] to pink healthy tissue 03/15/2025 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
--- OUTSIDE RECORDS SUMMARY | 2025-07-22 12:00 | XMS_ITS | Encounter Summary ---
Author Organization [facility] Address [facility] [place] [address] Care Team Providers Care Supervisory Aide Name Role Phone Eran Masterson MD Primary Care Provider [phone] Yvonne Mosqueda MD Unavailable Sohail Stafford MD Unavailable Unavail able Hailee Watts MD Unavailable [phone] Loni Ang MD Unavailable Monica Gauthier MD, Devin Unavailable [phone] Jori MATHIAS MD, Courtney Unavailable [phone] Noemi Huynh MD Unavailable Mario Salazar MD Unavailable [phone] Marti Arreola RN Unavailable Unavailable Encounter Details Date Type Department Care Team (Late st Contact Info) Description 03/04/2019 Abstract [facility] CONVERSION [address] [place] [address] , Generic Conversion, Social History Tobacco Use Types Packs/Day Years Used Date Smoking Tobacco: Former Smokeless Tobacco: Former Chew Comments:Past smoker, regina hooper uses smokeless tobacco ([place]). Alcohol Use Standard Drinks/Week Comments No 0 [...] Upcoming Encounters Date Type Department Care Team ([facility] st Contact Info) Description 10/05/2025 1:30 AM DOG FOOD DOUGH MIXER Allied Health/Nurse Visit [facility] [address] [place] [address] Yvonne Mosqueda MD [address] [place] [address] 11/21/2025 12:30 PM DOG FOOD DOUGH MIXER Allied Health/Nurse Visit [facility] [address] [place] [address] Jimena Valle SUPERVISOR LABOR GANG [address] [facility]. [address] [place] [address] 11/21/2025 1:00 PM DOG FOOD DOUGH MIXER Office Visit [facility] [address] [place] [address] Jimena Valle, SUPERVISOR LABOR GANG [address] [facility] [address] [place] [address] documented as of this encounter Visit Diagnoses [...] Rule Out 08/23/2021 08/23/2021 08/23/2021 7:52 PM DOG FOOD DOUGH MIXER COVID-19 Rule Out 10/04/2021 10/04/2021 10/04/2021 8:30 PM DOG FOOD DOUGH MIXER COVID-19 Rule Out 11/08/2021 11/08/2021 11/08/2021 6:51 PM DOG FOOD DOUGH MIXER COVID-19 Rule Out 12/13/2021 12/13/2021 12/13/2021 7:13 PM CDT COVID-19 Rule Out 12/30/2021 12/30/2021 12/30/2021 8:06 PM CDT COVID-19 Rule Out 06/21/2022 06/21/2022 06/21/2022 9:41 PM CDT documented as of this encounter Care Teams Supervisory Aide Relationship Specialty Start Date End Date Eran Masterson MD [address] [facility] [place] [phone] PCP - General FAMILY PRACTICE 07/03/16 Yvonne Mosqueda MD [address] [place] [address] CLINICAL CARDIAC ELECTROPHYSIOLOGY 07/03/16 Sohail Stafford MD [address] [place] [address] CARDIOVASCULAR DISEASE 11/03/16 11/12/24 Hailee Watts MD [address] [place] [address] ENDOCRINOLOGY 09/13/19 05/18/22 Loni Ang MD [address] [place] [address] INTERNAL MEDICINE 09/13/19 11/25/20 Oscar Anderson MD [facility] DEPT OF SURGERY - NEUROSURGERY [address] [place] [address] NEUROLOGICAL SURGERY 11/26/20 11/22/22 Theresa Hsieh III, MD [facility] DEPT OF SURGERY - NEUROSURGERY [address] [place] [address] Consulting Physician UROLOGY 01/22/21 11/22/22 Noemi Huynh MD [address] [place] [address] OTOLARYNGOLOGY 01/22/21 11/22/22 Mario Salazar MD [address] [place] [phone] UROLOGY 11/23/22 Marti Arreola RN Registered Nurse CARE MANAGEMENT 01/29/25 02/26/25 documented as of this encounter
--- OUTSIDE RECORDS SUMMARY | 2025-07-22 12:00 | XMS_ITS | Clinical Summary ---
Author Organization [facility] Address [address] [place] [address] Care Team Providers Care Economics Lecturer Name Role Phone Eran Masterson MD Primary Care Provider [phone] Yvonne Mosqueda MD Unavailable Rosario Galvan MD Unavailable [phone] Allergies Active Allergy Reactions Criticality Noted [...] tablet (40 mg total) by mouth daily. 4 Active furosemide (LASIX) 40 MG tablet Take [...] total) by mouth daily. 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 11/10/2024 Bryon hematuria 11/10/2024 Gastroesophageal reflux disease 11/10/2024 Renal cell carcinoma 11/10/2024 Type 2 diabetes mellitus 11/10/2024 Overview (11/10/2024): Jun 04, 2020 Entered By: YONNY MANTILLA Comment: no longer on insulin or pills after losing 125# Vitamin D deficiency 11/10/2024 Carcinoma of prostate 03/01/2024 Renal mass 04/16/2023 Right kidney mass 01/18/2023 Malignant neoplasm of colon, unspecified part of colon 10/06/2022 Severe sepsis 06/21/2022 GI bleed 06/21/2022 Presence of Amulet left atrial appendage closure device 01/03/2022 Fecal occult blood test positive 09/09/2021 Acute posterior epistaxis 04/24/2021 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 02/14/2021 Coronary artery disease invo lving [place] coronary artery of [place] heart without angina pectoris 02/07/2021 Other retention of urine 12/11/2020 Overview (12/11/2020): Added automatically from request for surgery [id number] Atrial flutter 11/14/2019 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 Family concerned regarding safety at home. 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/19/2022 11/10/2024 Symptomatic anemia 09/08/2021 half-way current use of antiarrhythmic drug 6 11/10/2024 Chronic anticoagulation 07/03/201610/28 Nonischemic cardiomyopathy 0 12/17/2017 Diastolic heart failure 11/26 Encounters Date Type Department Care Team Description 06/27/2025 2:30 AM CDT Allied Health/Nurse Visit [facility] [address] [place] [address] Yvonne Mosqueda MD 05/31/2025 Telephone [facility] [address] [place] [address] Yvonne Mosqueda MD Referral from Last 3 Months Immunizations Immunization Administration Dates Next Due Influenza Adult (Generic) 07/22/2021,,08/23/2019,2017,09/10/2017 PFIZER COVID-19 (ORIGINAL FORMULATION, PURPLE CAP) mRNA, LNP-S, PF, 30 MCG/0.3 ML DOSE 07/31/2021,11/20/2020,2020 Td, Adsorbed, Preservative F ree, Adult Use, Lf Unspecified 04/01/2020 Tdap (Boostrix) 04/29/2022 Family History Medical History Relation Comments Diabetes Brother Heart Disease Father Hypertension Father [place] Father Heart Disease Mother Hypertension Mother [place] Mother Coronary artery disease Other Relation Status [...] from your doctor or pharmacy? Often 01/28/2025 [facility] Utilities Answer Date Recorded In the past 12 months has [facility] [employer], [employer], or water [employer] threatened to shut off services in your [...] No 01/28/2025 Social Connection and Isolation Panel Answer Date Recorded In a typical week, how many times do you talk on the phone with family, friends, or neighbors? Once a week 01/28/2025 How often do you get together with friends or re latives? Once a week 01/28/2025 How often do you attend mu-ism or adventist serv ices? Never 01/28/2025 Do you belong to any clubs o r organizations such as mu-ism groups, unions, fraternal or athletic groups, or [...] move on to questions 3-9 0 02/18/2022 [facility] - Occupational Stress [...] place to sleep or slept in a skilled nursing (including now)? No 04/17/2023 Housing Stability Vital [...] time in the past 12 m [facility], were you homeless or living in a skilled nursing (including now)? No 01/28/2025 Education Answer Date [...] st Contact Info) Description 10/05/2025 1:30 AM RESERVATIONS MANAGER Allied Health/Nurse Visit [facility] [address] [place] [address] Yvonne Mosqueda MD [address] [place] [address] 11/21/2025 12:30 PM RESERVATIONS MANAGER Allied Health/Nurse Visit [facility] [address] [place] [address] Jimena Valle NP [address] [facility]. [address] [place] [address] 11/21/2025 1:00 PM RESERVATIONS MANAGER Office Visit [facility] [address] [place] [address] Jimena Valle NP [address] [facility]. [address] [place] [address] Health Maintenance Due Date Last Done Comments ASCVD LDL 1944 ASCVD Statin 1944 Kidney Health Evaluation 1944 Lipid Panel 1944 Diabetes: Retinopathy Eye Exam 1962 Annual Medicare Wellness Visit 2009 RSV Immunization or 60+ Years (1 - 1-dose 75+ series) 2019 Hemoglobin A1C 12/22/2022 06/24/2022, 0 11/2021, 10/12/2019, Additional history exists PHQ-2 (Physician [place]) 09/27/2024 COVID-19 Vaccine ( - 2024- season) 2025 07/23/2022, 07/31/2021, 11/20/2020, Additional history exists Influenza Adult (#1) 2025 06/27/2024, 07/28/2022, 07/22/2021, Additional history exists DTaP, Tdap and Td Vaccines (4 - Td or Tdap) 04/29/2032 04/29/2022, 04/01/2020, 01/07/2016, Additional history exists Pneumococcal Vaccine: 50+ Years Completed 09/03/2021, 06/12/2016, 05/28/2002 Zoster Vaccines Completed 02/04/2022, 04/2021, 05/03/2012 AAA SCREENING Completed 10/01/2022, 11/2021, 06/21/2022, Additional history exists Colorectal Cancer Screening Colonoscopy (10 Years) Discontinued 07/14/2023, 07/14/2023, 06/26/2022, Additional history exists Hepatitis A Vaccines Aged Out No long er eligible based on patient's age to complete this topic Meningococcal B Vaccine Aged Out No l [...] and discharge planning Lifestyle No Malinda Barillas range conservationist - family caregiver with be involved in care transitions and discharge planning Lifestyle No Malinda Barillas RN Medical Devices Implanted Type Area Tip Stretcher Device Identifier Shelf Expiration Date Model / Serial / Lot Barakat Amplatzer Amulet Left Atrial Appendage Occluder- [id number] Implanted:040 04/2022 by Yvonne Mosqueda MD (Quantity not on file) Closure Device Heart BARAKAT VASCULAR 06/26/2026 [id number] / / [id number] St Brad Dual Chamber Pacemaker Implanted:06/29 by Yvonne Mosqueda MD (Quantity not on file) Pacemaker [facility] [facility] - DIV ST BRAD [id number] / [id number] / Barakat Quadra Allure Biv Ppm-06/21/2024 Implanted:05/29 by Yvonne Mosqueda MD (Quantity not on file) Pacemaker BARAKAT PACER 09/26/2025 [id number] / [id number] / Agent Hemostatic Surgiflo 8 Ml Kit - [id number] Implanted:Qty: 1 on 04/16/2023 by Rosario Galvan MD at [facility] Sealant Right: Kidney [employer] 05/27/2024 [id number] / / [id number] Right Ventricular Lead Replacement- Implanted:07/29 by Yvonne Mosqueda MD (Quantity not on file) Explanted Type Area Tip Stretcher Device Identifier Shelf Expiration Date Model / Serial / Lot St Brad Bi-Ventricular Pacemaker- [id number] Implanted:2015 by Yvonne Mosqueda MD (Quantity not on file) Explanted:2023 by Yvonne Mosqueda MD (Quantity not on file) Procedures Procedure Name Priority Date/Time Associated Diagnosis Comments COLONOSCOPY Routine 07/14/2023 11:[address] ABD+PEL WWO CON Routine 10/01/2022 2: 31 PM RESERVATIONS MANAGER Hematuria, microscopic HEMOGLOBIN, GLYCOSYLATED Routine 06/24/2022 9:18 AM CDT from Last 3 Months or Most Recently Relevant to Health Maintenance Results * Colonoscopy (07/14/2023 11:45 AM CDT) Bryce Tran [facility] PROCEDURE ORDERAB LES Final Result * CT ABD+PEL WWO CON (10/01/2022 2:31 PM RESERVATIONS MANAGER) Anatomical Region Laterality Modality Abdomen Computed Tomogra phy 10/03/2022 10:4 4 AM RESERVATIONS MANAGER Impressions 10/03/2022 10:51 AM RESERVATIONS MANAGER Impression: 1. A 4 cm solid enhancing mass lesion is again seen involving the upper pole of the right kidney. 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 2. No suspicious lymphadenopathy is identified. Referred By: ROSARIO GALVAN Interpreted By: Nolberto Zimmerman MD, 10/03/2022 10:44 AM Narrative 10/03/2022 10:51 AM RESERVATIONS MANAGER Examination: CT ABD+PEL WWO CON Clinical Information: [...] 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
--- OUTSIDE RECORDS SUMMARY | 2025-07-22 12:01 | XMS_ITS | Encounter Summary ---
Author Organization [facility] Address [address] [place] [address] Care Team Providers Care Instruments Sales Representative Name Role Phone Eran Masterson MD Primary Care Provider [phone] Yvonne Mosqueda MD Unavailable [facility] schoolSohail sher MD Unavailable Unavail able Hailee Watts MD Unavailable [phone] Loni Ang MD Unavailable Monica Gauthier MD, Devin Unavailable [phone] Jori MATHIAS MD, Courtney Unavailable [phone] Noemi Huynh MD Unavailable Mario Salazar MD Unavailable [phone] Marti Arreola RN Unavailable Unavailable Encounter Details Date Type Department Care Team (Late st Contact Info) Description 07/16/2016 Abstract [facility] [address] [place] [address] Yvonne Mosqueda MD [address] [place] [address] Social History Tobacco Use Types Packs/Day Years Used Date Smoking Tobacco: Former Smokeless Tobacco: Current Chew Comments:Past smoker, regina hooper uses smokeless tobacco ([place]). Alcohol Use Standard Drinks/Week Comments No 0 [...] Upcoming Encounters Date Type Department Care Team ([facility] st Contact Info) Description 10/05/2025 1:30 AM SUPERVISOR DENTURE DEPARTMENT Allied Health/Nurse Visit [facility] [address] [place] [address] Yvonne Mosqueda MD [address] [place] [address] 11/21/2025 12:30 PM SUPERVISOR DENTURE DEPARTMENT Allied Health/Nurse Visit [facility] [address] [place] [address] Jimena Valle NP [address] [address] 11/21/2025 1:00 PM SUPERVISOR DENTURE DEPARTMENT Office Visit [facility] [address] [place] [address] Jimena Valle NP [address] [address] documented as of this encounter Procedures Procedure [...] Rule Out 08/23/2021 08/23/2021 08/23/2021 7:52 PM SUPERVISOR DENTURE DEPARTMENT COVID-19 Rule Out 10/04/2021 10/04/2021 10/04/2021 8:30 PM SUPERVISOR DENTURE DEPARTMENT COVID-19 Rule Out 11/08/2021 11/08/2021 11/08/2021 6:51 PM SUPERVISOR DENTURE DEPARTMENT COVID-19 Rule Out 12/13/2021 12/13/2021 12/13/2021 7:13 PM CDT COVID-19 Rule Out 12/30/2021 12/30/2021 12/30/2021 8:06 PM CDT COVID-19 Rule Out 06/21/2022 06/21/2022 06/21/2022 9:41 PM CDT documented as of this encounter Care Teams Instruments Sales Representative Relationship Specialty Start Date End Date Eran Masterson MD [address] [facility] [place] [address] PCP - General FAMILY PRACTICE 07/03/16 Yvonne Mosqueda MD [address] [place] [address] CLINICAL CARDIAC ELECTROPHYSIOLOGY 07/03/16 Sohail Stafford MD [address] [place] [address] CARDIOVASCULAR DISEASE 11/03/16 11/12/24 Hailee Watts MD [address] [place] [address] ENDOCRINOLOGY 09/13/19 05/18/22 Loni Ang MD [address] [place] [address] INTERNAL MEDICINE 09/13/19 11/25/20 Oscar Anderson MD [facility] DEPT OF SURGERY - NEUROSURGERY [address] [place] [address] NEUROLOGICAL SURGERY 11/26/20 11/22/22 Theresa Hsieh III, MD [facility] DEPT OF SURGERY - NEUROSURGERY [address] [place] [address] Consulting Physician UROLOGY 01/22/21 11/22/22 Noemi Huynh MD [address] [place] [address] OTOLARYNGOLOGY 01/22/21 11/22/22 Mario Salazar MD [address] [place] [phone] UROLOGY 11/23/22 Marti Arreola RN Registered Nurse CARE MANAGEMENT 01/29/25 02/26/25 documented as of this encounter
--- OUTSIDE RECORDS SUMMARY | 2025-07-22 12:01 | XMS_ITS | Encounter Summary ---
Author Organization [facility] Address [address] [place] [address] Care Team Providers Care Freight Associate Name Role Phone Eran Masterson MD Primary Care Provider [phone] Yvonne Mosqueda MD Unavailable Sohail Stafford MD Unavailable Unavail able Hailee Watts MD Unavailable [phone] Loni Ang MD Unavailable Monica Gauthier MD, Devin Unavailable [phone] Jori MATHIAS MD, Courtney Unavailable [phone] Noemi Huynh MD Unavailable Mario Salazar MD Unavailable [phone] Marti Arreola RN Unavailable Unavailable Encounter Details Date Type Department Care Team (Late st Contact Info) Description 02/28/2014 Abstract [facility] AT [address] [place] [address] Sohail Stafford MD Social History Tobacco Use Types Packs/Day Years Used Date Smoking Tobacco: Former Smokeless Tobacco: Current Chew Comments:Past smoker, regina hooper uses smokeless tobacco ([place]). Alcohol Use Standard Drinks/Week Comments No 0 [...] Upcoming Encounters Date Type Department Care Team ([facility] st Contact Info) Description 10/05/2025 1:30 AM BUSINESS DIRECTOR Allied Health/Nurse Visit [facility] [address] [place] [address] Yvonne Mosqueda MD [address] [place] [address] 11/21/2025 12:30 PM BUSINESS DIRECTOR Allied Health/Nurse Visit [facility] [address] [place] [address] Jimena Valle NP [address] [facility]. [address] [place] [address] 11/21/2025 1:00 PM BUSINESS DIRECTOR Office Visit [facility] [address] [place] [address] [phone] Jimena Valle, SOFTWARE DEVELOPER CONSULTANT [address] [facility] [address] [place] [address] documented as of this encounter Visit Diagnoses [...] Rule Out 08/23/2021 08/23/2021 08/23/2021 7:52 PM BUSINESS DIRECTOR COVID-19 Rule Out 10/04/2021 10/04/2021 10/04/2021 8:30 PM BUSINESS DIRECTOR COVID-19 Rule Out 11/08/2021 11/08/2021 11/08/2021 6:51 PM BUSINESS DIRECTOR COVID-19 Rule Out 12/13/2021 12/13/2021 12/13/2021 7:13 PM CDT COVID-19 Rule Out 12/30/2021 12/30/2021 12/30/2021 8:06 PM CDT COVID-19 Rule Out 06/21/2022 06/21/2022 06/21/2022 9:41 PM CDT documented as of this encounter Care Teams Freight Associate Relationship Specialty Start Date End Date Eran Masterson MD [address] [facility] [place] [address] PCP - General FAMILY PRACTICE 07/03/16 Yvonne Mosqueda MD [address] [place] [phone] CLINICAL CARDIAC ELECTROPHYSIOLOGY 07/03/16 Sohail Stafford MD [address] [place] [address] CARDIOVASCULAR DISEASE 11/03/16 11/12/24 Hailee Watts MD [address] [place] [address] ENDOCRINOLOGY 09/13/19 05/18/22 Loni Ang MD [address] [place] [address] INTERNAL MEDICINE 09/13/19 11/25/20 Oscar Anderson MD [facility] DEPT OF SURGERY - NEUROSURGERY [address] [place] [address] NEUROLOGICAL SURGERY 11/26/20 11/22/22 Theresa Hsieh III, MD [facility] DEPT OF SURGERY - NEUROSURGERY [address] [place] [address] Consulting Physician UROLOGY 01/22/21 11/22/22 Noemi Huynh MD [address] [place] [address] OTOLARYNGOLOGY 01/22/21 11/22/22 Mario Salazar MD [address] [place] [phone] UROLOGY 11/23/22 Marti Arreola RN Registered Nurse CARE MANAGEMENT 01/29/25 02/26/25 documented as of this encounter
[2025-07-22 12:34] LABS: Hematocrit 33.5 % (42.0-52.0); Hemoglobin 11.0 g/dL (14.0-18.0); Immature Granulocyte Percent A 1.0 % (0-0.5); Lymphocytes Absolute Auto 1.45 K/mm3 (0.9-3.2); Mean Corpuscular HGB Conc 32.8 g/dl (32-36); Mean Corpuscular Hemoglobin 27.2 pg (26-34); Mean Corpuscular Volume 82.7 fl (80-100); Nucleated Red Blood Cells Absolute Auto 0.000 K/mm3 (0.0-0.012); Nucleated Red Blood Cells Perc 0.0 % (0.0-0.2); Platelet Count Result 156 k/mm3 (150-375); Red Blood Count 4.05 M/mm3 (4.6-6.20); White Blood Count 5.1 K/mm3 (4.5-10.0)
[2025-07-22 12:47] LABS: INR 1.1; Prothrombin Time 14.1 Seconds (11.1-14.7)
[2025-07-22 12:48] LABS: Partial Thromboplastin Time 32.2 Seconds (22.3-36.8)
[2025-07-22 12:50] LABS: Anion Gap 7 mmol/L (4-12); Blood Urea Nitrogen 42 mg/dL (9-20); Calcium 8.6 mg/dL (8.4-10.2); Carbon Dioxide 33 mmol/L (22-30); Chloride 95 mmol/L (98-107); Estimated CRCL calculation 34 ml/min; Estimated Glomerular Filt Rate 35; Glucose 171 mg/dL (65-110); Potassium 3.6 mmol/L (3.4-5.0); Sodium 135 mmol/L (137-145)
== END 2025-07-22 14:04 ==
PROVIDERS: Emergency Provider Student in an Organized Health Care Education/Training Program; PCP Family Medicine
DX: M79.661 Pain in right lower leg (principal); I50.9 Heart failure, unspecified; F03.C0 Unspecified dementia, severe, without behavioral disturbance, psychotic disturbance, mood disturbance, and anxiety; E11.9 Type 2 diabetes mellitus without complications
CPT/HCPCS: 36415; 80048; 85025; 85610; 85730; 93971; 99284

== ENCOUNTER 2025-08-15 06:54 | Outpatient (NON) | payer MEDICARE, SELFPAY ==
--- OUTSIDE RECORDS SUMMARY | 2025-03-15 08:00 | XMS_ITS ---
Author Organization [facility] Address [address] [place], [place] [address] Care Team Providers Care Offbearer Sewer Pipe Name Role Phone JOVI PADRON Unavailable [phone] David Reyes Unavailable Unavailable Allergies Allergen (clinical [...] 03/15/2025 Encounters Encounter Location Date Provider Diagnosis [address] [id number] 03/15/2025 JOVI PADRON Ingrowing nail L60.0 ; Tinea unguium B35.1 ; Atherosclerosis of [place] arteries of extremities with intermittent claudication, bilateral [...] to pink healthy tissue 03/15/2025 Atherosclerosis of [place] arteries of extremities with intermittent claudication, bilateral [...] length to pink healthy tissue Atherosclerosis of [place] ar teries of extremities with intermittent claudication, [...] * Jayna CHIN: 5 (79 yo M)Acc No.[id number]:03/15/2025 Progress Notes Patient: Jose Daniel Marie Provider: Estrada PADRON :1945 A ge:79 Y S ex:Male Date:03/15/2025 Address:[address] [place] [address] Subjective: * Chief Complaints: * * General care * HPI: H PI: General care P atient presents to the office for diabetic foot care. Patient states that their nails are thickened, elongated and painful. Patient states that it is aggravated by shoe gear. Onset is gradual., Patient denies taking blood thinners., Date last seen by Dr. Reyes was 02/2025., Initials [facility]. * ROS: G eneral / Constitutional: Patient [...] unguium - B35.1 ?3. A therosclerosis of [place] arteries of extremities with intermittent claudication, bilateral [...] pink healthy tissue? 3. A therosclerosis of [place] arteries of extremities with intermittent claudication, bilateral [...] and updated. Billing Information: * Visit Code: 93109 Office Visit, New Pt., Level 3. * Electronic signature of ALFRED PADRON DPM on 08/15/2025 at 06:59 AM HOUSE WORKER GENERAL Sign off status: Pending * Provider: Estrada PADRON Date: 0 03/15/2025 Generated for Raj bowling/Evy/Scout on: 10/15/2024 06:59 AM HOUSE WORKER GENERAL
--- OUTSIDE RECORDS SUMMARY | 2025-08-15 06:58 | XMS_ITS ---
Author Organization Unknown Address [address] [place], [place] [id number] Phone Care Team Providers Care Prototype Sewer Name Role Phone MANDY PONCE Attending Unavailable CASEY Bland Primary Unavailable Immunization Immunization Date Status Additional Notes Code Code System Td (adult), 5 Lf tetanus toxoid, preservative free, adsorbed 04/01/2020 Completed 113 CVX Tdap 04/29/2022 Completed 115 CVX Influenza, split virus, quadrivalent, PF 07/22/2020 Completed 150 CVX Influenza, split virus, quadrivalent, PF 07/22/2021 Completed 150 CVX Influenza, split virus, quadrivalent, preservative 09/10/2017 Completed 158 C VX Influenza, split virus, quadrivalent, preservative 07/22/2018 Completed 158 C VX Influenza, split virus, quadrivalent, preservative 08/23/2019 Completed 158 C VX Influenza, high-dose, quadrivalent, PF 07/23/2022 Completed 197 CVX COVID-19, mRNA, LNP-S, PF, 3 0 mcg/0.3 mL dose 2020 Completed 208 CVX COVID-19, mRNA, LNP-S, PF, 3 0 mcg/0.3 mL dose 11/20/2020 Completed 208 CVX COVID-19, mRNA, LNP-S, PF, 3 0 mcg/0.3 mL dose 07/31/2021 Completed 208 CVX COVID-19, mRNA, LNP-S, bivalent, PF, 30 mcg/0.3 mL dose 07/23/2022 Completed 300 CVX Results PSA-DIAGNOSTIC - Collect Lb e/Time: 04/05/2024 11:41 [facility] ID: [id number] [address] [place], [place], [id number] LOINC: 2857-1 Test Value Unit Reference Range Code Code System Flag PSA DIAG < 0.064 ng/mL L=0.00 H=4.00 2857-1 LOINC Social History Type Status Start Date End Date Code Code Syst em Smoking History Former smoker 1965762 SNOMED CT Sex Male Medications Medication Start Date End Date Route Frequency Dose Code Code System Medication Instructions Home Meds Artificial Tears Ophthalmic Solution 02/05/2023 Unknown BOTH EYES NEEDED EVERY 2 HOURS 1 unit(s) 657828 RxNorm INSTILL IN 1 EACH BOTH EYES NEEDED EVERY 2 HOURS Aspirin 81MG Oral Tablet, Chewable 02/05/2023 Unknown ORAL ONCE A DAY 81 MILLIGRAMS 597557 RxNorm TAKE 81 MILLIGRAMS ORAL ONCE A DAY Atorvastatin Calcium 20MG Oral Tablet 02/05/2023 Unknown ORAL AT BEDTIME 20 MILLIGRAMS 046947 RxNorm TAKE 20 MILLIGRAMS ORAL AT BEDTIME Carvedilol 12.5MG Oral Tablet 02/05/2023 Unknown ORAL TWICE A DAY WITH MEALS 12.5 MILLIGRAMS 975272 RxNorm TAKE 12.5 MILLIGRAMS ORAL TWICE A DAY WITH MEALS Citalopram Hydrobromide 20MG Oral Tablet 02/05/2023 Unknown ORAL ONCE A DAY 20 MILLIGRAMS 022950 RxNorm TAKE 20 MILLIGRAMS ORAL ONCE A DAY Clopidogrel 75MG Oral Tablet 02/05/2023 Unknown ORAL ONCE A DAY 75 MILLIGRAMS 104217 RxNorm TAKE 75 MILLIGRAMS ORAL ONCE A DAY Docusate Sodium 100MG Oral Capsule, Liquid Filled 02/05/2023 Unknown ORAL TWICE A DAY 100 MILLIGRAMS 2434848 RxNorm TAKE 100 MILLIGRAMS ORAL TWICE A DAY Famotidine 20MG Oral Tablet 02/05/2023 Unknown ORAL AT BEDTIME 20 MILLIGRAMS 488182 RxNorm TAKE 20 MILLIGRAMS ORAL AT BEDTIME Ferrous Sulfate 325MG Oral Tablet 02/05/2023 Unknown ORAL TWICE A DAY 325 MILLIGRAMS 057835 RxNorm TAKE 325 MILLIGRAMS ORAL TWICE A DAY Gabapentin 600MG Oral Tablet 02/05/2023 Unknown ORAL EVERY 12 HOURS 600 MILLIGRAMS 698605 RxNorm TAKE 600 MILLIGRAMS ORAL EVERY 12 HOURS Lantus 100U/1ML Subcutaneous Solution 02/05/2023 Unknown SUBCUTAN EOUS AT BEDTIME 25 unit(s) 244897 RxNorm INJECT INTO 25 EACH SUBCUTANEO US AT BEDTIME Magnesium Oxide 400MG Oral Tablet 02/05/2023 Unknown ORAL ONCE A DAY 400 MILLIGRAMS 19861226 RxNorm TAKE 400 MILLIGRAMS ORAL ONCE A DAY Methocarbamol 500MG Oral Tablet 02/05/2023 Unknown ORAL NEEDED 4 TIMES A DAY 22906 MILLIGRAMS 678415 RxNorm TAKE 30885 MILLIGRAMS ORAL NEEDED 4 TIMES A DAY Nystatin 124191S/1GM Topical application Cream 02/05/2023 Unknown TOPICAL NEEDED TWICE A DAY 1 unit(s) 951605 RxNorm APPLY TO 1 EACH TOPICAL NEEDED TWICE A DAY Omeprazole 40MG Oral Capsule, Delayed Release 02/05/2023 Unknown ORAL ONCE A DAY 40 MILLIGRAMS 20021105 RxNorm TAKE 40 MILLIGRAMS ORAL ONCE A DAY Tamsulosin HCl 0.4MG Oral Capsule 02/05/2023 Unknown ORAL AT BEDTIME 0.4 MILLIGRAMS 726635 RxNorm TAKE 0.4 MILLIGRAMS ORAL AT BEDTIME Triamcinolone Acetonide 0.1% Topical application Cream 02/05/2023 Unknown TOPICAL NEEDED 3 TIMES A DAY 1 unit(s) 6396476 RxNorm APPLY TO 1 EACH TOPICAL NEEDED 3 TIMES A DAY hydrOXYzine Pamoate 25MG Oral Capsule 02/05/2023 Unknown ORAL NEEDED EVERY 6 HOURS 25 MILLIGRAMS 340945 RxNorm TAKE 25 MILLIGRAMS ORAL NEEDED EVERY 6 HOURS traZODone hydrochloride 50MG Oral Tablet 02/05/2023 Unknown ORAL AT BEDTIME 50 MILLIGRAMS 177279 RxNorm TAKE 50 MILLIGRAMS ORAL AT BEDTIME Assessment You had the following problems:GROSS HEMATURIA Hospital Discharge Instructions Should you have any questions prior to discharge, please contact a member of your healthcare team. If you have left the hospital and have any questions, please contact your primary care physician. Reason For Referral No Data Found Problems Problem Start Date Resolved Date Status Code Code System GROSS HEMATURIA active 825537563 SNOM ED-CT Allergies and Adverse Reactions Allergy Substance Reaction Severity Start Date Concern Status Co de Code System CEPHALOSPORIN Active 850463817 SNOMED-C T Plan of Treatment No Data Found Encounters Encounter Diagnosis Start Date Code Code Sys tem Encounter for follow-up exam ination after completed treatment for malignant neoplasm 04/05/2024 SNOMED- CT Personal Care Team Section Performer Name Performer Role Active Date Inactive CHEY Smith PCP - Primary care physician 9
--- OUTSIDE RECORDS SUMMARY | 2025-08-15 06:59 | XMS_ITS ---
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 Role Phone MANDY PONCE Attending Unavailable [...] mL dose 07/23/2022 Completed 300 CVX Results BUN/CREAT - Collect Date/[place] e: 03/28/2024 11:35 [facility] ID: [id number] [address] [place], [place], [id number] LOINC: 3097-3 Test Value Unit Reference Range Code Code System Flag BUN 26 mg/dL L=7 H=20 3094-0 LOINC H CREATININE 1.50 mg/dL L=0.66 H=1.25 2160-0 LOINC H AGE 78 [address]64[address]-7 LOINC eGFR NON-AFR 48 ml/min eGFR AFR AMER 58 ml/min CHEST 2V - Completed: 2023 12:22 LOINC: EXAM DESCRIPTION: CHEST 2V REASON FOR STUDY: Follow-up of right kidney cancer from January 2023. TECHNIQUE: PA and lateral radiographic views of the chest COMPARISON: Chest radiograph 06/23/2023 FINDINGS: LUNGS/PLEURAE: No consolidation or pneumothorax. No pleural effusion. HEART/MEDIASTINUM: Heart size is within normal limits. Stable mediastinal contours. HARDWARE/LINES/TUBES: Left chest generator pack with stable lead configuration. Left atrial occlusion device present. BONES: No acute findings. IMPRESSION: ? ? No acute radiographic abnormality. THIS IS AN ELECTRONICALLY VERIFIED FINAL REPORT 03/30/2024 7:21 AM - Electronically signed by Billy Daniel M.D. LB: MIRTA Report ID: [id number] [place] Location: [place] [address] CT ABD/PEL W+WO CONTRAST - C ompleted: 03/28/2024 12:22 LOINC: 47808-8 EXAM DESCRIPTION: CT ABD/PEL W+WO CONTRAST REASON FOR STUDY: follow up right kidney malignancy / no current complaints Duration: January 2023 Previous Surgery: right kidney/ gallbladder/ colon Cancer History: Type: right kidney TECHNIQUE: CT scan of the abdomen and pelvis performed without and with intravenous and without oral contrast using helical scanning technique with dynamic intravenous contrast injection. Reconstructed coronal and sagittal MPR images reviewed. All images stored on PACS. Automated exposure control was used as a dose optimization technique for this examination. CONTRAST TYPE/DOSE: 100 cc's of Isovue 370 injected via left upper chest 20 ga COMPARISON: Abdomen pelvis CT 06/23/2023 FINDINGS: LOWER CHEST: No significant pulmonary abnormalities. No effusion. LIVER: Normal size with no focal lesion. Hepatic steatosis. GALLBLADDER: Surgically absent. BILE DUCTS: No intrahepatic or extrahepatic ductal dilatation. SPLEEN: Normal size. No focal lesions. PANCREAS: No identified cystic or solid masses. No significant calcifications. No adjacent inflammation or peripancreatic fluid collections. Pancreatic duct not dilated. ADRENALS: Normal. KIDNEYS/URINARY TRACT: Right nephrectomy. No suspicious mass in the surgical bed. Unchanged left renal cysts. No concerning left renal lesion. Normal contrast excretion into the renal pelvis and left ureter with no filling defect. No hydronephrosis or hydroureter. Urinary bladder is unremarkable. GI: Postoperative changes of right hemicolectomy with surgical anastomosis in the right lower abdomen. No bowel obstruction or significant bowel wall thickening. Colonic diverticulosis without evidence of diverticulitis. Moderate amount of stool throughout the colon. PERITONEUM: No ascites or free air. RETROPERITONEUM: No mass or adenopathy. REPRODUCTIVE: No significant abnormality. VASCULATURE: Atherosclerotic calcification of the aorta without aneurysm. MUSCULOSKELETAL: No acute fracture or aggressive osseous lesion. 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 Bkyj-lc-iuufypow lumbar spondylosis. OTHER: No other abnormality. IMPRESSION: ? ? Right nephrectomy with no evidence of local recurrence or lymphadenopathy in the abdomen or pelvis. ? ? Right hemicolectomy with patent anastomosis. ? ? Colonic diverticulosis. ? ? Additional chronic findings above. THIS IS AN ELECTRONICALLY VERIFIED FINAL REPORT 03/29/2024 12:38 PM - Electronically signed by Jonnie Gupta M.D. AG: WILLIAM Report ID: [id number] [place] Location: [id number] Social History Type Status Start Date End Date Code Code Syst em Smoking History Former smoker [id number] SNOMED CT Sex Male Medications Medication Start Date End Date Route Frequency Dose Code Code System Medication Instructions Home Meds Artificial Tears Ophthalmic Solution 02/05/2023 Unknown BOTH EYES NEEDED EVERY 2 HOURS 1 unit(s) 721809 RxNorm INSTILL IN 1 EACH BOTH EYES NEEDED EVERY 2 HOURS Aspirin 81MG Oral Tablet, Chewable 02/05/2023 Unknown ORAL ONCE A DAY 81 MILLIGRAMS 347999 RxNorm TAKE 81 MILLIGRAMS ORAL ONCE A DAY Atorvastatin Calcium 20MG Oral Tablet 02/05/2023 Unknown ORAL AT BEDTIME 20 MILLIGRAMS 300841 RxNorm TAKE 20 MILLIGRAMS ORAL AT BEDTIME Carvedilol 12.5MG Oral Tablet 02/05/2023 Unknown ORAL TWICE A DAY WITH MEALS 12.5 MILLIGRAMS 19991127 RxNorm TAKE 12.5 MILLIGRAMS ORAL TWICE A DAY WITH MEALS Citalopram Hydrobromide 20MG Oral Tablet 02/05/2023 Unknown ORAL ONCE A DAY 20 MILLIGRAMS 20030327 RxNorm TAKE 20 MILLIGRAMS ORAL ONCE A DAY Clopidogrel 75MG Oral Tablet 02/05/2023 Unknown ORAL ONCE A DAY 75 MILLIGRAMS 002742 RxNorm TAKE 75 MILLIGRAMS ORAL ONCE A DAY Docusate Sodium 100MG Oral Capsule, Liquid Filled 02/05/2023 Unknown ORAL TWICE A DAY 100 MILLIGRAMS 6065290 RxNorm TAKE 100 MILLIGRAMS ORAL TWICE A DAY Famotidine 20MG Oral Tablet 02/05/2023 Unknown ORAL AT BEDTIME 20 MILLIGRAMS 782099 RxNorm TAKE 20 MILLIGRAMS ORAL AT BEDTIME Ferrous Sulfate 325MG Oral Tablet 02/05/2023 Unknown ORAL TWICE A DAY 325 MILLIGRAMS 296974 RxNorm TAKE 325 MILLIGRAMS ORAL TWICE A DAY Gabapentin 600MG Oral Tablet 02/05/2023 Unknown ORAL EVERY 12 HOURS 600 MILLIGRAMS 824444 RxNorm TAKE 600 MILLIGRAMS ORAL EVERY 12 HOURS Lantus 100U/1ML Subcutaneous Solution 02/05/2023 Unknown SUBCUTAN EOUS AT BEDTIME 25 unit(s) 792034 RxNorm INJECT INTO 25 EACH SUBCUTANEO US AT BEDTIME Magnesium Oxide 400MG Oral Tablet 02/05/2023 Unknown ORAL ONCE A DAY 400 MILLIGRAMS 19861226 RxNorm TAKE 400 MILLIGRAMS ORAL ONCE A DAY Methocarbamol 500MG Oral Tablet 02/05/2023 Unknown ORAL NEEDED 4 TIMES A DAY 00535 MILLIGRAMS 19781228 RxNorm TAKE 33676 MILLIGRAMS ORAL NEEDED 4 TIMES A DAY Nystatin 290714P/1GM Topical application Cream 02/05/2023 Unknown TOPICAL NEEDED TWICE A DAY 1 unit(s) 982717 RxNorm APPLY TO 1 EACH TOPICAL NEEDED TWICE A DAY Omeprazole 40MG Oral Capsule, Delayed Release 02/05/2023 Unknown ORAL ONCE A DAY 40 MILLIGRAMS 20021105 RxNorm TAKE 40 MILLIGRAMS ORAL ONCE A DAY Tamsulosin HCl 0.4MG Oral Capsule 02/05/2023 Unknown ORAL AT BEDTIME 0.4 MILLIGRAMS 603264 RxNorm TAKE 0.4 MILLIGRAMS ORAL AT BEDTIME Triamcinolone Acetonide 0.1% Topical application Cream 02/05/2023 Unknown TOPICAL NEEDED 3 TIMES A DAY 1 unit(s) 0998810 RxNorm APPLY TO 1 EACH TOPICAL NEEDED 3 TIMES A DAY hydrOXYzine Pamoate 25MG Oral Capsule 02/05/2023 Unknown ORAL NEEDED EVERY 6 HOURS 25 MILLIGRAMS 505736 RxNorm TAKE 25 MILLIGRAMS ORAL NEEDED EVERY 6 HOURS traZODone hydrochloride 50MG Oral Tablet 02/05/2023 Unknown ORAL AT BEDTIME 50 MILLIGRAMS 389081 RxNorm TAKE 50 MILLIGRAMS ORAL AT BEDTIME [...] Status Code Code System GROSS HEMATURIA active 129588724 SNOM ED-CT Allergies and Adverse Reactions Allergy Substance Reaction Severity Start Date Concern Status Co de Code System CEPHALOSPORIN Active 207506964 SNOMED-C T Plan of Treatment No Data Found Encounters Encounter Diagnosis Start Date Code Code Sys tem Malignant neoplasm of unspec ified kidney, except renal pelvis 03/28/2024 SNOMED-CT Personal Care Team Section Performer Name Performer Role Active Date Inactive CHEY Smith PCP - Primary care physician 9 Imaging Narrative Notes
--- OUTSIDE RECORDS SUMMARY | 2025-08-15 06:59 | XMS_ITS | Patient Health Record ---
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 Name Role Phone JOVI PADRON Unavailable [phone] David Reyes Unavailable Unavailable Allergies Allergen (clinical [...] Release Oral; Duration: 30 Days A ctive Furosemide 80 MG Tablet Oral; Duration: 30 Days Active QUEtiapine Fumarate 25 MG Tablet Oral; Duration: 30 Days Acti ve Basaglar KwikPen 100 UNIT/ML Solution Pen-injector Subcutaneous; Duration: 22 Days Active Citalopram Hydrobromide 40 MG Tablet [...] Control (Standard) Tobacco use: Nonsmoker Vital Signs Height-cm 165.1 cm 03/15/2025 Weight-kg 95.71 kg 03/15/2025 Height 65 in 03/15/2025 Weight 211 lbs 03/15/2025 BMI 35.11 kg/m2 03/15/2025 Encounters Encounter Location Date Provider Diagnosis [address] [phone] 03/15/2025 JOVI PADRON Ingrowing nail L60.0 ; Tinea unguium B35.1 ; Atherosclerosis of [place] arteries of extremities with intermittent claudication, bilateral [...] to pink healthy tissue 03/15/2025 Atherosclerosis of [place] arteries of extremities with intermittent claudication, bilateral [...] Date Coverage End Date [employer] [address] [place] [phone] [id number] NONE Jose Daniel Chin Self - patient is the insured Medical (General) History Medical History History ICD Code artificial joint Cancer Leg/Feet cramps Open Sores Diabetic
--- OUTSIDE RECORDS SUMMARY | 2025-08-15 06:59 | XMS_ITS ---
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 Role Phone MANDY PONCE Attending Unavailable [...] mcg/0.3 mL dose 07/23/2022 Completed 300 CVX Social History Type Status Start Date End Date Code Code Syst em Smoking History Former smoker 4019872 SNOMED CT Sex Male Medications Medication Start Date End Date Route Frequency Dose Code Code System Medication Instructions Home Meds Artificial Tears Ophthalmic Solution 02/05/2023 Unknown BOTH EYES NEEDED EVERY 2 HOURS 1 unit(s) 954765 RxNorm INSTILL IN 1 EACH BOTH EYES NEEDED EVERY 2 HOURS Aspirin 81MG Oral Tablet, Chewable 02/05/2023 Unknown ORAL ONCE A DAY 81 MILLIGRAMS 925027 RxNorm TAKE 81 MILLIGRAMS ORAL ONCE A DAY Atorvastatin Calcium 20MG Oral Tablet 02/05/2023 Unknown ORAL AT BEDTIME 20 MILLIGRAMS 381487 RxNorm TAKE 20 MILLIGRAMS ORAL AT BEDTIME Carvedilol 12.5MG Oral Tablet 02/05/2023 Unknown ORAL TWICE A DAY WITH MEALS 12.5 MILLIGRAMS 19991127 RxNorm TAKE 12.5 MILLIGRAMS ORAL TWICE A DAY WITH MEALS Citalopram Hydrobromide 20MG Oral Tablet 02/05/2023 Unknown ORAL ONCE A DAY 20 MILLIGRAMS 821772 RxNorm TAKE 20 MILLIGRAMS ORAL ONCE A DAY Clopidogrel 75MG Oral Tablet 02/05/2023 Unknown ORAL ONCE A DAY 75 MILLIGRAMS 131998 RxNorm TAKE 75 MILLIGRAMS ORAL ONCE A DAY Docusate Sodium 100MG Oral Capsule, Liquid Filled 02/05/2023 Unknown ORAL TWICE A DAY 100 MILLIGRAMS 2627149 RxNorm TAKE 100 MILLIGRAMS ORAL TWICE A DAY Famotidine 20MG Oral Tablet 02/05/2023 Unknown ORAL AT BEDTIME 20 MILLIGRAMS 898344 RxNorm TAKE 20 MILLIGRAMS ORAL AT BEDTIME Ferrous Sulfate 325MG Oral Tablet 02/05/2023 Unknown ORAL TWICE A DAY 325 MILLIGRAMS 724260 RxNorm TAKE 325 MILLIGRAMS ORAL TWICE A DAY Gabapentin 600MG Oral Tablet 02/05/2023 Unknown ORAL EVERY 12 HOURS 600 MILLIGRAMS 906910 RxNorm TAKE 600 MILLIGRAMS ORAL EVERY 12 HOURS Lantus 100U/1ML Subcutaneous Solution 02/05/2023 Unknown SUBCUTAN EOUS AT BEDTIME 25 unit(s) 549869 RxNorm INJECT INTO 25 EACH SUBCUTANEO US AT BEDTIME Magnesium Oxide 400MG Oral Tablet 02/05/2023 Unknown ORAL ONCE A DAY 400 MILLIGRAMS 527576 RxNorm TAKE 400 MILLIGRAMS ORAL ONCE A DAY Methocarbamol 500MG Oral Tablet 02/05/2023 Unknown ORAL NEEDED 4 TIMES A DAY 47691 MILLIGRAMS 619916 RxNorm TAKE 66373 MILLIGRAMS ORAL NEEDED 4 TIMES A DAY Nystatin 438658X/1GM Topical application Cream 02/05/2023 Unknown TOPICAL NEEDED TWICE A DAY 1 unit(s) 345155 RxNorm APPLY TO 1 EACH TOPICAL NEEDED TWICE A DAY Omeprazole 40MG Oral Capsule, Delayed Release 02/05/2023 Unknown ORAL ONCE A DAY 40 MILLIGRAMS 614835 RxNorm TAKE 40 MILLIGRAMS ORAL ONCE A DAY Tamsulosin HCl 0.4MG Oral Capsule 02/05/2023 Unknown ORAL AT BEDTIME 0.4 MILLIGRAMS 968633 RxNorm TAKE 0.4 MILLIGRAMS ORAL AT BEDTIME Triamcinolone Acetonide 0.1% Topical application Cream 02/05/2023 Unknown TOPICAL NEEDED 3 TIMES A DAY 1 unit(s) 0680219 RxNorm APPLY TO 1 EACH TOPICAL NEEDED 3 TIMES A DAY hydrOXYzine Pamoate 25MG Oral Capsule 02/05/2023 Unknown ORAL NEEDED EVERY 6 HOURS 25 MILLIGRAMS 219974 RxNorm TAKE 25 MILLIGRAMS ORAL NEEDED EVERY 6 HOURS traZODone hydrochloride 50MG Oral Tablet 02/05/2023 Unknown ORAL AT BEDTIME 50 MILLIGRAMS 633493 RxNorm TAKE 50 MILLIGRAMS ORAL AT BEDTIME [...] Status Code Code System GROSS HEMATURIA active 892920964 SN ED-CT Allergies and Adverse Reactions Allergy Substance Reaction Severity Start Date Concern Status Co de Code System CEPHALOSPORIN Active 176768364 SNOMED-C T Plan of Treatment No Data Found Encounters Encounter Diagnosis Start Date Code Code Sys tem Benign prostatic hyperplasia without lower urinary tract symptoms 09/08/2023 SNOMED-CT Personal Care Team Section Performer Name Performer Role Active Date Inactive CHEY Smith PCP - Primary care physician 9
--- OUTSIDE RECORDS SUMMARY | 2025-08-15 07:00 | XMS_ITS ---
Author Organization Unknown Address [address] [place], [place] [phone] Phone Care Team Providers Care Team Leader Surgery Name Role Phone MANDY PONCE Attending Unavailable [...] CVX Results BUN/CREAT - Collect Date/Severino e: 11/06/2024 10:[address] [facility] ID: [id number] [place] [address], [id number] LOINC: 3097-3 Test Value Unit Reference Range Code Code System Flag BUN 26 mg/dL L=7 H=20 3094-0 LOINC H CREATININE 1.60 mg/dL L=0.66 H=1.25 2160-0 LOINC H AGE 79 53060-0 LOINC eGFR NON-AFR 44 ml/min eGFR AFR AMER 53 ml/min CHEST 2V - Completed: 2024 11:16 LOINC: \TM00\\10PI\\DRAo\\BM09\ \MRLo\ [address] [address] ---------NAME--------- NUMBER SEX AGE ADMIT DISC. XRAY# F/C TYPE OANH OCHOA [id number] M 79 11/06/24 11/06/24 11333 VB O/P DATE OF : 1945 M/R# [id number] PH#: [phone] \[facility]\ LOCATION: TRANSCRIBED: 11/06/24 11:10 CHEST 2V 06145 COMPLETED:11/06/24 11:16 KIM [id number] {REASON-CHEST: MALIGNANT TUMOR OF KIDNEY PHYSICIAN: MANDY LYUDMILA R A D I O L O G Y R E P O R T CHEST 2V CLINICAL HISTORY: MALIGNANT TUMOR OF KIDNEY COMPARISON: None TECHNIQUE: Frontal and lateral view of the chest was obtained FINDINGS: Lines and Tubes: Dual lead left-sided pacemaker. Lungs: No focal consolidation. Pleura: No effusion. No pneumothorax. Cardiomediastinal contours: Unremarkable Bones: No acute osseous abnormality. IMPRESSION: No acute cardiopulmonary disease. 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 XRAY# F/C TYPE OANH OCHOA [id number] M 79 11/06/24 11/06/24 22673 VB O/P DATE OF : 1945 M/R# [id number] #: [id number] [facility] LOCATION: TRANSCRIBED: 11/06/24 11:51 CT ABD/PEL W+WO CONTRAST 28782 COMPLETED:11/06/24 11:15 KIM [id number] {REASON-CT ABD/PELVIS MALIGNANT TUMOR OF KIDNEY PHYSICIAN: MANDY LYUDMILA R A D I O L O G Y R E P O R T CLINICAL INFORMATION: 79 years old, Male; MALIGNANT TUMOR OF KIDNEY. TECHNIQUE: Axial CT images of the abdomen and pelvis were obtained prior to and after the uneventful administration of 100 mL isovue 370 IV contrast. Postcontrast images were obtained in the portal venous phase, 3 minute delayed phase, and 10 minute delayed phase. Coronal and sagittal reformatted images were obtained, reviewed, and stored. All CT scans at this medical facility are performed using dose modulation techniques as appropriate to a performed exam including the following: Automated exposure control was utilized; adjustment of the MA and/or KV according to patient size; and use of iterative reconstruction technique. CTDIvol = 55.92, 58.32, 43.29, 42.38, 52.89, 0.09 mGy DLP = 8402 mGy-cm COMPARISON: None FINDINGS: Lung bases: Dependent atelectasis in the lung bases. Liver: Hepatic steatosis. Biliary: Cholecystectomy. Spleen: Unremarkable. Pancreas: Unremarkable. No inflammatory changes, ductal dilatation, or mass identified. Adrenal glands: Unremarkable. No mass. Kidneys: Postsurgical changes of right nephrectomy. No evidence of residual or recurrent disease at the nephrectomy bed. There are cysts in the left kidney, which are stable. Nodular contour of the left kidney, likely due to scarring. No hydronephrosis. Delayed images demonstrate no mass or filling defect in the left renal collecting system. Aorta/Vascular: No aneurysm or significant calcification. Retroperitoneum: Small subcentimeter external iliac lymph nodes and small subcentimeter para-aortic lymph nodes. Bowel/mesentery: Nonspecific mildly distended fluid-filled small bowel loops. No small bowel obstruction. Postsurgical changes of right hemicolectomy with enterocolonic anastomosis in the right upper abdomen. Scattered small colonic diverticula without adjacent inflammatory changes to suggest diverticulitis. Pelvic organs: Grossly unremarkable. Bladder: Unremarkable. Abdominal wall: Diastasis of the rectus abdominis muscles with moderate fat containing supraumbilical ventral hernia. Bones: No acute fracture or focal intraosseous lesion. IMPRESSION: 1. Postsurgical changes of prior right nephrectomy. No evidence of residual or recurrent disease at the nephrectomy bed. 2. Left renal cysts are stable. No suspicious mass identified in the left kidney. 3. Nonspecific mildly distended fluid-filled small bowel loops. Findings may be seen with ileus or enteritis in the appropriate clinical setting. No small bowel obstruction. 4. Additional nonacute findings as detailed above. 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\ \UNDo\ \UNDx\ \ITLx\ Reviewed and Electronically Signed by: Fabien Macias DO Signed Date: 11/06/24 11:51 11/06/24.1248.KIM.to SHRUTHI via fax Social History Type Status Start Date End Date Code Code Syst em Smoking History Former smoker 0333184 SNOMED CT Sex Male Medications Medication Start Date End Date Route Frequency Dose Code Code System Medication Instructions Home Meds Artificial Tears Ophthalmic Solution 02/05/2023 Unknown BOTH EYES NEEDED EVERY 2 HOURS 1 unit(s) 982727 RxNorm INSTILL IN 1 EACH BOTH EYES NEEDED EVERY 2 HOURS Aspirin 81MG Oral Tablet, Chewable 02/05/2023 Unknown ORAL ONCE A DAY 81 MILLIGRAMS 435188 RxNorm TAKE 81 MILLIGRAMS ORAL ONCE A DAY Atorvastatin Calcium 20MG Oral Tablet 02/05/2023 Unknown ORAL AT BEDTIME 20 MILLIGRAMS 219128 RxNorm TAKE 20 MILLIGRAMS ORAL AT BEDTIME Carvedilol 12.5MG Oral Tablet 02/05/2023 Unknown ORAL TWICE A DAY WITH MEALS 12.5 MILLIGRAMS 063795 RxNorm TAKE 12.5 MILLIGRAMS ORAL TWICE A DAY WITH MEALS Citalopram Hydrobromide 20MG Oral Tablet 02/05/2023 Unknown ORAL ONCE A DAY 20 MILLIGRAMS 498500 RxNorm TAKE 20 MILLIGRAMS ORAL ONCE A DAY Clopidogrel 75MG Oral Tablet 02/05/2023 Unknown ORAL ONCE A DAY 75 MILLIGRAMS 747278 RxNorm TAKE 75 MILLIGRAMS ORAL ONCE A DAY Docusate Sodium 100MG Oral Capsule, Liquid Filled 02/05/2023 Unknown ORAL TWICE A DAY 100 MILLIGRAMS 8200108 RxNorm TAKE 100 MILLIGRAMS ORAL TWICE A DAY Famotidine 20MG Oral Tablet 02/05/2023 Unknown ORAL AT BEDTIME 20 MILLIGRAMS 430310 RxNorm TAKE 20 MILLIGRAMS ORAL AT BEDTIME Ferrous Sulfate 325MG Oral Tablet 02/05/2023 Unknown ORAL TWICE A DAY 325 MILLIGRAMS 521570 RxNorm TAKE 325 MILLIGRAMS ORAL TWICE A DAY Gabapentin 600MG Oral Tablet 02/05/2023 Unknown ORAL EVERY 12 HOURS 600 MILLIGRAMS 185021 RxNorm TAKE 600 MILLIGRAMS ORAL EVERY 12 HOURS Lantus 100U/1ML Subcutaneous Solution 02/05/2023 Unknown SUBCUTAN EOUS AT BEDTIME 25 unit(s) 460232 RxNorm INJECT INTO 25 EACH SUBCUTANEO US AT BEDTIME Magnesium Oxide 400MG Oral Tablet 02/05/2023 Unknown ORAL ONCE A DAY 400 MILLIGRAMS 19861226 RxNorm TAKE 400 MILLIGRAMS ORAL ONCE A DAY Methocarbamol 500MG Oral Tablet 02/05/2023 Unknown ORAL NEEDED 4 TIMES A DAY 16708 MILLIGRAMS 999704 RxNorm TAKE 27532 MILLIGRAMS ORAL NEEDED 4 TIMES A DAY Nystatin 813965W/1GM Topical application Cream 02/05/2023 Unknown TOPICAL NEEDED TWICE A DAY 1 unit(s) 730616 RxNorm APPLY TO 1 EACH TOPICAL NEEDED TWICE A DAY Omeprazole 40MG Oral Capsule, Delayed Release 02/05/2023 Unknown ORAL ONCE A DAY 40 MILLIGRAMS 20021105 RxNorm TAKE 40 MILLIGRAMS ORAL ONCE A DAY Tamsulosin HCl 0.4MG Oral Capsule 02/05/2023 Unknown ORAL AT BEDTIME 0.4 MILLIGRAMS 149107 RxNorm TAKE 0.4 MILLIGRAMS ORAL AT BEDTIME Triamcinolone Acetonide 0.1% Topical application Cream 02/05/2023 Unknown TOPICAL NEEDED 3 TIMES A DAY 1 unit(s) 9028029 RxNorm APPLY TO 1 EACH TOPICAL NEEDED 3 TIMES A DAY hydrOXYzine Pamoate 25MG Oral Capsule 02/05/2023 Unknown ORAL NEEDED EVERY 6 HOURS 25 MILLIGRAMS 243244 RxNorm TAKE 25 MILLIGRAMS ORAL NEEDED EVERY 6 HOURS traZODone hydrochloride 50MG Oral Tablet 02/05/2023 Unknown ORAL AT BEDTIME 50 MILLIGRAMS 491327 RxNorm TAKE 50 MILLIGRAMS ORAL AT BEDTIME [...] Status Code Code System GROSS HEMATURIA active 465948877 SNOM ED-CT Allergies and Adverse Reactions Allergy Substance Reaction Severity Start Date Concern Status Co de Code System CEPHALOSPORIN Active 210958047 SNOMED-C T Plan of Treatment No Data Found Encounters Encounter Diagnosis Start Date Code Code Sys tem Malignant neoplasm of unspec ified kidney, except renal pelvis 11/06/2024 SNOMED-CT Personal Care Team Section Performer Name Performer Role Active Date Inactive CHEY Smith PCP - Primary care physician 2022-09-0 9 Imaging Narrative Notes [facility] 11/06/2024 12:[address] [address] ---------NAME--------- NUMBER SEX AGE ADMIT DISC. XRAY# F/C TYPE OANH OCHOA [id number] M 79 11/06/24 11/06/24 93033 VB O/P DATE OF : 1945 M/R# [id number] #: [id number] LOCATION: TRANSCRIBED: 11/06/24 11:51 CT ABD/PEL W+WO CONTRAST 42414 COMPLETED:11/06/24 11:15 KIM 10795 {REASON-CT ABD/PELVIS MALIGNANT TUMOR OF KIDNEY PHYSICIAN: MANDY LYUDMILA R A D I O L O G Y R E P O R T CLINICAL INFORMATION: 79 years old, Male; MALIGNANT TUMOR OF KIDNEY. TECHNIQUE: Axial CT images of the abdomen and pelvis were obtained prior to and after the uneventful administration of 100 mL isovue 370 IV contrast. Postcontrast images were obtained in the portal venous phase, 3 minute delayed phase, and 10 minute delayed phase. Coronal and sagittal reformatted images were obtained, reviewed, and stored. All CT scans at this medical facility are performed using dose modulation techniques as appropriate to a performed exam including the following: Automated exposure control was utilized; adjustment of the MA and/or KV according to patient size; and use of iterative reconstruction technique. CTDIvol = 55.92, 58.32, 43.29, 42.38, 52.89, 0.09 mGy DLP = 8402 mGy-cm COMPARISON: None FINDINGS: Lung bases: Dependent atelectasis in the lung bases. Liver: Hepatic steatosis. Biliary: Cholecystectomy. Spleen: Unremarkable. Pancreas: Unremarkable. No inflammatory changes, ductal dilatation, or mass identified. Adrenal glands: Unremarkable. No mass. Kidneys: Postsurgical changes of right nephrectomy. No evidence of residual or recurrent disease at the nephrectomy bed. There are cysts in the left kidney, which are stable. Nodular contour of the left kidney, likely due to scarring. No hydronephrosis. Delayed images demonstrate no mass or filling defect in the left renal collecting system. Aorta/Vascular: No aneurysm or significant calcification. Retroperitoneum: Small subcentimeter external iliac lymph nodes and small subcentimeter para-aortic lymph nodes. Bowel/mesentery: Nonspecific mildly distended fluid-filled small bowel loops. No small bowel obstruction. Postsurgical changes of right hemicolectomy with enterocolonic anastomosis in the right upper abdomen. Scattered small colonic diverticula without adjacent inflammatory changes to suggest diverticulitis. Pelvic organs: Grossly unremarkable. Bladder: Unremarkable. Abdominal wall: Diastasis of the rectus abdominis muscles with moderate fat containing supraumbilical ventral hernia. Bones: No acute fracture or focal intraosseous lesion. IMPRESSION: 1. Postsurgical changes of prior right nephrectomy. No evidence of residual or recurrent disease at the nephrectomy bed. 2. Left renal cysts are stable. No suspicious mass identified in the left kidney. 3. Nonspecific mildly distended fluid-filled small bowel loops. Findings may be seen with ileus or enteritis in the appropriate clinical setting. No small bowel obstruction. 4. Additional nonacute findings as detailed above. 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 11/06/2024 12:[address] [address] ---------NAME--------- NUMBER SEX AGE ADMIT DISC. XRAY# F/C TYPE OANH OCHOA [id number] 79 11/06/24 11/06/24 83004 VB O/P DATE OF : 1945 M/R# [id number] #: [id number] LOCATION: TRANSCRIBED: 11/06/24 11:10 CHEST 2 [id number] COMPLETED:11/06/24 11:16 KIM 81782 {REASON-CHEST: MALIGNANT TUMOR OF KIDNEY PHYSICIAN: MANDY LYUDMILA R A D I O L O G Y R E P O R T CHEST 2V CLINICAL HISTORY: MALIGNANT TUMOR OF KIDNEY COMPARISON: None TECHNIQUE: Frontal and lateral view of the chest was obtained FINDINGS: Lines and Tubes: Dual lead left-sided pacemaker. Lungs: No focal consolidation. Pleura: No effusion. No pneumothorax. Cardiomediastinal contours: Unremarkable Bones: No acute osseous abnormality. IMPRESSION: No acute cardiopulmonary disease. 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
[2025-08-15 07:20] LABS: Hematocrit 35.1 % (37.0-46.0); Hemoglobin 11.3 g/dL (12.4-15.3); Mean Corpuscular HGB Conc 32.2 g/dL (32-36); Mean Corpuscular Hemoglobin 26.8 pg (27.0-31.0); Mean Corpuscular Volume 83.2 fL (78.0-102.0); Platelet Count Result 187 K/mm3 (150-420); Red Blood Count 4.22 M/mm3 (4.70-6.10); White Blood Count 5.3 K/mm3 (4.8-10.8)
[2025-08-15 07:36] LABS: Anion Gap 10 mmol/L (4-12); Blood Urea Nitrogen 35 mg/dL (9-20); Calcium 8.9 mg/dL (8.4-10.2); Carbon Dioxide 25 mmol/L (22-30); Chloride 105 mmol/L (98-107); Estimated Glomerular Filt Rate 36; Glucose 99 mg/dL (65-110); Magnesium 2.1 mg/dL (1.6-2.3); Osmolality Calculated 298 mOsm/kg (285-295); Potassium 4.0 mmol/L (3.4-5.0); Sodium 140 mmol/L (137-145); Uric Acid 8.9 mg/dL (3.5-8.5)
[2025-08-15 07:38] LABS: Hemoglobin A1C 7.5 % (<5.7)
== END 2025-08-15 06:55 | disposition home or self-care (01) ==
LOC: CHSLAB 06:56
PROVIDERS: PCP Family Medicine; Visit Provider Family Medicine
DX: E11.9 Type 2 diabetes mellitus without complications (principal); N18.30 Chronic kidney disease, stage 3 unspecified; M10.9 Gout, unspecified; I48.19 Other persistent atrial fibrillation
CPT/HCPCS: 36415; 80048; 83036; 83735; 84550; 85027

== ENCOUNTER 2025-09-21 06:52 | Outpatient (NON) | payer MEDICARE, SELFPAY ==
--- OUTSIDE RECORDS SUMMARY | 2025-03-15 08:00 | XMS_ITS ---
Author Organization [facility] Address [address] [place], [place] [address] Care Team Providers Care Inspector Government Property Name Role Phone JOVI PADRON Unavailable [phone] David Reyes Unavailable Unavailable Allergies Allergen (clinical drug ingredient) Drug/Non Drug Allergy documented on EMR Reaction Allergy Type Onset Date Status cefazolin ceFAZolin Unknown Drug Allergy Active REASON FOR VISIT *General care Medications Medication SIG (Take, Route, Frequency, Duration) Notes Start Date End Date Status Betamethasone Valerate 0.1 % Cream External; Duration: 10 Days Active Atorvastatin Calcium 20 MG Tablet Oral; Duration: 30 Days Acti ve Omeprazole 40 MG Capsule Delayed Release Oral; Duration: 30 Days A ctive QUEtiapine Fumarate 25 MG Tablet Oral; Duration: 30 Days Acti ve Basaglar KwikPen 100 UNIT/ML Solution Pen-injector Subcutaneous; Duration: 22 Days Active Furosemide 80 MG Tablet Oral; Duration: 30 Days Active Citalopram Hydrobromide 40 MG Tablet Oral; Duration: 30 Days Acti ve Levothyroxine Sodium 50 MCG Tablet Oral; Duration: 30 Days Acti ve Gabapentin 600 MG Tablet Oral; Duration: 30 Days Active Carvedilol 12.5 MG Tablet Oral; Duration: 30 Days Active Social History Tobacco Use: Social History Observation Description Date Details (start date - stop date) Never Smoker NA - NA Social History Tobacco Use: Social Info Question Answer Notes Tobacco Control (Standard) Tobacco use: Nonsmoker Vital Signs Height 65 in 03/15/2025 Weight 211 lbs 03/15/2025 BMI 35.11 kg/m2 03/15/2025 Height-cm 165.1 cm 03/15/2025 Weight-kg 95.71 kg 03/15/2025 Encounters Encounter Location Date Provider Diagnosis [address] [id number] 03/15/2025 JOVI PADRON Ingrowing nail L60.0 ; Tinea unguium B35.1 ; Atherosclerosis of [place] arteries of extremities with intermittent claudication, bilateral legs I70.213 ; Acquired keratosis [keratoderma] palmaris et plantaris L85.1 ; Localized edema R60.0 ; Pain in right foot M79.671 and Pain in left foot M79.672 Assessments Encounter Date Diagnosis (ICD Code) Assessment Notes Treatment Notes Treatment Clinical Notes Section Notes 03/15/2025 Ingrowing nail (ICD-10 - L60.0) trimmed with relief 03/15/2025 Tinea unguium (ICD-10 - B35.1) Nail Trim 1-10 Nails were trimmed with nail nippers and emery board, reducing length to pink healthy tissue 03/15/2025 Atherosclerosis of [place] arteries of extremities with intermittent claudication, bilateral legs (ICD-10 - I70.213) Check and protect LE bilateral daily. Call if any changes or concerns. 03/15/2025 Acquired keratosis [keratoderma] palmaris et plantaris (ICD-10 - L85.1) Hyperkeratosis #2 lesions: The skin was prepped with isopropyl alcohol. Using a 15-blade scalpel, the hyperkeratotic skin lesions were sharply debrided down to healthy appearing skin. 03/15/2025 Localized edema (ICD-10 - R60.0) Edema Recommendations: Advised patient on edema treatment recommendations. Recommendation for periodic elevation of feet and lower legs through the day. Recommend support compression hose. Recommend dietary restrictions salt intake. Followup with family physician for potential diuretic management if needed. 03/15/2025 Pain in right foot (ICD-10 - M79.671) 03/15/2025 Pain in left foot (ICD-10 - M79.672) Plan Of Treatment Treatment Notes Assessment Notes Ingrowing nail trimmed with relief Tinea unguium Nail Trim 1-10 Nails were trimmed with nail nippers and emery board, reducing length to pink healthy tissue Atherosclerosis of [place] ar teries of extremities with intermittent claudication, bilateral legs Check and protect LE bilateral daily. Ca ll if any changes or concerns. Acquired keratosis [keratode rma] palmaris et plantaris Hyperkeratosis #2 lesions: The skin was prepped with isopropyl alcohol. Using a 15-blade scalpel, the hyperkeratotic skin lesions were sharply debrided down to healthy appearing skin. Localized edema Edema Recommendations: Advised patient on edema treatment recommendations. Recommendation for periodic elevation of feet and lower legs through the day. Recommend support compression hose. Recommend dietary restrictions salt intake. Followup with family physician for potential diuretic management if needed. History and Physical Notes * HPI (History of Present Illness) Category Sub-Category Detail Notes Category Not es HPI General care Patient presents to the office for diabetic foot care. Patient states that their nails are thickened, elongated and painful. Patient states that it is aggravated by shoe gear. Onset is gradual., Patient denies taking blood thinners., Date last seen by Dr. Reyes was 02/2025., Initials [facility] Examination Category Sub-Category Detail Notes Category Not es Constitutional Constitutional The patient is a wake, alert, well developed, well groomed and well nourished. Dermatologic Skin findings: bilateral, Skin is thin, atrophic and lacking pedal hair. Nail pathology: Nails 1-5 bilateral are elongated, thick, discolored, and dystrophic with subungual debris. They are painful to palpation Ulcer: There is no evidence of ulceration noted at this time but patient has pain and shiny skin to heels at pressure points left > right, worse when sitting with pressure to area. No heat. No fluctuance, no skin color differences or drainage Hyperkeratotic Skin Lesion There is evid ence of hyperkeratotic skin lesions present on the, distal aspect of the 1st digit, bilateral Musculoskeletal Muscle Strength Muscle strength is 4/5 in regards to dorsiflexion, plantarflexion, inversion, and eversion in bilateral lower extremities Foot Structure The foot structure i s noted to be, planus, bilaterally Neurologic Gross sensation Gross sensation is intact to light touch Vascular Dorsalis pedis pulse: bilateral, 0/4 Posterior tibial pulse: bilaterally, 1/4 Capillary refill: bilaterally, delayed , greater than 3 seconds Temperature gradient: cool to cool, bila terally Edema: bilateral, +3, pitti ng edema, diffuse, to the level of mid tibia Progress Notes * Jayna CHIN: 5 (79 yo M)Acc No.[id number]:03/15/2025 Progress Notes Patient: Jose Daniel Marie Provider: Estrada PADRON :1945 A ge:79 Y S ex:Male Date:03/15/2025 Address:[address] [place] [address] Subjective: * Chief Complaints: * * General care * HPI: H PI: General care P atient presents to the office for diabetic foot care. Patient states that their nails are thickened, elongated and painful. Patient states that it is aggravated by shoe gear. Onset is gradual., Patient denies taking blood thinners., Date last seen by Dr. Reyes was 02/2025., Initials [facility]. * ROS: G eneral / Constitutional: Patient denies c hills, fatigue, fever. P atient complains of p ain. M usculoskeletal: Patient denies a nkle sprain, broken foot bone. P atient complains of h eel pain, gait (walking problems). P eripheral Vascular: Patient complains of c hronic edema, , cold extremities.? S kin: Patient denies k eloid scar, mole changes. N eurologic: Patient denies p aralysis. P atient complains of b alance difficulty, gait abnormality, loss of strength, pain. * Medical History: Artificial joint Cancer Leg/Feet cramps Open Sores Diabetic Medical History Verified * Surgical History: Denies Past Surgical History. Surgical History verified. * Hospitalization/Major Diagno stic Procedure: Denies Past Hospitalization. Hospitalization Verified. * Family History: N o Family History documented.. F amily History Verified.. * Social History: T obacco Use: T obacco Control (Standard) T obacco use: N onsmoker. Social History Verified. * Medications: T akingCarvedilol 12.5 MG Tablet Oral Gabapentin 600 MG Tablet Oral Levothyroxine Sodium 50 MCG Tablet Oral Citalopram Hydrobromide 40 MG Tablet Oral Furosemide 80 MG Tablet Oral Omeprazole 40 MG Capsule Delayed Release Oral Atorvastatin Calcium 20 MG Tablet Oral Betamethasone Valerate 0.1 % Cream External QUEtiapine Fumarate 25 MG Tablet Oral Basaglar KwikPen 100 UNIT/ML Solution Pen-injector Subcutaneous Medication List reviewed and reconciled with the patientTaking Carvedilol 12.5 MG Tablet Oral Taking Gabapentin 600 MG Tablet Oral Taking Levothyroxine Sodium 50 MCG Tablet Oral Taking Citalopram Hydrobromide 40 MG Tablet Oral Taking Furosemide 80 MG Tablet Oral Taking Omeprazole 40 MG Capsule Delayed Release Oral Taking Atorvastatin Calcium 20 MG Tablet Oral Taking Betamethasone Valerate 0.1 % Cream External Taking QUEtiapine Fumarate 25 MG Tablet Oral Taking Basaglar KwikPen 100 UNIT/ML Solution Pen-injector Subcutaneous Medication List reviewed and reconciled with the patient * Allergies: c eFAZolin: AllergyyesAllergies Verified. Objective: * Vitals: W t: 211 lbs, Wt-k.71 kg, Ht: 65 in, Ht-cm: 165.1 cm, BMI: 35.11 Index, Body Surface Area: 2.09. * Examination: C onstitutional: Constitutional T he patient is awake, alert, well developed, well groomed and well nourished.. D ermatologic: Skin findings: b ilateral, Skin is thin, atrophic and lacking pedal hair.. Nail pathology: N ails 1-5 bilateral are elongated, thick, discolored, and dystrophic with subungual debris. They are painful to palpation. Ulcer: T here is no evidence of ulceration noted at this time but patient has pain and shiny skin to heels at pressure points left > right, worse when sitting with pressure to area. No heat. No fluctuance, no skin color differences or drainage. Hyperkeratotic Skin Lesion T here is evidence of hyperkeratotic skin lesions present on the, distal aspect of the 1st digit, bilateral. M usculoskeletal: Muscle Strength M uscle strength is 4/5 in regards to dorsiflexion, plantarflexion, inversion, and eversion in bilateral lower extremities. Foot Structure T he foot structure is noted to be, planus, bilaterally. N eurologic: Gross sensation G ross sensation is intact to light touch.? V ascular: Dorsalis pedis pulse: b ilateral, 0/4. Posterior tibial pulse: b ilaterally, 1/4. Capillary refill: b ilaterally, delayed, greater than 3 seconds. Temperature gradient: c ool to cool, bilaterally. Edema: b ilateral, +3, pitting edema, diffuse, to the level of mid tibia. Assessment: * Assessment: 1. I ngrowing nail - L60.0 (Primary) 2 . T inea unguium - B35.1 ?3. A therosclerosis of [place] arteries of extremities with intermittent claudication, bilateral legs - I70.213 4 . A cquired keratosis [keratoderma] palmaris et plantaris - L85.1 5 . L ocalized edema - R60.0 6 . P ain in right foot - M79.671 7 . P ain in left foot - M79.672 Plan: * Treatment: 2. T inea unguium Notes: Nail Trim 1-10 Nails were trimmed with nail nippers and emery board, reducing length to pink healthy tissue? 3. A therosclerosis of [place] arteries of extremities with intermittent claudication, bilateral legs Notes: Check and protect LE bilateral daily. Call if any changes or concerns. 4. A cquired keratosis [keratoderma] palmaris et plantaris Notes: Hyperkeratosis #2 lesions: The skin was prepped with isopropyl alcohol. Using a 15-blade scalpel, the hyperkeratotic skin lesions were sharply debrided down to healthy appearing skin. 5. L ocalized edema Notes: Edema Recommendations: Advised patient on edema treatment recommendations. Recommendation for periodic elevation of feet and lower legs through the day. Recommend support compression hose. Recommend dietary restrictions salt intake. Followup with family physician for potential diuretic management if needed. * Immunizations: Immunization record has been reviewed and updated. Billing Information: * Visit Code: 01594 Office Visit, New Pt., Level 3. * Electronic signature of ALFRED PADRON DPM on 09/21/2025 at 06:56 AM SCALE AND SKIP CAR OPERATOR Sign off status: Pending * Provider: Estrada PADRON Date: 0 03/15/2025 Generated for Raj bowling/Evy/Scout on: 1 11/22/2024 06:56 AM SCALE AND SKIP CAR OPERATOR
--- OUTSIDE RECORDS SUMMARY | 2025-09-21 06:56 | XMS_ITS ---
Author Organization Unknown Address [address] [place], [place] [phone] Phone Care Team Providers Care Measurer Machine Name Role Phone MANDY PONCE Attending Unavailable [...] BUN/CREAT - Collect Date/Severino e: 11/06/2024 10:10 [facility] ID: [id number] [place] [address], [phone] LOINC: 3097-3 Test Value Unit Reference Range Code Code System Flag BUN 26 mg/dL L=7 H=20 3094-0 LOINC H CREATININE 1.60 mg/dL L=0.66 H=1.25 2160-0 LOINC H AGE 79 21475-0 LOINC eGFR NON-AFR 44 ml/min eGFR AFR AMER 53 ml/min CHEST 2V - Completed: 2024 11:16 LOINC: \TM00\\10PI\\DRAo\\BM09\ \MRLo\ [address] [address] ---------NAME--------- NUMBER SEX AGE ADMIT DISC. XRAY# F/C TYPE OANH OCHOA [id number] M 79 11/06/24 11/06/24 31781 VB O/P DATE OF : 1945 M/R# [id number] #: [id number] [facility]\ LOCATION: TRANSCRIBED: 11/06/24 11:10 CHEST 2V 26247 COMPLETED:11/06/24 11:16 KIM [id number] {REASON-CHEST: MALIGNANT TUMOR OF KIDNEY PHYSICIAN: MANDY [...] osseous abnormality. IMPRESSION: No acute cardiopulmonary disease. 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 XRAY# F/C TYPE OANH OCHOA [id number] M 79 11/06/24 11/06/24 30873 VB O/P DATE OF : 1945 M/R# [id number] #: [id number] \[facility]\ LOCATION: TRANSCRIBED: 11/06/24 11:51 CT ABD/PEL W+WO CONTRAST 23378 COMPLETED:11/06/24 11:15 KIM 40197 {REASON-CT ABD/PELVIS MALIGNANT TUMOR OF KIDNEY PHYSICIAN: [...] 4. Additional nonacute findings as detailed above. 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 \ITLo\ \UNDo\ \UNDx\ \ITLx\ Reviewed and Electronically Signed by: Fabien Macias DO Signed Date: 11/06/24 11:51 11/06/24.1248.KIM.to JUNE via fax Social History Type Status Start Date End Date Code Code Syst em Smoking History Former smoker 2649159 SNOMED CT Sex Male Medications Medication Start Date End Date Route Frequency Dose Code Code System Medication Instructions Home Meds Artificial Tears Ophthalmic Solution 02/05/2023 Unknown BOTH EYES NEEDED EVERY 2 HOURS 1 unit(s) 243062 RxNorm INSTILL IN 1 EACH BOTH EYES NEEDED EVERY 2 HOURS Aspirin 81MG Oral Tablet, Chewable 02/05/2023 Unknown ORAL ONCE A DAY 81 MILLIGRAMS 565866 RxNorm TAKE 81 MILLIGRAMS ORAL ONCE A DAY Atorvastatin Calcium 20MG Oral Tablet 02/05/2023 Unknown ORAL AT BEDTIME 20 MILLIGRAMS 116344 RxNorm TAKE 20 MILLIGRAMS ORAL AT BEDTIME Carvedilol 12.5MG Oral Tablet 02/05/2023 Unknown ORAL TWICE A DAY WITH MEALS 12.5 MILLIGRAMS 394095 RxNorm TAKE 12.5 MILLIGRAMS ORAL TWICE A DAY WITH MEALS Citalopram Hydrobromide 20MG Oral Tablet 02/05/2023 Unknown ORAL ONCE A DAY 20 MILLIGRAMS 20030327 RxNorm TAKE 20 MILLIGRAMS ORAL ONCE A DAY Clopidogrel 75MG Oral Tablet 02/05/2023 Unknown ORAL ONCE A DAY 75 MILLIGRAMS 792540 RxNorm TAKE 75 MILLIGRAMS ORAL ONCE A DAY Docusate Sodium 100MG Oral Capsule, Liquid Filled 02/05/2023 Unknown ORAL TWICE A DAY 100 MILLIGRAMS 3769651 RxNorm TAKE 100 MILLIGRAMS ORAL TWICE A DAY Famotidine 20MG Oral Tablet 02/05/2023 Unknown ORAL AT BEDTIME 20 MILLIGRAMS 011927 RxNorm TAKE 20 MILLIGRAMS ORAL AT BEDTIME Ferrous Sulfate 325MG Oral Tablet 02/05/2023 Unknown ORAL TWICE A DAY 325 MILLIGRAMS 501305 RxNorm TAKE 325 MILLIGRAMS ORAL TWICE A DAY Gabapentin 600MG Oral Tablet 02/05/2023 Unknown ORAL EVERY 12 HOURS 600 MILLIGRAMS 712811 RxNorm TAKE 600 MILLIGRAMS ORAL EVERY 12 HOURS Lantus 100U/1ML Subcutaneous Solution 02/05/2023 Unknown SUBCUTAN EOUS AT BEDTIME 25 unit(s) 249429 RxNorm INJECT INTO 25 EACH SUBCUTANEO US AT BEDTIME Magnesium Oxide 400MG Oral Tablet 02/05/2023 Unknown ORAL ONCE A DAY 400 MILLIGRAMS 19861226 RxNorm TAKE 400 MILLIGRAMS ORAL ONCE A DAY Methocarbamol 500MG Oral Tablet 02/05/2023 Unknown ORAL NEEDED 4 TIMES A DAY 57934 MILLIGRAMS 159884 RxNorm TAKE 19307 MILLIGRAMS ORAL NEEDED 4 TIMES A DAY Nystatin 744768A/1GM Topical application Cream 02/05/2023 Unknown TOPICAL NEEDED TWICE A DAY 1 unit(s) 712176 RxNorm APPLY TO 1 EACH TOPICAL NEEDED TWICE A DAY Omeprazole 40MG Oral Capsule, Delayed Release 02/05/2023 Unknown ORAL ONCE A DAY 40 MILLIGRAMS 20021105 RxNorm TAKE 40 MILLIGRAMS ORAL ONCE A DAY Tamsulosin HCl 0.4MG Oral Capsule 02/05/2023 Unknown ORAL AT BEDTIME 0.4 MILLIGRAMS 625905 RxNorm TAKE 0.4 MILLIGRAMS ORAL AT BEDTIME Triamcinolone Acetonide 0.1% Topical application Cream 02/05/2023 Unknown TOPICAL NEEDED 3 TIMES A DAY 1 unit(s) 2525444 RxNorm APPLY TO 1 EACH TOPICAL NEEDED 3 TIMES A DAY hydrOXYzine Pamoate 25MG Oral Capsule 02/05/2023 Unknown ORAL NEEDED EVERY 6 HOURS 25 MILLIGRAMS 867925 RxNorm TAKE 25 MILLIGRAMS ORAL NEEDED EVERY 6 HOURS traZODone hydrochloride 50MG Oral Tablet 02/05/2023 Unknown ORAL AT BEDTIME 50 MILLIGRAMS 681220 RxNorm TAKE 50 MILLIGRAMS ORAL AT BEDTIME [...] Status Code Code System GROSS HEMATURIA active 018883112 SNOM ED-CT Allergies and Adverse Reactions Allergy Substance Reaction Severity Start Date Concern Status Co de Code System CEPHALOSPORIN Active 749097067 SNOMED-C T Plan of Treatment CT Abdomen/Pelvis WWO Contrast (59095) 11/27/2025 Encounters Encounter Diagnosis Start Date Code Code Sys tem Malignant neoplasm of unspec ified kidney, except renal pelvis 11/06/2024 SNOMED-CT Personal Care Team Section Performer Name Performer Role Active Date Inactive CHEY Smith PCP - Primary care physician 9 Imaging Narrative Notes [facility] 11/06/2024 12:[address] [address] ---------NAME--------- NUMBER SEX AGE ADMIT DISC. XRAY# F/C TYPE OANH OCHOA [id number] M 79 11/06/24 11/06/24 65492 VB O/P DATE OF : 1945 M/R# [id number] PH#: [phone] LOCATION: TRANSCRIBED: 11/06/24 11:51 CT ABD/PEL W+WO CONTRAST 88579 COMPLETED:11/06/24 11:15 KIM 41777 {REASON-CT ABD/PELVIS MALIGNANT TUMOR OF KIDNEY PHYSICIAN: [...] 4. Additional nonacute findings as detailed above. 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 XRAY# F/C TYPE OANH OCHOA [id number] 79 11/06/24 11/06/24 83100 VB O/P DATE OF : 1945 M/R# [id number] #: [id number] LOCATION: TRANSCRIBED: 11/06/24 11:10 CHEST 2V 61358 COMPLETED:11/06/24 11:16 KIM 53695 {REASON-CHEST: MALIGNANT TUMOR OF KIDNEY PHYSICIAN: MANDY [...] osseous abnormality. IMPRESSION: No acute cardiopulmonary disease. 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 Reviewed and Electronically Signed by: Pantera Kiran MD Signed Date: 11/06/24 11:10
--- OUTSIDE RECORDS SUMMARY | 2025-09-21 06:56 | XMS_ITS | Clinical Summary ---
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 02/14/2021 Coronary artery disease invo lving [place] coronary artery of [place] heart without angina pectoris 02/07/2021 Other retention of urine 12/11/2020 Overview (12/11/2020): Added automatically from request for surgery [id number] Atrial flutter 11/14/2019 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 Non-functioning [...] 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/19/2022 11/10/2024 Symptomatic anemia 09/08/2021 retirement current use of antiarrhythmic drug 6 11/10/2024 Chronic anticoagulation 07/03/201610/28 Nonischemic cardiomyopathy 0 12/17/2017 Diastolic heart failure 11/26 Encounters Date Type Department Care Team Description 09/11/2025 10:21 AM PILATES INSTRUCTOR - 09/11/2025 11:59 PM PILATES INSTRUCTOR Hospital Encounter [facility] [address] [place] [address] David Reid MD Petrelli, Brandy L, OBSERVATION ASSISTANT Discharge Disposition: Home or Self Care (Routine Discharge) 09/11/2025 Travel 08/10/2025 Transcribe Orders [facility] Pre Access Team [address] [place] [address] David Reid MD 06/27/2025 2:30 AM CDT Allied Health/Nurse Visit [facility] [address] [place] [address] Yvonne Mosqueda MD from Last 3 Months Immunizations Immunization Administration Dates Next Due Influenza Adult (Generic) 07/22/2021,,08/23/2019,2017,09/10/2017 PFIZER COVID-19 (ORIGINAL FORMULATION, PURPLE CAP) mRNA, LNP-S, PF, 30 MCG/0.3 ML DOSE 07/31/2021,11/20/2020,2020 Td, Adsorbed, Preservative F ree, Adult Use, Lf Unspecified 04/01/2020 Tdap (Boostrix) 04/29/2022 Family History Medical History Relation Comments Diabetes Brother Heart Disease Father Hypertension Father VA Father Heart Disease Mother Hypertension Mother VA Mother Coronary artery disease Other Relation Status [...] from your doctor or pharmacy? Often 01/28/2025 [facility] Utilities Answer Date Recorded In the past 12 months has th e electric, gas, oil, or water company threatened to shut off services in your [...] week 01/28/2025 How often do you attend rastafarian or latter day serv ices? Never 01/28/2025 Do you belong to any clubs o r organizations such as rastafarian groups, unions, fraternal or athletic groups, or [...] move on to questions 3-9 0 02/18/2022 [facility] [place] of Occupat ional Health - Occupational Stress [...] place to sleep or slept in a residential (including now)? No 04/17/2023 Housing Stability Vital Sign Answer Lb e Recorded In the last 12 months, was t here a time when you were not able to pay the mortgage or rent on time? No 01/28/2025 In the past 12 months, how m any times have you moved where you were living? 1 01/28/2025 At any time in the past [address] [facility], were you homeless or living in a residential (including now)? No 01/28/2025 Education Answer Date [...] st Contact Info) Description 10/05/2025 1:30 AM PILATES INSTRUCTOR Allied Health/Nurse Visit [address] [address] Yvonne Mosqueda MD [address] [place] [address] 11/21/2025 12:30 PM PILATES INSTRUCTOR Allied Health/Nurse Visit [facility] [address] [place] [address] Jimena Valle NP [address] [facility] [address] [place] [address] 11/21/2025 1:00 PM PILATES INSTRUCTOR Office Visit [facility] [address] [place] [address] Jimena Valle NP [address] [facility] [address] [place] [address] Health Maintenance Due Date Last Done Comments ASCVD LDL 1944 ASCVD Statin 1944 Kidney Health Evaluation 1944 Lipid Panel 1944 Diabetes: Retinopathy Eye Exam 1962 Annual Medicare Wellness Visit 2009 RSV Immunization or 60+ Years (1 - 1-dose 75+ series) 2019 Hemoglobin A1C 12/22/2022 06/24/2022, 11/2021, 10/12/2019, Additional history exists PHQ-2 (Physician [place]) 09/27/2024 COVID-19 Vaccine ( season) 2025 07/23/2022, 07/31/2021, 11/20/2020, Additional history [...] able to self-administer medications General No Marita Lin, RN Health - patient able to perform [...] transitions and discharge planning Lifestyle No Malinda Barillas, RN Medical Devices Implanted Type Area Foreign Broadcast Specialist Device Identifier Shelf Expiration Date Model / Serial / Lot Barakat Amplatzer Amulet Left Atrial Appendage Occluder- [id number] Implanted:04/2022 by Yvonne Mosquead MD (Quantity not on file) Closure Device Heart BARAKAT VASCULAR 06/26/2026 [id number] / / [id number] St Brad Dual Chamber Pacemaker Implanted:06/29 by Yvonne Mosqueda MD (Quantity not on file) Pacemaker [facility] - DIV [facility] BRAD [id number] / [id number] / Barakat Quadra Allure Biv Ppm-06/21/2024 Implanted:05/29 by Yvonne Mosqueda MD (Quantity not on file) Pacemaker BARAKAT PACER 09/26/2025 [id number] / [id number] / Agent Hemostatic Surgiflo 8 Ml Kit - [id number] Implanted:Qty: 1 on 04/16/2023 by Rosario Galvan MD at [facility] Sealant Right: Kidney [employer] 05/27/2024 [id number] / / [id number] Right Ventricular Lead Replacement- Implanted:07/29 by Yvonne Mosqueda MD (Quantity not on file) Explanted Type Area Foreign Broadcast Specialist Device Identifier Shelf Expiration Date Model / Serial / Lot St Brad Bi-Ventricular Pacemaker- 016 Implanted:2015 by Yvonne Mosqueda MD (Quantity not on file) Explanted:2023 by Yvonne Mosqueda MD (Quantity not on file) Procedures Procedure Name Priority Date/Time Associated Diagnosis Comments XR SPEECH SWALLOW SFL ONLY Routine 09/11/2025 10:55 AM PILATES INSTRUCTOR Dysphagia COLONOSCOPY Routine 07/14/2023 11:[address] ABD+PEL WWO CON Routine 10/01/2022 2: 31 PM PILATES INSTRUCTOR Hematuria, microscopic HEMOGLOBIN, GLYCOSYLATED Routine 06/24/2022 9:18 AM CDT from Last 3 Months or Most Recently Relevant to Health Maintenance Results * SFL - XR SPEECH SWALLOW (09/11/2025 10:55 AM PILATES INSTRUCTOR) Anatomical Region Laterality Modality NA Radiographic Dede ging, Radiographic Imaging 09/11/2025 11:1 3 AM PILATES INSTRUCTOR Impressions 09/11/2025 11:15 AM PILATES INSTRUCTOR IMPRESSION: Overall, functional swallow. Please reference the speech pathologist report for complete details. Ordered By: DAVID REID Interpreted By: Jerry Nelson MD, 09/11/2025 11:13 AM Narrative 09/11/2025 11:15 AM PILATES INSTRUCTOR [address] [place] [address] Examination: Video esophagogram. Exam time: 1051 hours. Clinical history: Dysphagia. Comparison: None. Technique: Fluoroscopic monitoring at the direction of the speech pathologist. 3.9 minutes of fluoroscopy time was used. 13 cine series were captured for review. Findings: The patient was offered liquids, puree, MM5 and solids sequentially at the direction of the speech pathologist. Overall, the swallow proceeded rapidly with all consistencies. Premature spillage to the vallecula was observed with several trials. There were vallecular residuals with solids which cleared on liquid wash. No nasopharyngeal reflux, penetration or aspiration was observed. Procedure Note Jerry Nelson MD - 09/11/[address] [place] [address] Examination: Video esophagogram. Exam time: 1051 hours. Clinical history: Dysphagia. Comparison: None. Technique: Fluoroscopic monitoring at the direction of the speechpathologist. 3.9 minutes of fluoroscopy time was used. 13 cine series werecaptured for review. Findings: The patient was offered liquids, puree, MM5 and solidssequentially at the direction of the speech pathologist. Overall, theswallow proceeded rapidly with all consistencies. Premature spillage tothe vallecula was observed with several trials. There were vallecularresiduals with solids which cleared on liquid wash. No nasopharyngealreflux, penetration or aspiration was observed. IMPRESSION: Overall, functional swallow. Please reference the speech pathologistreport for complete details. Ordered By: DAVID REID Interpreted By: Jerry Nelson MD, 09/11/2025 11:13 AM David Reid MD FLUOROSCOPY Final Result * Colonoscopy (07/14/2023 11:45 AM CDT) [facility] PROCEDURE ORDERAB LES Final Result * CT ABD+PEL WWO CON (10/01/2022 2:31 PM PILATES INSTRUCTOR) Anatomical Region Laterality Modality Abdomen Computed Tomogra phy 10/03/2022 10:4 4 AM PILATES INSTRUCTOR Impressions 10/03/2022 10:51 AM PILATES INSTRUCTOR Impression: 1. A 4 cm solid enhancing mass lesion is again seen involving the upper pole of the right kidney. 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 2. No suspicious lymphadenopathy is identified. 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
--- OUTSIDE RECORDS SUMMARY | 2025-09-21 06:56 | XMS_ITS ---
Author Organization Unknown Address [address] [place] [phone] Phone Care Team Providers Care Alarm Adjuster Name Role Phone MANDY PONCE Attending Unavailable [...] Code Syst em Smoking History Former smoker 7440029 SNOMED CT Sex Male Medications Medication Start Date End Date Route Frequency Dose Code Code System Medication Instructions Home Meds Artificial Tears Ophthalmic Solution 02/05/2023 Unknown BOTH EYES NEEDED EVERY 2 HOURS 1 unit(s) 589573 RxNorm INSTILL IN 1 EACH BOTH EYES NEEDED EVERY 2 HOURS Aspirin 81MG Oral Tablet, Chewable 02/05/2023 Unknown ORAL ONCE A DAY 81 MILLIGRAMS 360317 RxNorm TAKE 81 MILLIGRAMS ORAL ONCE A DAY Atorvastatin Calcium 20MG Oral Tablet 02/05/2023 Unknown ORAL AT BEDTIME 20 MILLIGRAMS 654236 RxNorm TAKE 20 MILLIGRAMS ORAL AT BEDTIME Carvedilol 12.5MG Oral Tablet 02/05/2023 Unknown ORAL TWICE A DAY WITH MEALS 12.5 MILLIGRAMS 19991127 RxNorm TAKE 12.5 MILLIGRAMS ORAL TWICE A DAY WITH MEALS Citalopram Hydrobromide 20MG Oral Tablet 02/05/2023 Unknown ORAL ONCE A DAY 20 MILLIGRAMS 813074 RxNorm TAKE 20 MILLIGRAMS ORAL ONCE A DAY Clopidogrel 75MG Oral Tablet 02/05/2023 Unknown ORAL ONCE A DAY 75 MILLIGRAMS 010973 RxNorm TAKE 75 MILLIGRAMS ORAL ONCE A DAY Docusate Sodium 100MG Oral Capsule, Liquid Filled 02/05/2023 Unknown ORAL TWICE A DAY 100 MILLIGRAMS 7696555 RxNorm TAKE 100 MILLIGRAMS ORAL TWICE A DAY Famotidine 20MG Oral Tablet 02/05/2023 Unknown ORAL AT BEDTIME 20 MILLIGRAMS 043096 RxNorm TAKE 20 MILLIGRAMS ORAL AT BEDTIME Ferrous Sulfate 325MG Oral Tablet 02/05/2023 Unknown ORAL TWICE A DAY 325 MILLIGRAMS 880725 RxNorm TAKE 325 MILLIGRAMS ORAL TWICE A DAY Gabapentin 600MG Oral Tablet 02/05/2023 Unknown ORAL EVERY 12 HOURS 600 MILLIGRAMS 597450 RxNorm TAKE 600 MILLIGRAMS ORAL EVERY 12 HOURS Lantus 100U/1ML Subcutaneous Solution 02/05/2023 Unknown SUBCUTAN EOUS AT BEDTIME 25 unit(s) 027292 RxNorm INJECT INTO 25 EACH SUBCUTANEO US AT BEDTIME Magnesium Oxide 400MG Oral Tablet 02/05/2023 Unknown ORAL ONCE A DAY 400 MILLIGRAMS 186077 RxNorm TAKE 400 MILLIGRAMS ORAL ONCE A DAY Methocarbamol 500MG Oral Tablet 02/05/2023 Unknown ORAL NEEDED 4 TIMES A DAY 25412 MILLIGRAMS 877780 RxNorm TAKE 83498 MILLIGRAMS ORAL NEEDED 4 TIMES A DAY Nystatin 877509U/1GM Topical application Cream 02/05/2023 Unknown TOPICAL NEEDED TWICE A DAY 1 unit(s) 749150 RxNorm APPLY TO 1 EACH TOPICAL NEEDED TWICE A DAY Omeprazole 40MG Oral Capsule, Delayed Release 02/05/2023 Unknown ORAL ONCE A DAY 40 MILLIGRAMS 315328 RxNorm TAKE 40 MILLIGRAMS ORAL ONCE A DAY Tamsulosin HCl 0.4MG Oral Capsule 02/05/2023 Unknown ORAL AT BEDTIME 0.4 MILLIGRAMS 587985 RxNorm TAKE 0.4 MILLIGRAMS ORAL AT BEDTIME Triamcinolone Acetonide 0.1% Topical application Cream 02/05/2023 Unknown TOPICAL NEEDED 3 TIMES A DAY 1 unit(s) 1605991 RxNorm APPLY TO 1 EACH TOPICAL NEEDED 3 TIMES A DAY hydrOXYzine Pamoate 25MG Oral Capsule 02/05/2023 Unknown ORAL NEEDED EVERY 6 HOURS 25 MILLIGRAMS 290160 RxNorm TAKE 25 MILLIGRAMS ORAL NEEDED EVERY 6 HOURS traZODone hydrochloride 50MG Oral Tablet 02/05/2023 Unknown ORAL AT BEDTIME 50 MILLIGRAMS 258266 RxNorm TAKE 50 MILLIGRAMS ORAL AT BEDTIME [...] Status Code Code System GROSS HEMATURIA active 754762213 SN ED-CT Allergies and Adverse Reactions Allergy Substance Reaction Severity Start Date Concern Status Co de Code System CEPHALOSPORIN Active 179038861 SNOMED-C T Plan of Treatment CT Abdomen/Pelvis WWO Contrast (59920) 11/27/2025 Encounters Encounter Diagnosis Start Date Code Code Sys tem Benign prostatic hyperplasia without lower urinary tract symptoms 09/08/2023 SNOMED-CT Personal Care Team Section Performer Name Performer Role Active Date Inactive CHEY Smith PCP - Primary care physician 9
--- OUTSIDE RECORDS SUMMARY | 2025-09-21 06:56 | XMS_ITS ---
Author Organization Unknown Address [address] [place], [place] [address] Phone Care Team Providers Care Hot Wort Settler Name Role Phone MANDY PONCE Attending Unavailable [...] PSA-DIAGNOSTIC - Collect Lb e/Time: 04/05/2024 11:41 [facility] [id number] [address] [place], [place], [id number] LOINC: 2857-1 Test Value Unit Reference Range Code Code System Flag PSA DIAG < 0.064 ng/mL L=0.00 H=4.00 2857-1 LOINC Social History Type Status Start Date End Date Code Code Syst em Smoking History Former smoker 3699083 SNOMED CT Sex Male Medications Medication Start Date End Date Route Frequency Dose Code Code System Medication Instructions Home Meds Artificial Tears Ophthalmic Solution 02/05/2023 Unknown BOTH EYES NEEDED EVERY 2 HOURS 1 unit(s) 504358 RxNorm INSTILL IN 1 EACH BOTH EYES NEEDED EVERY 2 HOURS Aspirin 81MG Oral Tablet, Chewable 02/05/2023 Unknown ORAL ONCE A DAY 81 MILLIGRAMS 913993 RxNorm TAKE 81 MILLIGRAMS ORAL ONCE A DAY Atorvastatin Calcium 20MG Oral Tablet 02/05/2023 Unknown ORAL AT BEDTIME 20 MILLIGRAMS 412626 RxNorm TAKE 20 MILLIGRAMS ORAL AT BEDTIME Carvedilol 12.5MG Oral Tablet 02/05/2023 Unknown ORAL TWICE A DAY WITH MEALS 12.5 MILLIGRAMS 087130 RxNorm TAKE 12.5 MILLIGRAMS ORAL TWICE A DAY WITH MEALS Citalopram Hydrobromide 20MG Oral Tablet 02/05/2023 Unknown ORAL ONCE A DAY 20 MILLIGRAMS 662611 RxNorm TAKE 20 MILLIGRAMS ORAL ONCE A DAY Clopidogrel 75MG Oral Tablet 02/05/2023 Unknown ORAL ONCE A DAY 75 MILLIGRAMS 555448 RxNorm TAKE 75 MILLIGRAMS ORAL ONCE A DAY Docusate Sodium 100MG Oral Capsule, Liquid Filled 02/05/2023 Unknown ORAL TWICE A DAY 100 MILLIGRAMS 2285835 RxNorm TAKE 100 MILLIGRAMS ORAL TWICE A DAY Famotidine 20MG Oral Tablet 02/05/2023 Unknown ORAL AT BEDTIME 20 MILLIGRAMS 864046 RxNorm TAKE 20 MILLIGRAMS ORAL AT BEDTIME Ferrous Sulfate 325MG Oral Tablet 02/05/2023 Unknown ORAL TWICE A DAY 325 MILLIGRAMS 959722 RxNorm TAKE 325 MILLIGRAMS ORAL TWICE A DAY Gabapentin 600MG Oral Tablet 02/05/2023 Unknown ORAL EVERY 12 HOURS 600 MILLIGRAMS 408718 RxNorm TAKE 600 MILLIGRAMS ORAL EVERY 12 HOURS Lantus 100U/1ML Subcutaneous Solution 02/05/2023 Unknown SUBCUTAN EOUS AT BEDTIME 25 unit(s) 281766 RxNorm INJECT INTO 25 EACH SUBCUTANEO US AT BEDTIME Magnesium Oxide 400MG Oral Tablet 02/05/2023 Unknown ORAL ONCE A DAY 400 MILLIGRAMS 19861226 RxNorm TAKE 400 MILLIGRAMS ORAL ONCE A DAY Methocarbamol 500MG Oral Tablet 02/05/2023 Unknown ORAL NEEDED 4 TIMES A DAY 95146 MILLIGRAMS 561308 RxNorm TAKE 82458 MILLIGRAMS ORAL NEEDED 4 TIMES A DAY Nystatin 053882Q/1GM Topical application Cream 02/05/2023 Unknown TOPICAL NEEDED TWICE A DAY 1 unit(s) 298005 RxNorm APPLY TO 1 EACH TOPICAL NEEDED TWICE A DAY Omeprazole 40MG Oral Capsule, Delayed Release 02/05/2023 Unknown ORAL ONCE A DAY 40 MILLIGRAMS 20021105 RxNorm TAKE 40 MILLIGRAMS ORAL ONCE A DAY Tamsulosin HCl 0.4MG Oral Capsule 02/05/2023 Unknown ORAL AT BEDTIME 0.4 MILLIGRAMS 852768 RxNorm TAKE 0.4 MILLIGRAMS ORAL AT BEDTIME Triamcinolone Acetonide 0.1% Topical application Cream 02/05/2023 Unknown TOPICAL NEEDED 3 TIMES A DAY 1 unit(s) 5948858 RxNorm APPLY TO 1 EACH TOPICAL NEEDED 3 TIMES A DAY hydrOXYzine Pamoate 25MG Oral Capsule 02/05/2023 Unknown ORAL NEEDED EVERY 6 HOURS 25 MILLIGRAMS 674696 RxNorm TAKE 25 MILLIGRAMS ORAL NEEDED EVERY 6 HOURS traZODone hydrochloride 50MG Oral Tablet 02/05/2023 Unknown ORAL AT BEDTIME 50 MILLIGRAMS 992058 RxNorm TAKE 50 MILLIGRAMS ORAL AT BEDTIME [...] Status Code Code System GROSS HEMATURIA active 449067751 SNOM ED-CT Allergies and Adverse Reactions Allergy Substance Reaction Severity Start Date Concern Status Co de Code System CEPHALOSPORIN Active 338630599 SNOMED-C T Plan of Treatment CT Abdomen/Pelvis WWO Contrast (62138) 11/27/2025 Encounters Encounter Diagnosis Start Date Code Code Sys tem Encounter for follow-up exam ination after completed treatment for malignant neoplasm 04/05/2024 SNOMED- CT Personal Care Team Section Performer Name Performer Role Active Date Inactive CHEY Smith PCP - Primary care physician 9
--- OUTSIDE RECORDS SUMMARY | 2025-09-21 06:56 | XMS_ITS | Patient Health Record ---
Author Organization [facility] Address [address] [place], [place] [id number] Care Team Providers Care Finance Officer Name Role Phone JOVI PADRON Unavailable [phone] David Reyes Unavailable Unavailable Allergies Allergen (clinical [...] 03/15/2025 Encounters Encounter Location Date Provider Diagnosis [address] [phone] 03/15/2025 JOVI PADRON Ingrowing nail L60.0 ; Tinea unguium B35.1 ; Atherosclerosis of [place] arteries of extremities with intermittent claudication, bilateral [...] to pink healthy tissue 03/15/2025 Atherosclerosis of [place] arteries of extremities with intermittent claudication, bilateral [...] Date Coverage End Date [employer] [address] [place] [phone] [id number] NONE Jose Daniel Chin Self - patient is the insured Medical (General) History Medical History History ICD Code artificial joint Cancer Leg/Feet cramps Open Sores Diabetic
--- OUTSIDE RECORDS SUMMARY | 2025-09-21 06:56 | XMS_ITS | Encounter Summary ---
Author Organization [facility] Address [address] [place] [address] Care Team Providers Care Odd Ticket Clerk Name Role Phone Eran Masterson MD Primary Care Provider [phone] Yvonne Mosqueda MD Unavailable Sohail Stafford MD Unavailable Unavail able Hailee Watts MD Unavailable [phone] Loni Ang MD Unavailable Monica Gauthier MD, Devin Unavailable [phone] Jori MATHIAS MD, Courtney Unavailable [phone] Noemi Huynh MD Unavailable Mario Salazar MD Unavailable [phone] Marti Arreola RN Unavailable Unavailable David Reyes MD Primary Care Provider [phone] Encounter Details Date Type Department Care Team (Late st Contact Info) Description 07/16/2016 Abstract [facility] [address] [place] [address] Yvonne Mosqueda MD [address] [place] [address] Social History Tobacco Use Types Packs/Day Years Used Date Smoking Tobacco: Former Smokeless Tobacco: Current Chew Comments:Past smoker, regina hooper uses smokeless tobacco ([place]). Alcohol Use Standard Drinks/Week Comments No 0 [...] Upcoming Encounters Date Type Department Care Team ([facility] st Contact Info) Description 10/05/2025 1:30 AM SENIOR DIRECTOR Allied Health/Nurse Visit [facility] [address] [place] [address] Yvonne Mosqueda MD [address] [place] [address] 11/21/2025 12:30 PM SENIOR DIRECTOR Allied Health/Nurse Visit [facility] [address] [place] [address] Jimena Valle NP [address] [address] 11/21/2025 1:00 PM SENIOR DIRECTOR Office Visit [facility] [address] [place] [address] Jimena Valle NP [address] [address] documented as of this encounter Procedures Procedure [...] Out 08/23/2021 08/23/2021 08/23/2021 7:52 PM SENIOR DIRECTOR COVID-19 Rule Out 10/04/2021 10/04/2021 10/04/2021 8:30 PM SENIOR DIRECTOR COVID-19 Rule Out 11/08/2021 11/08/2021 11/08/2021 6:51 PM SENIOR DIRECTOR COVID-19 Rule Out 12/13/2021 12/13/2021 12/13/2021 7:13 PM CDT COVID-19 Rule Out 12/30/2021 12/30/2021 12/30/2021 8:06 PM CDT COVID-19 Rule Out 06/21/2022 06/21/2022 06/21/2022 9:41 PM CDT documented as of this encounter Care Teams Odd Ticket Clerk Relationship Specialty Start Date End Date Eran Masterson MD [address] [place] [phone] PCP - General FAMILY PRACTICE 07/03/16 09/10/25 David Reyes MD [address] [place] [address] PCP - General [facility] PR[facility] 09/11/25 Yvonne Mosqueda MD [address] [place] [address] CLINICAL CARDIAC ELECTROPHYSIOLOGY 07/03/16 Sohail Stafford MD [address] [place] [address] CARDIOVASCULAR DISEASE 11/03/16 11/12/24 Hailee Watts MD [address] [place], [place] [address] ENDOCRINOLOGY 09/13/19 05/18/22 Loni Ang MD [address] [place] [address] INTERNAL MEDICINE 09/13/19 11/25/20 Oscra Anderson MD [facility] DEPT OF SURGERY - [place] [address] [place] [address] NEUROLOGICAL SURGERY 11/26/20 11/22/22 Theresa Hsieh III, MD [facility] DEPT OF SURGERY - [place] [address] Consulting Physician UROLOGY 01/22/21 11/22/22 Noemi Huynh MD [address] [place] [phone] OTOLARYNGOLOGY 01/22/21 11/22/22 Mario Salazar MD [address] [place] [phone] UROLOGY 11/23/22 Marti Arreola RN Registered Nurse CARE MANAGEMENT 01/29/25 02/26/25 documented as of this encounter
--- OUTSIDE RECORDS SUMMARY | 2025-09-21 06:56 | XMS_ITS | Encounter Summary ---
Author Organization [facility] Address [address] [place] [address] Care Team Providers Care Cigar Head Holer Name Role Phone Eran Masterson MD Primary Care Provider [phone] Yvonne Mosqueda MD Unavailable Sohail Stafford MD Unavailable Unavail able Hailee Watts MD Unavailable [phone] Monica Gauthier MD, Devin Unavailable [phone] Jori MATHIAS MD, Courtney Unavailable [phone] Noemi Huynh MD Unavailable Mario Salazar MD Unavailable [phone] Marti Arreola RN Unavailable Unavailable David Reyes MD Primary Care Provider [phone] Encounter Details Date Type Department Care Team (Late st Contact Info) Description 01/01/2022 Hospital Orders Only [facility] [address] [place], [place] [address] Mimi Roberts Anesthesia Record Procedure Summary Procedure Name Responsible Anesthesiologist Anesthesia Start Time Anesthesia Stop Time XA LEFT ATRIAL APPENDAGE CLOSURE Ling Scott, 01/02/22 1503 01/02/22 1703 Events Date Time [...] opportunity for questions and acknowledgement of understanding. 1703 An Stop Meds * Agents No agents [...] By: Capnography, Auscultation, Chest Rise; Placed By: SAIL FINISHER MACHINE; Removal Date: 01/02/22; Removal Time: 165301/02/22 1523 by Raina Davidson CRNA 01/02/22 1654 by Autumn Baca CRNA Arterial Line Placement Date: 01/02/22; Placement Time: 153 (created via procedure documentation); Placed Outside of This Facility?: No; Size: 20; Orientation: Right; Location: Radial; Site Prep: Chlorhexidine; Local Anesthetic: None; Insertion Attempts: 2; Patient Tolerance: Tolerated well; Removal Date: 01/02/22; Removal Time: 175; Removal Reason: Therapy Completed 01/02/22 1539 by Esther Goins MD,PHD 01/02/22 175 by Pearl Graham RN Power injectable Peripheral IV Placement Date: 01/02/22; Placement Time: 154 (created via procedure documentation); Placed Outside of This Facility?: No; Size: 20 G; Orientation: Left; Location: Hand; Site Prep: Chlorhexidine; Local Anesthetic: None; Insertion attempts: 1; Ultrasound-guided Placement?: No; Patient Tolerance: Tolerated well; Removal Date: 01/03/22; Removal Time: 1015; Removal Reason: Patient Discharged 01/02/22 1540 by Esther Goins MD,PHD 01/03/22 1015 by Meli Carpenter RN Peripheral IV Placement Date: 01/02/22; Placement Time: 154 (created via procedure documentation); Placed Outside of [...] Comments:Past smoker, regina hooper uses smokeless tobacco ([place]). Alcohol Use Standard Drinks/Week Comments No 0 [...] Assessment Author Status No 09/08/2021 7:06 PM GROUP TEACHER Activ e * RETIRED Are you blind or do you have serious difficulty seeing, even when wearing glasses? Answer Date of Assessment Author Status No 09/08/2021 7:06 PM GROUP TEACHER Activ e * Do you have serious [...] 7:06 PM Zoya Parisi RN Active documented as of this encounter Mental Status * Because of a physical, mental, or emotional condition, do you have serious difficulty concentrating, remembering, or making decisions? Answer Entry Date Author Status No 09/08/2021 7:06 PM Zoya Parisi RN Active documented in this encounter Plan of Treatment Upcoming Encounters Date Type Department Care Team (Late st Contact Info) Description 10/05/2025 1:30 AM GROUP TEACHER Allied Health/Nurse Visit [facility] [address] [place] [address] Yvonne Mosqueda MD [address] [place] [address] 11/21/2025 12:30 PM GROUP TEACHER Allied Health/Nurse Visit [facility] [address] [place] [address] Jimena Valle, PIANO TEACHER [address] [phone] 11/21/2025 1:00 PM GROUP TEACHER Office Visit [facility] [address] [place] [address] Jimena Valle, PIANO TEACHER [address] [phone] documented as of this encounter Goals Goal Patient Goal Type Associated Problems Recent Progress Patient-Stated? Author Medications - able to self-administer medications General Marita Hanks RN Health - patient able to perform ADLs independently General Marita Hanks RN Patient will return to prior living situation and remain independent in ADLs upon discharge from hospital General Marita Hanks RN documented as of this encounter Visit Diagnoses Not on filedocumented in this encounter Additional Health Concerns Infection Onset Date Last Indicated Resolved Time 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 08/20/2017 COVID-19 Rule Out 06/21/2022 06/21/2022 06/21/2022 9:41 PM CDT documented as of this encounter Care Teams Cigar Head Holer Relationship Specialty [place] [address] [place] [address] [place] [phone] PCP - General FAMILY PRACTICE 07/03/16 09/10/25 David Reyes MD [address] [place] [address] PCP - General FAMILY PRACTICE 09/11/25 Yvonne Mosqueda MD [address] [place] [phone] CLINICAL CARDIAC ELECTROPHYSIOLOGY 07/03/16 Sohail Stafford MD [address] [place] [address] CARDIOVASCULAR DISEASE 11/03/16 11/12/24 Hailee Watts MD [address] [place] [address] ENDOCRINOLOGY 09/13/19 05/18/22 Oscar Anderson MD [facility] DEPT OF SURGERY - NEUROS[place] [address] NEUROLOGICAL SURGERY 11/26/20 11/22/22 Theresa Hsieh III, MD [facility] DEPT OF SURGERY - NEUROSURGERY [place] [address] Consulting Physician UROLOGY 01/22/21 11/22/22 Noemi Huynh MD [address] [place] [address] OTOLARYNGOLOGY 01/22/21 11/22/22 Mario Salazar MD [address] [place] [phone] UROLOGY 11/23/22 Marti Arreola, RN Registered Nurse CARE MANAGEMENT 01/29/25 02/26/25 documented as of this encounter
--- OUTSIDE RECORDS SUMMARY | 2025-09-21 06:56 | XMS_ITS | Encounter Summary ---
Author Organization [facility] Address [address] [place] [address] Care Team Providers Care Reject Opener Name Role Phone Eran Masterson MD Primary Care Provider [phone] Yvonne Mosqueda MD Unavailable Sohail Stafford MD Unavailable Unavail able Hailee Watts MD Unavailable [phone] Monica Gauthier MD, Devin Unavailable [phone] Jori MATHIAS MD, Courtney Unavailable [phone] Noemi Huynh MD Unavailable Mario Salazar MD Unavailable [phone] Marti Arreola RN Unavailable Unavailable David Reyes MD Primary Care Provider [phone] Encounter Details Date Type Department Care Team (Late st Contact Info) Description 01/06/2022 Hospital Follow-up Call [facility] Cardiovascular Care Unit [address] [place] [address] Davina Walters, RN Social History Tobacco Use Types Packs/Day Years Used Date Smoking Tobacco: Former Cigarettes 3 3 1 11/09/1962 - 09/08/1966 Smokeless Tobacco: Former Chew Quit: 09/08/1963 Comments:Past smoker, regina hooper uses smokeless tobacco ([place]). Alcohol Use Standard Drinks/Week Comments No 0 [...] AM SANDYT Yefri Benitez RN Active documented as of this encounter Mental Status * Because of a physical, mental, or emotional condition, do you have serious difficulty concentrating, remembering, or making decisions? Answer Entry Date Author Status No 01/03/2022 2:00 AM Yefri Gross RN Active documented in this encounter Plan of Treatment Upcoming Encounters Date Type Department Care Team (Late st Contact Info) Description 10/05/2025 1:30 AM DIRECT CHILL CASTER Allied Health/Nurse Visit [facility] [address] [place] [address] Yvonne Mosqueda MD [address] [place] [address] 11/21/2025 12:30 PM DIRECT CHILL CASTER Allied Health/Nurse Visit [facility] [address] [place] [address] Jimena Valle, GLEN [address] [phone] 11/21/2025 1:00 PM DIRECT CHILL CASTER Office Visit [facility] [address] [place] [address] Jimena Valle TRANSPORTATION PROGRAM DIRECTOR [address] [phone] documented as of this encounter Goals Goal Patient Goal Type Associated Problems Recent Progress Patient-Stated? Author Medications - able to self-administer medications General Marita Hanks, RN Health - patient able to perform ADLs independently General Marita Hanks, RN Patient will return to prior living situation and remain independent in ADLs upon discharge from hospital General Marita Hanks RN documented as of this encounter Visit Diagnoses Not on filedocumented in this encounter Additional Health Concerns Infection Onset Date Last Indicated Resolved Time 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 08/20/2017 COVID-19 Rule Out 06/21/2022 06/21/2022 06/21/2022 9:41 PM CDT documented as of this encounter Care Teams Reject Opener Relationship Specialty Start Date End Date Eran Masterson MD [address] [facility] [place] [address] PCP - General FAMILY PRACTICE 07/03/16 09/10/25 David Reyes MD [address] [place] [address] PCP - General [facility] PRACT[facility] 09/11/25 Yvonne Mosqueda MD [address] [place] [address] CLINICAL CARDIAC ELECTROPHYSIOLOGY 07/03/16 Sohail Stafford MD [address] [place] [address] CARDIOVASCULAR DISEASE 11/03/16 11/12/24 Hailee Watts MD [address] [facility] [address] ENDOCRINOLOGY 09/13/19 05/18/22 Oscar Anderson MD [facility] DEPT OF SURGERY - NEUROSURGERY [address] [place] [address] NEUROLOGICAL SURGERY 11/26/20 11/22/22 Theresa Hsieh III, MD [facility] DEPT OF SURGERY - NEUROSURGERY [address] [place] [address] Consulting Physician UROLOGY 01/22/21 11/22/22 Noemi Huynh MD [address] [place] [address] OTOLARYNGOLOGY 01/22/21 11/22/22 Mario Salazar MD [address] [place] [phone] UROLOGY 11/23/22 Arreola, Marti M, RN Registered Nurse CARE MANAGEMENT 01/29/25 02/26/25 documented as of this encounter
--- OUTSIDE RECORDS SUMMARY | 2025-09-21 06:56 | XMS_ITS | Encounter Summary ---
Author Organization [facility] Address [address] [place] [address] Care Team Providers Care Educational Audiologist Name Role Phone Eran Masterson MD Primary Care Provider [phone] Yvonne Mosqueda MD Unavailable Sohail Stafford MD Unavailable Unavail able Hailee Watts MD Unavailable [phone] Loni Ang MD Unavailable Monica Gauthier MD, Devin Unavailable [phone] Jori MATHIAS MD, Courtney Unavailable [phone] Noemi Huynh MD Unavailable Mario Salazar MD Unavailable [phone] Marti Arreola RN Unavailable Unavailable David Reyes MD Primary Care Provider [phone] Encounter Details Date Type Department Care Team (Late st Contact Info) Description 03/04/2019 Abstract SFL CONVERSION [address] [place] [address] , Generic Conversion, Social History Tobacco Use Types Packs/Day Years Used Date Smoking Tobacco: Former Smokeless Tobacco: Former Chew Comments:Past smoker, regina hooper uses smokeless tobacco ([place]). Alcohol Use Standard Drinks/Week Comments No 0 [...] Upcoming Encounters Date Type Department Care Team ([facility] st Contact Info) Description 10/05/2025 1:30 AM JOINERY PATTERNMAKER Allied Health/Nurse Visit [facility] [place] [address] [place] [address] Yvonne Mosqueda MD [address] [place] [address] 11/21/2025 12:30 PM JOINERY PATTERNMAKER Allied Health/Nurse Visit [facility] [address] [place] [address] Jimena Valle NP [address] [address] 11/21/2025 1:00 PM JOINERY PATTERNMAKER Office Visit [facility] [address] [place] [address] Jimena Valle NP [address] [address] documented as of this encounter Visit Diagnoses [...] Rule Out 08/23/2021 08/23/2021 08/23/2021 7:52 PM JOINERY PATTERNMAKER COVID-19 Rule Out 10/04/2021 10/04/2021 10/04/2021 8:30 PM JOINERY PATTERNMAKER COVID-19 Rule Out 11/08/2021 11/08/2021 11/08/2021 6:51 PM JOINERY PATTERNMAKER COVID-19 Rule Out 12/13/2021 12/13/2021 12/13/2021 7:13 PM CDT COVID-19 Rule Out 12/30/2021 12/30/2021 12/30/2021 8:06 PM CDT COVID-19 Rule Out 06/21/2022 06/21/2022 06/21/2022 9:41 PM CDT documented as of this encounter Care Teams Educational Audiologist Relationship Specialty Start Date End Date Eran Masterson MD [address] [place] [address] PCP - General FAMILY PRACTICE 07/03/16 09/10/25 David Reyes MD [address] [place] [address] PCP - General FAMILY PRACTICE 09/11/25 Yvonne Mosqueda MD [address] [place] [address] CLINICAL CARDIAC ELECTROPHYSIOLOGY 07/03/16 Sohail Stafford MD [address] [place] [address] CARDIOVASCULAR DISEASE 11/03/16 11/12/24 Hailee Watts MD [address] [place] [address] ENDOCRINOLOGY 09/13/19 05/18/22 Loni Ang MD [address] [place] [address] INTERNAL MEDICINE 09/13/19 11/25/20 Oscar Anderson MD [facility] DEPT OF SURGERY - NEUROSURGERY [address] [place] [address] NEUROLOGICAL SURGERY 11/26/20 11/22/22 Theresa Hsieh III, MD [facility] DEPT OF SURGERY - NEUROSURGERY [address] [place] [address] Consulting Physician UROLOGY 01/22/21 11/22/22 Noemi Huynh MD [address] [place] [address] OTOLARYNGOLOGY 01/22/21 11/22/22 Mario Salazar MD [address] [place] [address] UROLOGY 11/23/22 Marti Arreola RN Registered Nurse CARE MANAGEMENT 01/29/25 02/26/25 documented as of this encounter
--- OUTSIDE RECORDS SUMMARY | 2025-09-21 06:56 | XMS_ITS | Encounter Summary ---
Author Organization [facility] Address [address] [place] [address] Care Team Providers Care Hot Repairman Name Role Phone Eran Masterson MD Primary Care Provider [phone] Yvonne Mosqueda MD Unavailable Sohail Stafford MD Unavailable Unavail able Hailee Watts MD Unavailable [phone] Loni Ang MD Unavailable Monica Gauthier MD, Devin Unavailable [phone] Jori MATHIAS MD, Courtney Unavailable [phone] Noemi Huynh MD Unavailable Mario Salazar MD Unavailable [phone] Marti Arreola RN Unavailable Unavailable David Reyes MD Primary Care Provider [phone] Encounter Details Date Type Department Care Team (Late st Contact Info) Description 12/11/2017 Abstract [facility] CONVERSION [address] [place], [place] [phone] , Generic Conversion, Social History Tobacco Use Types Packs/Day Years Used Date Smoking Tobacco: Former Smokeless Tobacco: Former Chew Comments:Past smoker, regina brownhue uses smokeless tobacco ([place]). Alcohol Use Standard Drinks/Week Comments No 0 [...] Upcoming Encounters Date Type Department Care Team ([facility] st Contact Info) Description 10/05/2025 1:30 AM HORTICULTURAL THERAPIST Allied Health/Nurse Visit [facility] [address] [place] [address] Yvonne Mosqueda MD [address] [place] [address] 11/21/2025 12:30 PM HORTICULTURAL THERAPIST Allied Health/Nurse Visit [facility] [address] [place] [address] Jimena Valle NP [address] [address] 11/21/2025 1:00 PM HORTICULTURAL THERAPIST Office Visit [facility] [address] [place] [address] Jimena Valle NP [address] [address] documented as of this encounter Visit Diagnoses [...] Rule Out 08/23/2021 08/23/2021 08/23/2021 7:52 PM HORTICULTURAL THERAPIST COVID-19 Rule Out 10/04/2021 10/04/2021 10/04/2021 8:30 PM HORTICULTURAL THERAPIST COVID-19 Rule Out 11/08/2021 11/08/2021 11/08/2021 6:51 PM HORTICULTURAL THERAPIST COVID-19 Rule Out 12/13/2021 12/13/2021 12/13/2021 7:13 PM CDT COVID-19 Rule Out 12/30/2021 12/30/2021 12/30/2021 8:06 PM CDT COVID-19 Rule Out 06/21/2022 06/21/2022 06/21/2022 9:41 PM CDT documented as of this encounter Care Teams Hot Repairman Relationship Specialty Start Date End Date Eran Masterson MD [address] [place] [address] PCP - General FAMILY PRACTICE 07/03/16 09/10/25 David Reyes MD [address] [place] [address] PCP - General FAMILY PRACTICE 09/11/25 Yvonne Mosqueda MD [address] [place] [address] CLINICAL CARDIAC ELECTROPHYSIOLOGY 07/03/16 Sohail Stafford MD [address] [place] [address] CARDIOVASCULAR DISEASE 11/03/16 11/12/24 Hailee Watts MD [address] [place] [address] ENDOCRINOLOGY 09/13/19 05/18/22 Loni Ang MD [address] [place] [address] INTERNAL MEDICINE 09/13/19 11/25/20 Oscar Anderson MD [facility] DEPT OF SURGERY - NEUROSURGERY [address] [address] NEUROLOGICAL SURGERY 11/26/20 11/22/22 Theresa Hsieh III, MD [facility] DEPT OF SURGERY - NEUROSURGERY [address] [place] [address] Consulting Physician UROLOGY 01/22/21 11/22/22 Noemi Huynh MD [address] [place] [address] OTOLARYNGOLOGY 01/22/21 11/22/22 Mario Salazar MD [address] [place] [address] UROLOGY 11/23/22 Marti Arreola RN Registered Nurse CARE MANAGEMENT 01/29/25 02/26/25 documented as of this encounter
--- OUTSIDE RECORDS SUMMARY | 2025-09-21 06:57 | XMS_ITS ---
Author Organization Unknown Address [address] [place] [phone] Phone Care Team Providers Care Civil Engineering Designer Name Role Phone MANDY PONCE Attending Unavailable [...] Code Syst em Smoking History Former smoker 2217640 SNOMED CT Sex Male Medications Medication Start Date End Date Route Frequency Dose Code Code System Medication Instructions Home Meds Artificial Tears Ophthalmic Solution 02/05/2023 Unknown BOTH EYES NEEDED EVERY 2 HOURS 1 unit(s) 387957 RxNorm INSTILL IN 1 EACH BOTH EYES NEEDED EVERY 2 HOURS Aspirin 81MG Oral Tablet, Chewable 02/05/2023 Unknown ORAL ONCE A DAY 81 MILLIGRAMS 141217 RxNorm TAKE 81 MILLIGRAMS ORAL ONCE A DAY Atorvastatin Calcium 20MG Oral Tablet 02/05/2023 Unknown ORAL AT BEDTIME 20 MILLIGRAMS 671035 RxNorm TAKE 20 MILLIGRAMS ORAL AT BEDTIME Carvedilol 12.5MG Oral Tablet 02/05/2023 Unknown ORAL TWICE A DAY WITH MEALS 12.5 MILLIGRAMS 19991127 RxNorm TAKE 12.5 MILLIGRAMS ORAL TWICE A DAY WITH MEALS Citalopram Hydrobromide 20MG Oral Tablet 02/05/2023 Unknown ORAL ONCE A DAY 20 MILLIGRAMS 820855 RxNorm TAKE 20 MILLIGRAMS ORAL ONCE A DAY Clopidogrel 75MG Oral Tablet 02/05/2023 Unknown ORAL ONCE A DAY 75 MILLIGRAMS 145570 RxNorm TAKE 75 MILLIGRAMS ORAL ONCE A DAY Docusate Sodium 100MG Oral Capsule, Liquid Filled 02/05/2023 Unknown ORAL TWICE A DAY 100 MILLIGRAMS 6166636 RxNorm TAKE 100 MILLIGRAMS ORAL TWICE A DAY Famotidine 20MG Oral Tablet 02/05/2023 Unknown ORAL AT BEDTIME 20 MILLIGRAMS 673577 RxNorm TAKE 20 MILLIGRAMS ORAL AT BEDTIME Ferrous Sulfate 325MG Oral Tablet 02/05/2023 Unknown ORAL TWICE A DAY 325 MILLIGRAMS 869848 RxNorm TAKE 325 MILLIGRAMS ORAL TWICE A DAY Gabapentin 600MG Oral Tablet 02/05/2023 Unknown ORAL EVERY 12 HOURS 600 MILLIGRAMS 177066 RxNorm TAKE 600 MILLIGRAMS ORAL EVERY 12 HOURS Lantus 100U/1ML Subcutaneous Solution 02/05/2023 Unknown SUBCUTAN EOUS AT BEDTIME 25 unit(s) 733483 RxNorm INJECT INTO 25 EACH SUBCUTANEO US AT BEDTIME Magnesium Oxide 400MG Oral Tablet 02/05/2023 Unknown ORAL ONCE A DAY 400 MILLIGRAMS 137611 RxNorm TAKE 400 MILLIGRAMS ORAL ONCE A DAY Methocarbamol 500MG Oral Tablet 02/05/2023 Unknown ORAL NEEDED 4 TIMES A DAY 49076 MILLIGRAMS 729943 RxNorm TAKE 75120 MILLIGRAMS ORAL NEEDED 4 TIMES A DAY Nystatin 859811W/1GM Topical application Cream 02/05/2023 Unknown TOPICAL NEEDED TWICE A DAY 1 unit(s) 374534 RxNorm APPLY TO 1 EACH TOPICAL NEEDED TWICE A DAY Omeprazole 40MG Oral Capsule, Delayed Release 02/05/2023 Unknown ORAL ONCE A DAY 40 MILLIGRAMS 20021105 RxNorm TAKE 40 MILLIGRAMS ORAL ONCE A DAY Tamsulosin HCl 0.4MG Oral Capsule 02/05/2023 Unknown ORAL AT BEDTIME 0.4 MILLIGRAMS 422489 RxNorm TAKE 0.4 MILLIGRAMS ORAL AT BEDTIME Triamcinolone Acetonide 0.1% Topical application Cream 02/05/2023 Unknown TOPICAL NEEDED 3 TIMES A DAY 1 unit(s) 3819217 RxNorm APPLY TO 1 EACH TOPICAL NEEDED 3 TIMES A DAY hydrOXYzine Pamoate 25MG Oral Capsule 02/05/2023 Unknown ORAL NEEDED EVERY 6 HOURS 25 MILLIGRAMS 108705 RxNorm TAKE 25 MILLIGRAMS ORAL NEEDED EVERY 6 HOURS traZODone hydrochloride 50MG Oral Tablet 02/05/2023 Unknown ORAL AT BEDTIME 50 MILLIGRAMS 212022 RxNorm TAKE 50 MILLIGRAMS ORAL AT BEDTIME [...] Status Code Code System GROSS HEMATURIA active 788382023 SN ED-CT Allergies and Adverse Reactions Allergy Substance Reaction Severity Start Date Concern Status Co de Code System CEPHALOSPORIN Active 394009307 SNOMED-C T Plan of Treatment CT Abdomen/Pelvis WWO Contrast (54460) 11/27/2025 Encounters Encounter Diagnosis Start Date Code Code Sys tem Malignant neoplasm of unspec ified kidney, except renal pelvis 12/06/2024 SNOMED-CT Personal Care Team Section Performer Name Performer Role Active Date Inactive CEHY Smith PCP - Primary care physician 9
--- OUTSIDE RECORDS SUMMARY | 2025-09-21 06:57 | XMS_ITS ---
Author Organization Unknown Address [address] [place], [place] [id number] Phone Care Team Providers Care Pet Training Instructor Name Role Phone MANDY PONCE Attending Unavailable [...] BUN/CREAT - Collect Date/Severino e: 03/28/2024 11:35 [facility] ID: [id number] [address] [place], [place], [id number] LOINC: 3097-3 Test Value Unit Reference Range Code Code System Flag BUN 26 mg/dL L=7 H=20 3094-0 LOINC H CREATININE 1.50 mg/dL L=0.66 H=1.25 2160-0 LOINC H AGE 78 35183-8 LOINC eGFR NON-AFR 48 ml/min eGFR AFR [...] Billy Daniel M.D. 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 [id number] lumbar spondylosis. OTHER: No other abnormality. IMPRESSION: ? ? Right nephrectomy with no evidence of local recurrence or lymphadenopathy in the abdomen or pelvis. ? ? Right hemicolectomy with patent anastomosis. ? ? Colonic diverticulosis. ? ? Additional chronic findings above. THIS IS AN ELECTRONICALLY VERIFIED FINAL REPORT 03/29/2024 12:38 PM - Electronically signed by Jonnie Gupta M.D. AG: WILLIAM Report ID: [id number] Reading Location: [id number] Social History Type Status Start Date End Date Code Code Syst em Smoking History Former smoker 2305521 SNOMED CT Sex Male Medications Medication Start Date End Date Route Frequency Dose Code Code System Medication Instructions Home Meds Artificial Tears Ophthalmic Solution 02/05/2023 Unknown BOTH EYES NEEDED EVERY 2 HOURS 1 unit(s) 893507 RxNorm INSTILL IN 1 EACH BOTH EYES NEEDED EVERY 2 HOURS Aspirin 81MG Oral Tablet, Chewable 02/05/2023 Unknown ORAL ONCE A DAY 81 MILLIGRAMS 411009 RxNorm TAKE 81 MILLIGRAMS ORAL ONCE A DAY Atorvastatin Calcium 20MG Oral Tablet 02/05/2023 Unknown ORAL AT BEDTIME 20 MILLIGRAMS 254054 RxNorm TAKE 20 MILLIGRAMS ORAL AT BEDTIME [...] Unknown ORAL ONCE A DAY 75 MILLIGRAMS 735817 RxNorm TAKE 75 MILLIGRAMS ORAL ONCE A DAY Docusate Sodium 100MG Oral Capsule, Liquid Filled 02/05/2023 Unknown ORAL TWICE A DAY 100 MILLIGRAMS 2536068 RxNorm TAKE 100 MILLIGRAMS ORAL TWICE A DAY Famotidine 20MG Oral Tablet 02/05/2023 Unknown ORAL AT BEDTIME 20 MILLIGRAMS 123507 RxNorm TAKE 20 MILLIGRAMS ORAL AT BEDTIME Ferrous Sulfate 325MG Oral Tablet 02/05/2023 Unknown ORAL TWICE A DAY 325 MILLIGRAMS 899161 RxNorm TAKE 325 MILLIGRAMS ORAL TWICE A DAY Gabapentin 600MG Oral Tablet 02/05/2023 Unknown ORAL EVERY 12 HOURS 600 MILLIGRAMS 636929 RxNorm TAKE 600 MILLIGRAMS ORAL EVERY 12 HOURS Lantus 100U/1ML Subcutaneous Solution 02/05/2023 Unknown SUBCUTAN EOUS AT BEDTIME 25 unit(s) 884083 RxNorm INJECT INTO 25 EACH SUBCUTANEO US AT BEDTIME Magnesium Oxide 400MG Oral Tablet 02/05/2023 Unknown ORAL ONCE A DAY 400 MILLIGRAMS 19861226 RxNorm TAKE 400 MILLIGRAMS ORAL ONCE A DAY Methocarbamol 500MG Oral Tablet 02/05/2023 Unknown ORAL NEEDED 4 TIMES A DAY 31135 MILLIGRAMS 19781228 RxNorm TAKE 79657 MILLIGRAMS ORAL NEEDED 4 TIMES A DAY Nystatin 160643V/1GM Topical application Cream 02/05/2023 Unknown TOPICAL NEEDED TWICE A DAY 1 unit(s) 761616 RxNorm APPLY TO 1 EACH TOPICAL NEEDED TWICE A DAY Omeprazole 40MG Oral Capsule, Delayed Release 02/05/2023 Unknown ORAL ONCE A DAY 40 MILLIGRAMS 20021105 RxNorm TAKE 40 MILLIGRAMS ORAL ONCE A DAY Tamsulosin HCl 0.4MG Oral Capsule 02/05/2023 Unknown ORAL AT BEDTIME 0.4 MILLIGRAMS 591692 RxNorm TAKE 0.4 MILLIGRAMS ORAL AT BEDTIME Triamcinolone Acetonide 0.1% Topical application Cream 02/05/2023 Unknown TOPICAL NEEDED 3 TIMES A DAY 1 unit(s) 8308078 RxNorm APPLY TO 1 EACH TOPICAL NEEDED 3 TIMES A DAY hydrOXYzine Pamoate 25MG Oral Capsule 02/05/2023 Unknown ORAL NEEDED EVERY 6 HOURS 25 MILLIGRAMS 762805 RxNorm TAKE 25 MILLIGRAMS ORAL NEEDED EVERY 6 HOURS traZODone hydrochloride 50MG Oral Tablet 02/05/2023 Unknown ORAL AT BEDTIME 50 MILLIGRAMS 459663 RxNorm TAKE 50 MILLIGRAMS ORAL AT BEDTIME [...] Status Code Code System GROSS HEMATURIA active 032698680 SNOM ED-CT Allergies and Adverse Reactions Allergy Substance Reaction Severity Start Date Concern Status Co de Code System CEPHALOSPORIN Active 386656119 SNOMED-C T Plan of Treatment CT Abdomen/Pelvis WWO Contrast (45912) 11/27/2025 Encounters Encounter Diagnosis Start Date Code Code Sys tem Malignant neoplasm of unspec ified kidney, except renal pelvis 03/28/2024 SNOMED-CT Personal Care Team Section Performer Name Performer Role Active Date Inactive CHEY Smith PCP - Primary care physician 9 Imaging Narrative Notes
--- OUTSIDE RECORDS SUMMARY | 2025-09-21 06:57 | XMS_ITS | Encounter Summary ---
Author Organization [facility] Address [address] [place] [address] Care Team Providers Care Marine Engineering Teacher Name Role Phone Eran Masterson MD Primary Care Provider [phone] Yvonne Mosqueda MD Unavailable Sohail Stafford MD Unavailable Unavail able Hailee Watts MD Unavailable [phone] Loni Ang MD Unavailable Monica Gauthier MD, Devin Unavailable [phone] Jori MATHIAS MD, Courtney Unavailable [phone] Noemi Huynh MD Unavailable Mario Salazar MD Unavailable [phone] Marti Arreola RN Unavailable Unavailable David Reyes MD Primary Care Provider [phone] Encounter Details Date Type Department Care Team (Late st Contact Info) Description 02/28/2014 Abstract [facility] AT [address] [place] [address] Sohail Stafford MD Social History Tobacco Use Types Packs/Day Years Used Date Smoking Tobacco: Former Smokeless Tobacco: Current Chew Comments:Past smoker, regina hooper uses smokeless tobacco ([place]). Alcohol Use Standard Drinks/Week Comments No 0 [...] Upcoming Encounters Date Type Department Care Team ([facility] Contact Info) Description 10/05/2025 1:30 AM INFECTION CONTROL SPECIALIST Allied Health/Nurse Visit [facility] [address] [place] [address] Yvonne Mosqueda MD [address] [place] [address] 11/21/2025 12:30 PM INFECTION CONTROL SPECIALIST Allied Health/Nurse Visit [facility] [address] [place] [address] Jimena Valle NP [address] [address] 11/21/2025 1:00 PM INFECTION CONTROL SPECIALIST Office Visit [facility] [address] [place] [address] Jimena Valle NP [address] [address] documented as of this encounter Visit Diagnoses [...] Rule Out 08/23/2021 08/23/2021 08/23/2021 7:52 PM INFECTION CONTROL SPECIALIST COVID-19 Rule Out 10/04/2021 10/04/2021 10/04/2021 8:30 PM INFECTION CONTROL SPECIALIST COVID-19 Rule Out 11/08/2021 11/08/2021 11/08/2021 6:51 PM INFECTION CONTROL SPECIALIST COVID-19 Rule Out 12/13/2021 12/13/2021 12/13/2021 7:13 PM CDT COVID-19 Rule Out 12/30/2021 12/30/2021 12/30/2021 8:06 PM CDT COVID-19 Rule Out 06/21/2022 06/21/2022 06/21/2022 9:41 PM CDT documented as of this encounter Care Teams Marine Engineering Teacher Relationship Specialty Start Date End Date Eran Masterson MD [address] [place] [phone] PCP - General FAMILY PRACTICE 07/03/16 09/10/25 David Reyes MD [address] [place] [address] PCP - General FAMILY PRACTICE 09/11/25 Yvonne Mosqueda MD [address] [place] [address] CLINICAL CARDIAC ELECTROPHYSIOLOGY 07/03/16 Sohail Stafford MD [address] [place] [address] CARDIOVASCULAR DISEASE 11/03/16 11/12/24 Hailee Watts MD [address] [place] [address] ENDOCRINOLOGY 09/13/19 05/18/22 Loni Ang MD [address] [place] [address] INTERNAL MEDICINE 09/13/19 11/25/20 Oscar Anderson MD [facility] DEPT OF SURGERY - NEUROSURGERY [address] [place] [address] NEUROLOGICAL SURGERY 11/26/20 11/22/22 Theresa Hsieh III, MD [facility] DEPT OF SURGERY - NEUROSURGERY [address] [place] [address] Consulting Physician UROLOGY 01/22/21 11/22/22 Noemi Huynh MD [address] [place] [address] OTOLARYNGOLOGY 01/22/21 11/22/22 Mario Salazar MD [address] [place] [id number] UROLOGY 11/23/22 Marti Arreola, KRISHAN Registered Nurse CARE MANAGEMENT 01/29/25 02/26/25 documented as of this encounter
[2025-09-21 07:32] LABS: Anion Gap 9 mmol/L (4-12); Blood Urea Nitrogen 37 mg/dL (9-20); Calcium 8.7 mg/dL (8.4-10.2); Carbon Dioxide 29 mmol/L (22-30); Chloride 101 mmol/L (98-107); Estimated Glomerular Filt Rate 33; Glucose 93 mg/dL (65-110); Osmolality Calculated 296 mOsm/kg (285-295); Potassium 4.0 mmol/L (3.4-5.0); Sodium 139 mmol/L (137-145)
[2025-09-21 07:39] LABS: NT Pro B Type Natriuretic Pept 2090 pg/mL (19.9-100)
== END 2025-09-21 06:53 | disposition home or self-care (01) ==
PROVIDERS: PCP Family Medicine; Visit Provider Family Medicine
DX: I67.82 Cerebral ischemia (principal)
CPT/HCPCS: 36415; 80048; 83880